=== PATIENT | female | born 1955 | race Caucasian/White ===

== ENCOUNTER 2022-04-02 12:51 | Inpatient (IN) ==
[2022-04-02] MEDS ORDERED: SODIUM CHLORIDE 0.9% 1000ML 1,000 ML IV ONE (12:57)
[2022-04-02] MEDS ORDERED: LORazepam 1 MG/1 ML SYR IV STA (12:57)
[2022-04-02] MEDS ORDERED: LORazepam 1 MG/1 ML SYR ONE (12:59)
--- NOTE | 2022-04-02 13:00 | Emergency Department Note ---
Impression & Plan Severe sepsis with septic shock, Encephalopathy acute, Lactic acidosis, Pneumonia, Elevated troponin, MICHA (acute kidney injury) ED Provider Note Name: JASPREET SANTIZO Age: 66 Sex: F Arrives Via: Ambulance Informant: EMS ED Provider: Vik Daly MD Chief Complaint: Altered mental status Impression: As per impressions above Medical Decision Makin-year-old female without any known past medical history though by examination appears cirrhotic. Patient arrives after having not been seen for 3 days. EMS had to break down her door with police due to patient screaming loudly and neighbors calling 911. Patient arrives hypotensive, confused but severely combative. Temperature is somewhat on the low side. Given the combative behavior with encephalopathy she was given a small dose of Ativan. This resulted in patient actually significantly calm and continues to maintain her own airway with good oxygenation. Septic work-up initiated and she was given 1 L fluid for her initial hypotension. Rectal exam reveals heme positive black stool. She was started on Protonix and hemoglobin returned at 3.5. She was given 2 units of blood emergently. Further IV fluids were held given the severe anemia. Due to worsening hypotension Levophed was ordered as well. She was given empiric IV antibiotics. Initial lactic acid is elevated. This is all consistent with septic shock. Initial chest x-ray is concerning for bilateral pneumonia. A CT of the head, neck, chest, abdomen pelvis without contrast due to renal failure was obtained which reveals bilateral pneumonia no evidence of intracranial hemorrhage. Initial ammonia was hemolyzed thus did not report during my evaluation. She was not given 30 mL/kg IV fluids given the setting of severe anemia and not wishing to dilute and the acute renal failure. She did receive 1 L of normal saline. She had multiple repeat evaluations by both me and the hospitalist and critical care team. Her blood pressure did remain a bit on the low side though maps were sticking right around 65. Patient continued to maintain her airway with good oxygenation. UA is dirty but may be consistent with UTI as well. Critical care was at bedside and placed central line my read revealed no pneumothorax and right IJ could be used for pressors. Patient was transferred to the ICU for further management. Prior Medical Record and Triage/Nursing Notes reviewed by Me Additional history obtained from ems Differentials:Infection, hypoglycemia, electrolyte abnormalities, overdose, toxicologic, cardiac sources, intracerebral event, neurologic, trauma, as well as other pathologies. Vital Signs: reviewed and remarkable for hypotension hypothermia Interventions: Normal saline bolus 1 L IV, 2 units PRBCs IV, Levophed IV, Zosyn IV, Protonix IV Labs:Reviewed and remarkable for significant laboratory abnormalities including hemoglobin of 3.5, elevated white blood cell count, elevated troponin, elevated lactic acid Imaging:As per radiologist reports. Chest x-ray with bilateral pneumonia. CT of the head, neck, chest, abdomen pelvis with bilateral pneumonia EKG:Per My Interpretation: Indication weakness: NSR 91 bpm, qtc 440. No Ectopy. No Ischemia. No previous for comparison Cardiac/Tele Monitoring: Cardiac Monitoring: An Order was placed for continuous cardiac monitoring. The monitor shows a rate of 91 with a normal sinus rhythm. Consults:Dr. Sylvester of critical care service and Dr. Simons of the [facility] service Plan: Disposition:Hospitalization. Condition: Critical History of Present Illness:66-year-old female arrives for evaluation of altered mental status. Patient reportedly had not been seen in several days by her neighbors when they started hearing yelling this morning. Door was broken down by police. Patient was found laying on the ground screaming loudly. She was confused and altered. They were unable to get any history from her EMS brought her in for further evaluation. Apparently blood sugar was normal prior to arrival. Reportedly she was hypotensive, hypoxic on arrival as well for EMS. She was placed on nonrebreather prior to arrival with improvement in her oxygen. No medications prior to arrival. No significant history is known about the patient. ROS: unable to obtain due to patient's altered mental status Past Medical History:Unable to obtain Past Surgical History:Unable to obtain Family History:Unable to obtain Social History:Unable to obtain Home Medications:Unknown Allergies:Unknown Vitals:Blood Pressure: 76/40, Pulse 80, RR 20, T 35.3C, O2 98% on NRB Physical Exam: GENERAL: Patient is unwell/pale appearing and in moderate distress. Periodically yelling unintelligibly, not following commands EYES: No scleral icterus, unremarkable pupils. ENT: Mucous membranes moist, no nasal congestion. NECK: No masses appreciated, nomeningismus, trachea is midline. RESPIRATORY: No dyspnea. Clear to auscultation and equal bilaterally. No wheeze, no rhonchi. CARDIOVASCULAR: Regular rate and rhythm.No murmurs, rubs, gallops appreciated. GASTROINTESTINAL: Abdomen soft, non-tender, no peritonitis.Bowel sounds positive.No masses appreciated. BACK: No midline tenderness, no CVA tenderness EXTREMITIES: Normal motion all extremities, no cyanosis, pitting edema bilateral lower legs NEUROLOGIC: Confused altered, moving all extremities, periodically yelling unintelligibly,, no acute motor or sensory deficits, no focal weakness, cranial nerves grossly intact. SKIN: Age indeterminant bruising left lower chest, right upper lateral back, No rash, no jaundice, no diaphoresis GCS 12 ED Course: Times/Reassessments: Many repeat evaluations and bedside management of patient throughout her stay. Critical Care: I have personally spent 90 minutes of critical care time in the direct management of this patient. Acute encephalopathy with severe anemia, septic shock and GI bleed. Patient requiring resuscitation, blood products, pressors and extensive management. This was a life/limb threatening event. This 90 minutes is in excess of all separately billable procedures. Vik Daly MD Past Med/Surg History Medical History (Updated 04/02/22 @ 20:54 by Vik Daly MD) Medical history unknown Unknown family medical history Surgical History (Updated 04/02/22 @ 19:04 by Celine Simons DO) Surgical history unknown Family History (Updated 04/02/22 @ 19:05 by Celine Simons DO) Other No known problems Social History Smoking Status: Unknown if ever smoked Preferred Language: American Communication Ability: Unable Kosher Inspector Required: No Beliefs That Will Affect Care: None Current Living Situation: Alone Current Living Situation Comment: apartment Feels Safe at Home: Declines to Answer Assistive Devices: None Allergies Allergies Allergy/AdvReac Type Severity Reaction Status Date / Time Sulfa (Sulfonamide Allergy Severe EYES AND Unverified 04/02/22 17:06 Antibiotics) THROAT SWELLING Home Meds Home Medications Medication Instructions Recorded Confirmed fluticasone propionate 50 1 spray intranasal UD 04/02/22 04/02/22 mcg/actuation nasal spray,suspension hydrochlorothiazide 12.5 mg tablet 12.5 mg PO DAILY 04/02/22 04/02/22 loratadine 10 mg tablet 10 mg PO DAILY 04/02/22 04/02/22 Results & Data (ED) Vital Signs Vital Signs - 24 hr 04/02/22 13:11 04/02/22 13:50 04/02/22 14:20 Temperature 35.5 C L 35.5 C L Temperature Source Rectal Rectal Pulse Rate 86 82 Pulse Rate [Apical] 86 Pulse Rate from SpO2 Sensor Respiratory Rate 16 14 12 Blood Pressure 78/56 L 78/57 L Blood Pressure [Left Arm] 86/55 L Blood Pressure Mean 63 64 Blood Pressure Mean [Left Arm] 65 Pulse Oximetry 99 99 98 Oxygen Delivery Method Room Air Room Air Oxygen Flow Rate 0 Sepsis Recent Fever Within 48 Hours No Sepsis New/Unexplained Change in Mental Status Yes Sepsis Action Taken by Nursing Physician Notified 04/02/22 14:26 04/02/22 14:40 04/02/22 13:01 Temperature 35.5 C L 35.5 C L Temperature Source Rectal Rectal Pulse Rate 87 87 Pulse Rate [Apical] Pulse Rate from SpO2 Sensor Respiratory Rate 14 14 Blood Pressure 78/56 L 87/56 L 94/62 L Blood Pressure [Left Arm] Blood Pressure Mean 63 66 72 Blood Pressure Mean [Left Arm] Pulse Oximetry 98 98 Oxygen Delivery Method Oxygen Flow Rate 0 0 Sepsis Recent Fever Within 48 Hours Sepsis New/Unexplained Change in Mental Status Sepsis Action Taken by Nursing 04/02/22 13:01 04/02/22 13:15 04/02/22 13:17 Temperature Temperature Source Pulse Rate 90 85 86 Pulse Rate [Apical] Pulse Rate from SpO2 Sensor 91 H 84 86 Respiratory Rate 20 16 20 Blood Pressure Blood Pressure [Left Arm] Blood Pressure Mean Blood Pressure Mean [Left Arm] Pulse Oximetry 100 100 100 Oxygen Delivery Method Oxygen Flow Rate Sepsis Recent Fever Within 48 Hours Sepsis New/Unexplained Change in Mental Status Sepsis Action Taken by Nursing 04/02/22 13:17 04/02/22 13:41 04/02/22 13:45 Temperature Temperature Source Pulse Rate 88 Pulse Rate [Apical] Pulse Rate from SpO2 Sensor Respiratory Rate 7 L Blood Pressure 81/51 L 86/55 L Blood Pressure [Left Arm] Blood Pressure Mean 61 65 Blood Pressure Mean [Left Arm] Pulse Oximetry Oxygen Delivery Method Oxygen Flow Rate Sepsis Recent Fever Within 48 Hours Sepsis New/Unexplained Change in Mental Status Sepsis Action Taken by Nursing 04/02/22 13:45 04/02/22 14:00 04/02/22 14:00 Temperature Temperature Source Pulse Rate 88 86 Pulse Rate [Apical] Pulse Rate from SpO2 Sensor 88 86 Respiratory Rate 18 16 Blood Pressure 75/55 L Blood Pressure [Left Arm] Blood Pressure Mean 61 Blood Pressure Mean [Left Arm] Pulse Oximetry 98 99 Oxygen Delivery Method Oxygen Flow Rate Sepsis Recent Fever Within 48 Hours Sepsis New/Unexplained Change in Mental Status Sepsis Action Taken by Nursing 04/02/22 14:15 04/02/22 14:15 04/02/22 14:30 Temperature Temperature Source Pulse Rate 82 Pulse Rate [Apical] Pulse Rate from SpO2 Sensor 82 Respiratory Rate 16 Blood Pressure 78/57 L 87/56 L Blood Pressure [Left Arm] Blood Pressure Mean 64 66 Blood Pressure Mean [Left Arm] Pulse Oximetry 98 Oxygen Delivery Method Oxygen Flow Rate Sepsis Recent Fever Within 48 Hours Sepsis New/Unexplained Change in Mental Status Sepsis Action Taken by Nursing 04/02/22 14:30 04/02/22 14:45 04/02/22 14:45 Temperature Temperature Source Pulse Rate 86 88 Pulse Rate [Apical] Pulse Rate from SpO2 Sensor 87 89 Respiratory Rate 15 16 Blood Pressure 74/57 L Blood Pressure [Left Arm] Blood Pressure Mean 62 Blood Pressure Mean [Left Arm] Pulse Oximetry 99 98 Oxygen Delivery Method Oxygen Flow Rate Sepsis Recent Fever Within 48 Hours Sepsis New/Unexplained Change in Mental Status Sepsis Action Taken by Nursing Laboratory Data Result diagrams: 04/02/22 13:02 04/02/22 17:22 Lab Results 04/02/22 04/02/22 04/02/22 Range/Units 13:02 13:02 13:02 WBC (4.8-10.8) K/ul RBC (3.93-5.22) M/uL Hgb (12.0-16.0) g/dl POC Hgb Hct (34.1-44.9) % POC Hct (37-47) % MCV (80.0-100.0) fL MCH (25.0-34.0) pg MCHC (32.0-36.0) g/dL RDW Std Deviation (36.4-46.3) fL RDW Coeff of Jaylin (11.5-14.5) % Plt Count (130-400) K/uL MPV (9.4-12.3) fL Immature Gran % (Auto) % Neut % (Auto) % Lymph % (Auto) % Sierra % (Auto) % Eos % (Auto) % Baso % (Auto) % Neut # (Auto) (1.4-6.5) K/uL Lymph # (Auto) (1.2-3.4) K/uL Sierra # (Auto) (0.24-0.82) K/uL Eos # (Auto) (0-0.50) K/uL Baso # (Auto) (0-0.2) K/uL Immature Gran # (Auto) (0.00-0.02) K/uL Absolute Nucleated RBC (0-0) K/uL Nucleated RBC % (auto) % Macrocytosis PT 19.9 H (9.0-12.0) Seconds INR 1.9 H (0.9-1.1) APTT 27.0 (21.0-31.0) Seconds PTT Ratio 1.0 POC Sodium (135-144) mmol/L Sodium (136-145) mmol/L POC Potassium (3.3-5.0) mmol/L Potassium (3.5-5.1) mmol/L POC Chloride (101-112) mmol/L Chloride (98-107) mmol/L Carbon Dioxide (21-32) mmol/L POC Total CO2 (24-31) mmol/L Anion Gap (3-11) POC Anion Gap (16-25) mmol/L POC BUN (7-18) mg/dl BUN (6-23) mg/dl Creatinine (0.6-1.2) mg/dl POC Creatinine (0.6-1.3) mg/dl Est Cr Clr Drug Dosing Est GFR ( Amer) ml/min Est GFR (Non-Af Amer) ml/min BUN/Creatinine Ratio (10-20) Glucose (70-99(Fasting)) mg/dl POC Glucose (other) (70-99) mg/dl Lactate (0.4-2.0) mmol/L Calcium (8.5-10.1) mg/dl POC Ioniz Calcium Paty (1.12-1.32) mmol/l Magnesium (1.7-2.4) mg/dl Total Bilirubin (0.2-1.0) mg/dl Direct Bilirubin AST (13-39) U/L ALT (7-52) U/L Alkaline Phosphatase (34-104) U/L Ammonia TNP Total Creatine Kinase (26-192) U/L Troponin I High Sens (0-14) pg/ml Total Protein (6.0-8.3) gm/dl Albumin (3.4-5.0) gm/dl Lipase (11-82) U/L Urine Color Urine Appearance (Clear) Urine pH (4.5-7.5) Ur Specific Exeter (1.000-1.030) Urine Protein (Negative) Urine Glucose (UA) (Negative) Urine Ketones (Negative) Urine Blood (Negative) Urine Nitrite (Negative) Urine Bilirubin (Negative) Urine Urobilinogen (Negative) Ur Leukocyte Esterase (Negative) Urine WBC (Auto) (0-5) /hpf Urine RBC (Auto) (0-4) /hpf U Hyaline Cast (Auto) (0-5) /lpf U Epithel Cells (Auto) (0-5) /lpf Urine Bacteria (Auto) (Negative) Urine Yeast Urine Opiates Screen (Neg) Ur Methadone, Qual (Neg) Urine Barbiturates (Neg) Ur Phencyclidine (PCP) (Neg) U Amphetamin/Meth Scrn (Neg) MDMA (Ecstasy) Screen (Neg) U Benzodiazepines Scrn (Neg) Ur Cocaine Metabolite (Neg) U Marijuana (THC) Screen (Neg) Ethyl Alcohol mg/dL (<10.0) mg/dl SARS-CoV-2, RNA, NAAT (NEGATIVE) Blood Type AB Negative Antibody Screen NEGATIVE Crossmatch See Detail 04/02/22 04/02/22 04/02/22 Range/Units 13:02 13:02 13:02 WBC 20.94 H (4.8-10.8) K/ul RBC 0.96 L (3.93-5.22) M/uL Hgb 3.5 L* (12.0-16.0) g/dl POC Hgb Hct 11.3 L* (34.1-44.9) % POC Hct (37-47) % MCV 117.7 H (80.0-100.0) fL MCH 36.5 H (25.0-34.0) pg MCHC 31.0 L (32.0-36.0) g/dL RDW Std Deviation 62.7 H (36.4-46.3) fL RDW Coeff of Jaylin 15.1 H (11.5-14.5) % Plt Count 228 (130-400) K/uL MPV 11.9 (9.4-12.3) fL Immature Gran % (Auto) 0.8 % Neut % (Auto) 73.5 % Lymph % (Auto) 19.4 % Sierra % (Auto) 6.0 % Eos % (Auto) 0.2 % Baso % (Auto) 0.1 % Neut # (Auto) 15.38 H (1.4-6.5) K/uL Lymph # (Auto) 4.06 H (1.2-3.4) K/uL Sierra # (Auto) 1.26 H (0.24-0.82) K/uL Eos # (Auto) 0.05 (0-0.50) K/uL Baso # (Auto) 0.02 (0-0.2) K/uL Immature Gran # (Auto) 0.17 H (0.00-0.02) K/uL Absolute Nucleated RBC 0.03 H (0-0) K/uL Nucleated RBC % (auto) 0.1 % Macrocytosis Present PT (9.0-12.0) Seconds INR (0.9-1.1) APTT (21.0-31.0) Seconds PTT Ratio POC Sodium (135-144) mmol/L Sodium 141 (136-145) mmol/L POC Potassium (3.3-5.0) mmol/L Potassium 4.0 (3.5-5.1) mmol/L POC Chloride (101-112) mmol/L Chloride 102 (98-107) mmol/L Carbon Dioxide 19 L (21-32) mmol/L POC Total CO2 (24-31) mmol/L Anion Gap 20 H (3-11) POC Anion Gap (16-25) mmol/L POC BUN (7-18) mg/dl BUN 127 H (6-23) mg/dl Creatinine 3.70 H (0.6-1.2) mg/dl POC Creatinine (0.6-1.3) mg/dl Est Cr Clr Drug Dosing Not Reportable Est GFR ( Amer) 14.1 ml/min Est GFR (Non-Af Amer) 12.1 ml/min BUN/Creatinine Ratio 34.3 H (10-20) Glucose 91 (70-99(Fasting)) mg/dl POC Glucose (other) (70-99) mg/dl Lactate (0.4-2.0) mmol/L Calcium 8.2 L (8.5-10.1) mg/dl POC Ioniz Calcium Paty (1.12-1.32) mmol/l Magnesium 3.1 H (1.7-2.4) mg/dl Total Bilirubin 3.0 H (0.2-1.0) mg/dl Direct Bilirubin TNP AST 104 H (13-39) U/L ALT 31 (7-52) U/L Alkaline Phosphatase 111 H (34-104) U/L Ammonia Total Creatine Kinase 205 H (26-192) U/L Troponin I High Sens 74.0 H* (0-14) pg/ml Total Protein 5.1 L (6.0-8.3) gm/dl Albumin 2.2 L (3.4-5.0) gm/dl Lipase 115 H (11-82) U/L Urine Color Urine Appearance (Clear) Urine pH (4.5-7.5) Ur Specific Exeter (1.000-1.030) Urine Protein (Negative) Urine Glucose (UA) (Negative) Urine Ketones (Negative) Urine Blood (Negative) Urine Nitrite (Negative) Urine Bilirubin (Negative) Urine Urobilinogen (Negative) Ur Leukocyte Esterase (Negative) Urine WBC (Auto) (0-5) /hpf Urine RBC (Auto) (0-4) /hpf U Hyaline Cast (Auto) (0-5) /lpf U Epithel Cells (Auto) (0-5) /lpf Urine Bacteria (Auto) (Negative) Urine Yeast Urine Opiates Screen (Neg) Ur Methadone, Qual (Neg) Urine Barbiturates (Neg) Ur Phencyclidine (PCP) (Neg) U Amphetamin/Meth Scrn (Neg) MDMA (Ecstasy) Screen (Neg) U Benzodiazepines Scrn (Neg) Ur Cocaine Metabolite (Neg) U Marijuana (THC) Screen (Neg) Ethyl Alcohol mg/dL < 10.0 (<10.0) mg/dl SARS-CoV-2, RNA, NAAT (NEGATIVE) Blood Type Antibody Screen Crossmatch 04/02/22 04/02/22 04/02/22 Range/Units 13:07 13:10 13:15 WBC (4.8-10.8) K/ul RBC (3.93-5.22) M/uL Hgb (12.0-16.0) g/dl POC Hgb TNP Hct (34.1-44.9) % POC Hct < 15 L* (37-47) % MCV (80.0-100.0) fL MCH (25.0-34.0) pg MCHC (32.0-36.0) g/dL RDW Std Deviation (36.4-46.3) fL RDW Coeff of Jaylin (11.5-14.5) % Plt Count (130-400) K/uL MPV (9.4-12.3) fL Immature Gran % (Auto) % Neut % (Auto) % Lymph % (Auto) % Sierra % (Auto) % Eos % (Auto) % Baso % (Auto) % Neut # (Auto) (1.4-6.5) K/uL Lymph # (Auto) (1.2-3.4) K/uL Sierra # (Auto) (0.24-0.82) K/uL Eos # (Auto) (0-0.50) K/uL Baso # (Auto) (0-0.2) K/uL Immature Gran # (Auto) (0.00-0.02) K/uL Absolute Nucleated RBC (0-0) K/uL Nucleated RBC % (auto) % Macrocytosis PT (9.0-12.0) Seconds INR (0.9-1.1) APTT (21.0-31.0) Seconds PTT Ratio POC Sodium 139 (135-144) mmol/L Sodium (136-145) mmol/L POC Potassium 3.7 (3.3-5.0) mmol/L Potassium (3.5-5.1) mmol/L POC Chloride 102 (101-112) mmol/L Chloride (98-107) mmol/L Carbon Dioxide (21-32) mmol/L POC Total CO2 18 L (24-31) mmol/L Anion Gap (3-11) POC Anion Gap 24.0 (16-25) mmol/L POC BUN 126 H* (7-18) mg/dl BUN (6-23) mg/dl Creatinine (0.6-1.2) mg/dl POC Creatinine 4.1 H (0.6-1.3) mg/dl Est Cr Clr Drug Dosing Est GFR ( Amer) ml/min Est GFR (Non-Af Amer) ml/min BUN/Creatinine Ratio (10-20) Glucose (70-99(Fasting)) mg/dl POC Glucose (other) 92 (70-99) mg/dl Lactate 6.1 H* (0.4-2.0) mmol/L Calcium (8.5-10.1) mg/dl POC Ioniz Calcium Paty 1.02 L (1.12-1.32) mmol/l Magnesium (1.7-2.4) mg/dl Total Bilirubin (0.2-1.0) mg/dl Direct Bilirubin AST (13-39) U/L ALT (7-52) U/L Alkaline Phosphatase (34-104) U/L Ammonia Total Creatine Kinase (26-192) U/L Troponin I High Sens (0-14) pg/ml Total Protein (6.0-8.3) gm/dl Albumin (3.4-5.0) gm/dl Lipase (11-82) U/L Urine Color Dark Yellow Urine Appearance Turbid A (Clear) Urine pH 5.0 (4.5-7.5) Ur Specific [place]eter 1.018 (1.000-1.030) Urine Protein 1+ H (Negative) Urine Glucose (UA) Negative (Negative) Urine Ketones Trace H (Negative) Urine Blood Trace H (Negative) Urine Nitrite Positive A (Negative) Urine Bilirubin 1+ H (Negative) Urine Urobilinogen Negative (Negative) Ur Leukocyte Esterase 3+ H (Negative) Urine WBC (Auto) >30 H (0-5) /hpf Urine RBC (Auto) 0-4 (0-4) /hpf U Hyaline Cast (Auto) 5-10 H (0-5) /lpf U Epithel Cells (Auto) >30 H (0-5) /lpf Urine Bacteria (Auto) 4+ H (Negative) Urine Yeast Not Reportable Urine Opiates Screen (Neg) Ur Methadone, Qual (Neg) Urine Barbiturates (Neg) Ur Phencyclidine (PCP) (Neg) U Amphetamin/Meth Scrn (Neg) MDMA (Ecstasy) Screen (Neg) U Benzodiazepines Scrn (Neg) Ur Cocaine Metabolite (Neg) U Marijuana (THC) Screen (Neg) Ethyl Alcohol mg/dL (<10.0) mg/dl SARS-CoV-2, RNA, NAAT (NEGATIVE) Blood Type Antibody Screen Crossmatch 04/02/22 04/02/22 Range/Units 13:15 13:55 WBC (4.8-10.8) K/ul RBC (3.93-5.22) M/uL Hgb (12.0-16.0) g/dl POC Hgb Hct (34.1-44.9) % POC Hct (37-47) % MCV (80.0-100.0) fL MCH (25.0-34.0) pg MCHC (32.0-36.0) g/dL RDW Std Deviation (36.4-46.3) fL RDW Coeff of Jaylin (11.5-14.5) % Plt Count (130-400) K/uL MPV (9.4-12.3) fL Immature Gran % (Auto) % Neut % (Auto) % Lymph % (Auto) % Sierra % (Auto) % Eos % (Auto) % Baso % (Auto) % Neut # (Auto) (1.4-6.5) K/uL Lymph # (Auto) (1.2-3.4) K/uL Sierra # (Auto) (0.24-0.82) K/uL Eos # (Auto) (0-0.50) K/uL Baso # (Auto) (0-0.2) K/uL Immature Gran # (Auto) (0.00-0.02) K/uL Absolute Nucleated RBC (0-0) K/uL Nucleated RBC % (auto) % Macrocytosis PT (9.0-12.0) Seconds INR (0.9-1.1) APTT (21.0-31.0) Seconds PTT Ratio POC Sodium (135-144) mmol/L Sodium (136-145) mmol/L POC Potassium (3.3-5.0) mmol/L Potassium (3.5-5.1) mmol/L POC Chloride (101-112) mmol/L Chloride (98-107) mmol/L Carbon Dioxide (21-32) mmol/L POC Total CO2 (24-31) mmol/L Anion Gap (3-11) POC Anion Gap (16-25) mmol/L POC BUN (7-18) mg/dl BUN (6-23) mg/dl Creatinine (0.6-1.2) mg/dl POC Creatinine (0.6-1.3) mg/dl Est Cr Clr Drug Dosing Est GFR ( Amer) ml/min Est GFR (Non-Af Amer) ml/min BUN/Creatinine Ratio (10-20) Glucose (70-99(Fasting)) mg/dl POC Glucose (other) (70-99) mg/dl Lactate (0.4-2.0) mmol/L Calcium (8.5-10.1) mg/dl POC Ioniz Calcium Paty (1.12-1.32) mmol/l Magnesium (1.7-2.4) mg/dl Total Bilirubin (0.2-1.0) mg/dl Direct Bilirubin AST (13-39) U/L ALT (7-52) U/L Alkaline Phosphatase (34-104) U/L Ammonia Total Creatine Kinase (26-192) U/L Troponin I High Sens (0-14) pg/ml Total Protein (6.0-8.3) gm/dl Albumin (3.4-5.0) gm/dl Lipase (11-82) U/L Urine Color Urine Appearance (Clear) Urine pH (4.5-7.5) Ur Specific [place]eter (1.000-1.030) Urine Protein (Negative) Urine Glucose (UA) (Negative) Urine Ketones (Negative) Urine Blood (Negative) Urine Nitrite (Negative) Urine Bilirubin (Negative) Urine Urobilinogen (Negative) Ur Leukocyte Esterase (Negative) Urine WBC (Auto) (0-5) /hpf Urine RBC (Auto) (0-4) /hpf U Hyaline Cast (Auto) (0-5) /lpf U Epithel Cells (Auto) (0-5) /lpf Urine Bacteria (Auto) (Negative) Urine Yeast Urine Opiates Screen Neg (Neg) Ur Methadone, Qual Neg (Neg) Urine Barbiturates Neg (Neg) Ur Phencyclidine (PCP) Neg (Neg) U Amphetamin/Meth Scrn Neg (Neg) MDMA (Ecstasy) Screen Neg (Neg) U Benzodiazepines Scrn Neg (Neg) Ur Cocaine Metabolite Neg (Neg) U Marijuana (THC) Screen Neg (Neg) Ethyl Alcohol mg/dL (<10.0) mg/dl SARS-CoV-2, RNA, NAAT NEGATIVE (NEGATIVE) Blood Type Antibody Screen Crossmatch Administered Medications Norepinephrine Bitartrate (Levophed/D5w) 4 mg in 250 mls @ 12.056 mls/hr IV .[id number] JAYLEN; Protocol Stop: 05/02/22 14:14 Last Titration: 04/02/22 17:56 Dose: 0 mcg/kg/min, 0 mls/hr Documented By: Titration: 04/02/22 16:48 Dose: 0.09 mcg/kg/min, 21.7 mls/hr Documented By: Titration: 04/02/22 16:34 Dose: 0.07 mcg/kg/min, 16.9 mls/hr Documented By: Admin: 04/02/22 16:13 Dose: 0.05 mcg/kg/min, 12.1 mls/hr Documented By: ES Co-signed By: ANABELA Phenylephrine HCl 20 mg/ (Dextrose) 502 mls @ 87.152 mls/hr IV .[id number] JAYLEN; Protocol Stop: 05/02/22 17:14 Last Titration: 04/02/22 19:15 Dose: 0.9 mcg/kg/min, 87.2 mls/hr Documented By: CAM Co-signed By: CF Titration: 04/02/22 18:59 Dose: 0.9 mcg/kg/min, 87.2 mls/hr Documented By: Titration: 04/02/22 18:27 Dose: 0.7 mcg/kg/min, 67.8 mls/hr Documented By: Admin: 04/02/22 17:44 Dose: 0.5 mcg/kg/min, 48.4 mls/hr Documented By: CAM Co-signed By: JOSH Thiamine HCl 500 mg/ Sodium (Chloride) 55 mls @ 220 mls/hr IV Q8H JAYLEN Stop: 05/02/22 17:29 Last Infusion: 04/02/22 19:16 Dose: 0 mls/hr Documented By: Admin: 04/02/22 18:41 Dose: 220 mls/hr Documented By: CAM Vasopressin 20 units/ Sodium (Chloride) 101 mls @ 12.12 mls/hr IV .[id number] JAYLEN Stop: 05/02/22 19:14 Last Admin: 04/02/22 19:21 Dose: 0.04 unit/min, 12.1 mls/hr Documented By: MILLER Co-signed By: QUIN Octreotide Acetate 500 mcg/ (Dextrose) 100.5 mls @ 10.05 mls/hr IV .Q10H JAYLEN Stop: 05/02/22 20:29 Last Admin: 04/02/22 20:42 Dose: 50 mcg/hr, 10.1 mls/hr Documented By: CF Lactulose (Lactulose Syrup 30 Gm/45 Ml Udp) 30 gm PO TID JAYLEN Stop: 05/02/22 20:59 Last Admin: 04/02/22 20:42 Dose: 30 gm Documented By: CF Discontinued Medications Sodium Chloride (Nss 1000ml) 1,000 mls @ 999 mls/hr IV .Q1H1M ONE Stop: 04/02/22 13:57 Last Infusion: 04/02/22 14:13 Dose: 0 mls/hr Documented By: Admin: 04/02/22 13:10 Dose: 999 mls/hr Documented By: ELY Pantoprazole Sodium 80 mg/ (Dextrose) 100 mls @ 400 mls/hr IV ONE STA Stop: 04/02/22 13:43 Last Infusion: 04/02/22 14:29 Dose: 0 mls/hr Documented By: Admin: 04/02/22 14:09 Dose: 400 mls/hr Documented By: ELY Piperacillin Sod/Tazobactam Sod (Zosyn) 4.5 gm in 120 mls @ 240 mls/hr IV NOW ONE Stop: 04/02/22 14:19 Last Infusion: 04/02/22 14:29 Dose: 0 mls/hr Documented By: Admin: 04/02/22 13:59 Dose: 240 mls/hr Documented By: OL Vancomycin HCl 1,250 mg/ (Sodium Chloride) 275 mls @ 200 mls/hr IV NOW ONE Stop: 04/02/22 18:22 Last Infusion: 04/02/22 19:21 Dose: 0 mls/hr Documented By: Admin: 04/02/22 17:15 Dose: 200 mls/hr Documented By: QUIN Lorazepam 1 mg/ Syringe 1 mls @ 2 mls/min IV NOW STA Stop: 04/02/22 17:10 Last Admin: 04/02/22 19:21 Dose: Not Given Documented By: QUIN Phytonadione 2.5 mg/ Dextrose 50.25 mls @ 100.5 mls/hr IV ONE ONE Stop: 04/02/22 17:59 Last Infusion: 04/02/22 19:21 Dose: 0 mls/hr Documented By: Admin: 04/02/22 17:31 Dose: 100.5 mls/hr Documented By: QUIN Influenza Virus Vaccine (Influenza Vaccine High Dose Pf 65+ 0.7 Ml Syr) 0.7 ml IM .ONCE ONE Stop: 04/02/22 17:29 Last Admin: 04/02/22 17:50 Dose: Not Given Documented By: CAM Lorazepam (Lorazepam 2 Mg/2 Ml Syr) 1 mg IV NOW STA; Protocol Stop: 04/02/22 12:58 Last Admin: 04/02/22 13:10 Dose: 1 mg Documented By: OL Lorazepam (Lorazepam 2 Mg/2 Ml Syr) Confirm Administered Dose 2 mg .ROUTE .STK- MED ONE Stop: 04/02/22 13:00 Last Admin: 04/02/22 13:10 Dose: Not Given Documented By: OL Miscellaneous (Stat Iv Infusion Titration Per Protocol) 1 each N/A NOW STA Stop: 04/02/22 14:06 Last Admin: 04/02/22 15:12 Dose: Not Given Documented By: ES Miscellaneous (Patient's Height &/Or Weight Needed) 1 each N/A Q20M JAYLEN Stop: 05/02/22 16:44 Last Admin: 04/02/22 16:33 Dose: Not Given Documented By: Admin: 04/02/22 16:33 Dose: Not Given Documented By: Admin: 04/02/22 16:33 Dose: Not Given Documented By: Admin: 04/02/22 16:33 Dose: Not Given Documented By: Admin: 04/02/22 16:33 Dose: Not Given Documented By: Admin: 04/02/22 16:33 Dose: Not Given Documented By: Admin: 04/02/22 16:32 Dose: 1 each Documented By: ES Pneumococcal Polyvalent Vaccine (Pneumococcal Polysaccharides 25 Mcg/0.5 Ml Vial/Syr) 25 mcg IM .ONCE ONE Stop: 04/02/22 17:29 Last Admin: 04/02/22 17:51 Dose: Not Given Documented By: CAM Imaging Data Radiologist's Impression: Head CT 04/02/22 12:57 CT head/brain wo con CLINICAL HISTORY: 66 years-old Female with altered mental status. Acutely a ltered mental status TECHNIQUE: Multiple axial CT images of the head were obtained without contrast. A dose lowering technique was utilized adhering to the principles of ALARA. CT DOSE: 1782.68 mGy.cm COMPARISON: CT cervical spine of same day FINDINGS: No acute intracranial hemorrhage, midline shift, intracranial mass, hydrocephalus, territorial ischemia or abnormal extra-axial collection.. Mild involutional changes. White matter hypodensities suggestive of chronic microvascular ischemic disease. Study is mildly motion degraded. The calvarium is intact. Trace mastoid effusions. Paranasal sinuses are clear. Prior bilateral lens repair. Unremarkable soft tissues. IMPRESSION: No acute intracranial abnormality. ACT 112: Negative or not required by law. The above report was generated using voice recognition software. It may contain grammatical, syntax or spelling errors. Electronically signed by: Olayinka Ramos M.D. 04/02/2022 2:00 PM Chest X-Ray 04/02/22 12:58 SUPINE PORTABLE AP CHEST RADIOGRAPH CLINICAL HISTORY: Altered mental status. COMPARISON STUDY: No previous studies for comparison. FINDINGS: Lung volumes are mildly diminished. No pneumothorax is identified on supine exam. No pleural effusion is identified. Cardiomediastinal silhouette is within normal limits given supine projection. Left basilar airspace opacity is present. There may be mild right apical opacity. Interstitial prominence is probably technical. IMPRESSION: Left basilar opacity which could reflect pneumonia or atelectasis. Possible right apical opacity. Findings can be assessed on chest CT which has been ordered. ACT 112: Negative or not required by law. Electronically signed by: Franklyn Finney M.D. 04/02/2022 1:34 PM Abdomen/Pelvis CT 04/02/22 13:17 CT OF THE ABDOMEN AND PELVIS WITHOUT CONTRAST CLINICAL HISTORY: Trauma. Altered mental status. COMPARISON STUDY: No previous studies for comparison. TECHNIQUE: Axial images of the abdomen and pelvis were obtained without IV contrast. Images were reviewed in the axial, sagittal, and coronal planes. Automated exposure control was utilized for the study. A dose lowering technique was utilized adhering to the principles of ALARA. FINDINGS: Please note that the chest CT will be reported separately. Airspace opacities within the lingula and left lower lobe are noted. No pneumatosis, free air or portal venous gas is present. The liver is heterogeneous with multiple hypodense foci, including a 2.9 cm exophytic focus arising from the lateral segment on axial image 134 of 491. Liver is suboptimally assessed on this unenhanced exam. Capsular retraction of the right hepatic lobe is noted. The liver is cirrhotic. Varices are noted. Size of the spleen is within normal l imits. Moderate abdominal and pelvic ascites is present. There is anasarca. Gallstones within the gallbladder are noted. Unenhanced images of the adrenal glands, kidneys and pancreas are unremarkable. There is no hydronephrosis. There are no urinary calculi. No enlarged abdominal or pelvic lymph nodes are noted. There is no evidence for a bowel obstruction. Sigmoid diverticula cysts present without evidence for acute diverticulitis. Right colon wall thickening is present. Small fluid containing right inguinal hernia is present. Baum is coiled within the bladder. No acute traumatic findings are identified within the abdomen or pelvis on unenhanced exam. No acute fracture within the lumbar spine, pelvis or hips is identified. IMPRESSION: 1. No acute traumatic findings within the abdomen or pelvis on unenhanced exam. 2. Cirrhotic liver. Extensive hypodense foci throughout the liver with capsular retraction. Although the findings could represent hepatic steatosis, a neoplastic etiology such as metastatic disease or multifocal hepatocellular carcinoma/cholangiocarcinoma cannot be excluded. A liver protocol CT is recommended on nonemergent basis. 3. Sequela of portal hypertension including varices formation and moderate ascites. Anasarca. 4. Right colon wall thickening. This may be related to portal hypertension however a nonspecific colitis could appear similar. No bowel obstruction. 5. Cholelithiasis. 6. Lingular and left lower lobe airspace opacity which could reflect pneumonia or alveolar pulmonary edema. ACT 112: Positive. There are findings on this exam that require communication between the performing entity and the patient following Patient Test Result Information Act ([place] Act 112) guidelines. Electronically signed by: Franklyn Finney M.D. 04/02/2022 2:[address] 04/02/22 13:17 CT SCAN OF THE CERVICAL SPINE CLINICAL HISTORY: Trauma. COMPARISON STUDY: MRI of the cervical spine dated 10/03/2006. TECHNIQUE: CT scan of the cervical spine is performed from the skull base to the upper thoracic spine. Images are reviewed in the axial, sagittal, and coronal planes. IV contrast was not administered for this examination. A dose lowering technique was utilized adhering to the principles of ALARA. FINDINGS: Skeletal structures: The skeletal structures are well mineralized. There is no evidence of fracture or subluxation involving the cervical spine. Vertebral body height and alignment are maintained. There is straightening of the cervical lordosis with reversal centered at C5. Anterior osteophytes are noted in the lower cervical region. The odontoid process and lateral masses are intact. The atlantoaxial articulation is preserved noting mild productive degenerative change. The spinous processes appear intact. There is multilevel facet arthropathy. Intervertebral discs: There is moderate disc space narrowing at C6-C7. Only mild disc space narrowing is seen at the remaining cervical levels. Central canal: Grossly patent. Soft tissues: The prevertebral and paraspinous soft tissues are within normal limits. Mild soft tissue edema is seen in the upper chest wall. Calvarium: The visualized calvarium at the skull base appears intact. Brain parenchyma: Partially visualized brain parenchyma at the skull base is within normal limits. Sinuses and mastoids: The visualized paranasal sinuses are clear. There is a moderate left mastoid effusion. Only trace mastoid effusion is seen on the left. Lung apices: Airspace consolidation is seen at the right apex. IMPRESSION: 1. There is no evidence of fracture or subluxation involving the cervical spine. 2. Osteopenia and mild spondylotic changes above. 3. Airspace consolidation is seen at the right apex. 4. Nonspecific soft tissue edema is noted in the upper chest wall. ACT 112: Negative or not required by law. Electronically signed by: Omero Stanley M.D. 04/02/2022 1:[address] 04/02/22 13:17 CT chest diagnostic wo con CLINICAL HISTORY: trauma, ams TECHNIQUE: Multidetector row helical CT of the chest was performed. Coronal and sagittal reformations were obtained. Automated dose lowering techniques and/or adjustment according to patient size were utilized for this exam. Comparison: Comparison is made to chest radiograph 04/02/2022 FINDINGS: Exam is limited by patient motion. Lungs and pleura: Consolidative opacity with cysts noted most prominently in the right upper lobe. Groundglass and consolidation is also noted throughout, most prominently in the lingula and left lower lobe. Heart and pericardium: Cardiomegaly is seen with biatrial enlargement. Vessels: Mild atherosclerotic changes in the aorta and coronary arteries. The pulmonary trunk measures 32 mm in diameter. Mediastinum and lopez: Subcentimeter lymph nodes are seen. Chest wall and lower neck: Subcentimeter axillary lymph nodes noted. Abdomen: For findings below the diaphragm, please refer to CT of the abdomen dated the same. Bones: Degenerative changes of the thoracic spine. Old healed rib fractures are seen. IMPRESSION: Multifocal airspace opacities are seen which may represent pneumonia and/or aspiration. Follow-up to resolution is recommended. ACT 112: Negative or not required by law. Electronically signed by: Johnathon Humphrey M.D. 04/02/2022 2:20 PM Discharge Plan Visit Data Chief Complaint: Weakness ED Provider: Vik Daly Discharge Problem: Severe sepsis with septic shock, Encephalopathy acute, Lactic acidosis, P neumonia, Elevated troponin, MICHA (acute kidney injury) Patient Disposition: Admitted As Inpatient Discharge Instructions Interventions: ED Discharge Assessment Last Done: 04/02/22 16:36
[2022-04-02] MEDS ORDERED: SODIUM CHLORIDE 0.9% 250 ML IV PRN ×3 (13:20→16:38)
[2022-04-02] MEDS ORDERED: PANTOprazole 80 MG in DEXTROSE 5% 100 ML IV STA (13:29)
--- NOTE | 2022-04-02 13:35 | XRay Report ---
SUPINE PORTABLE AP CHEST RADIOGRAPH CLINICAL HISTORY: Altered mental status. COMPARISON STUDY: No previous studies for comparison. FINDINGS: Lung volumes are mildly diminished. No pneumothorax is identified on supine exam. No pleura l effusion is identified. Cardiomediastinal silhouette is within normal limits given supine projectio n. Left basilar airspace opacity is present. There may be mild right apical opacity. Interstitial pro minence is probably technical. IMPRESSION: Left basilar opacity which could reflect pneumonia or atelectasis. Possible right apical opacity. Findings can be assessed on chest CT which has been ordered. ACT 112: Negative or not required by law. Electronically signed by: Franklyn Finney M.D. 04/02/2022 1:34 PM
[2022-04-02 13:40] LABS: INR 1.9 (0.9-1.1); Prothrombin Time 19.9 Seconds (9.0-12.0)
[2022-04-02 13:43] LABS: Appearance Urine Turbid (Clear); Bacteria Urine Automated 4+ (Negative); Blood Urine Trace (Negative); Color Urine Dark Yellow; Epithelial Cell Urine Auto >30 /lpf (0-5); Glucose Urine UA Negative (Negative); Ketones Urine Trace (Negative); Leukocyte Esterase Urine 3+ (Negative); Nitrite Urine Positive (Negative); Protein Urine 1+ (Negative); Specific Gravity Urine 1.018 (1.000-1.030); Urobilinogen Urine Negative (Negative); WBC Urine Automated >30 /hpf (0-5)
[2022-04-02 13:43] LABS: Hematocrit (blood only) 11.3 % (34.1-44.9); Hemoglobin 3.5 g/dl (12.0-16.0); Mean Corpuscular Hemoglobin 36.5 pg (25.0-34.0); Mean Corpuscular Volume 117.7 fL (80.0-100.0); Mean Platelet Volume 11.9 fL (9.4-12.3); Nucleated RBC # (auto) 0.03 K/uL (0-0); Nucleated RBC % (auto) 0.1 %; Platelet Count 228 K/uL (130-400); RDW Coefficient of Variation 15.1 % (11.5-14.5); RDW Standard Deviation 62.7 fL (36.4-46.3); Red Blood Count 0.96 M/uL (3.93-5.22); White Blood Count 20.94 K/ul (4.8-10.8)
[2022-04-02 13:45] LABS: Bilirubin Urine 1+ (Negative)
[2022-04-02] MEDS ORDERED: PIPERACILLIN/TAZOBACTAM 4.5 GM/120 ML BAG IV ONE (13:50)
--- NOTE | 2022-04-02 13:52 | CT Scan Report ---
CT SCAN OF THE CERVICAL SPINE CLINICAL HISTORY: Trauma. COMPARISON STUDY: MRI of the cervical spine dated 10/03/2006. TECHNIQUE: CT scan of the cervical spine is performed from the skull base to the upper thoracic spine . Images are reviewed in the axial, sagittal, and coronal planes. IV contrast was not administered fo r this examination. A dose lowering technique was utilized adhering to the principles of ALARA. FINDINGS: Skeletal structures: The skeletal structures are well mineralized. There is no evidence of fracture o r subluxation involving the cervical spine. Vertebral body height and alignment are maintained. There is straightening of the cervical lordosis with reversal centered at C5. Anterior osteophytes are not ed in the lower cervical region. The odontoid process and lateral masses are intact. The atlantoaxia l articulation is preserved noting mild productive degenerative change. The spinous processes appear intact. There is multilevel facet arthropathy. Intervertebral discs: There is moderate disc space narrowing at C6-C7. Only mild disc space narrowing is seen at the remaining cervical levels. Central canal: Grossly patent. Soft tissues: The prevertebral and paraspinous soft tissues are within normal limits. Mild soft tissu e edema is seen in the upper chest wall. Calvarium: The visualized calvarium at the skull base appears intact. Brain parenchyma: Partially visualized brain parenchyma at the skull base is within normal limits. Sinuses and mastoids: The visualized paranasal sinuses are clear. There is a moderate left mastoid ef fusion. Only trace mastoid effusion is seen on the left. Lung apices: Airspace consolidation is seen at the right apex. IMPRESSION: 1. There is no evidence of fracture or subluxation involving the cervical spine. 2. Osteopenia and mild spondylotic changes above. 3. Airspace consolidation is seen at the right apex. 4. Nonspecific soft tissue edema is noted in the upper chest wall. ACT 112: Negative or not required by law. Electronically signed by: Omero Stanley M.D. 04/02/2022 1:49 PM
[2022-04-02 14:01] LABS: RBC Urine Automated 0-4 /hpf (0-4)
--- NOTE | 2022-04-02 14:01 | CT Scan Report ---
CT head/brain wo con CLINICAL HISTORY: 66 years-old Female with altered mental status. Acutely altered mental status TECHNIQUE: Multiple axial CT images of the head were obtained without contrast. A dose lowering tech nique was utilized adhering to the principles of ALARA. CT DOSE: 1782.68 mGy.cm COMPARISON: CT cervical spine of same day FINDINGS: No acute intracranial hemorrhage, midline shift, intracranial mass, hydrocephalus, territorial ischem ia or abnormal extra-axial collection.. Mild involutional changes. White matter hypodensities suggest yunior of chronic microvascular ischemic disease. Study is mildly motion degraded. The calvarium is intact. Trace mastoid effusions. Paranasal sinuses are clear. Prior bilateral lens repair. Unremarkable soft tissues. IMPRESSION: No acute intracranial abnormality. ACT 112: Negative or not required by law. The above report was generated using voice recognition software. It may contain grammatical, syntax o r spelling errors. Electronically signed by: Olayinka Ramos M.D. 04/02/2022 2:00 PM
[2022-04-02 14:04] LABS: iSTAT Blood Urea Nitrogen 126 mg/dl (7-18); iSTAT Carbon Dioxide 18 mmol/L (24-31); iSTAT Chloride 102 mmol/L (101-112); iSTAT Creatinine 4.1 mg/dl (0.6-1.3); iSTAT Glucose 92 mg/dl (70-99); iSTAT Hematocrit < 15 % (37-47); iSTAT Ionized Calcium 1.02 mmol/l (1.12-1.32); iSTAT Potassium 3.7 mmol/L (3.3-5.0); iSTAT Sodium 139 mmol/L (135-144)
[2022-04-02] MEDS ORDERED: STAT IV Infusion **Titration per Protocol STA ×4 (14:05→19:06)
[2022-04-02 14:12] LABS: Basophils # (auto) 0.02 K/uL (0-0.2); Basophils % (auto) 0.1 %; Eosinophils # (auto) 0.05 K/uL (0-0.50); Eosinophils % (auto) 0.2 %; Immature Granulocytes # (auto) 0.17 K/uL (0.00-0.02); Immature Granulocytes % (auto) 0.8 %; Lymphocytes # (auto) 4.06 K/uL (1.2-3.4); Lymphocytes % (auto) 19.4 %; Macrocytosis Present; Monocytes # (auto) 1.26 K/uL (0.24-0.82); Neutrophils # (auto) 15.38 K/uL (1.4-6.5); Neutrophils % (auto) 73.5 %
[2022-04-02] MEDS ORDERED: NOREPINEPHRINE/D5W 4 MG/250 ML PLCT IV SCH (14:15)
--- NOTE | 2022-04-02 14:22 | CT Scan Report ---
CT chest diagnostic wo con CLINICAL HISTORY: trauma, ams TECHNIQUE: Multidetector row helical CT of the chest was performed. Coronal and sagittal reformations were obtained. Automated dose lowering techniques and/or adjustment according to patient size were u tilized for this exam. Comparison: Comparison is made to chest radiograph 04/02/2022 FINDINGS: Exam is limited by patient motion. Lungs and pleura: Consolidative opacity with cysts noted most prominently in the right upper lobe. Gr oundglass and consolidation is also noted throughout, most prominently in the lingula and left lower lobe. Heart and pericardium: Cardiomegaly is seen with biatrial enlargement. Vessels: Mild atherosclerotic changes in the aorta and coronary arteries. The pulmonary trunk measure s 32 mm in diameter. Mediastinum and lopez: Subcentimeter lymph nodes are seen. Chest wall and lower neck: Subcentimeter axillary lymph nodes noted. Abdomen: For findings below the diaphragm, please refer to CT of the abdomen dated the same. Bones: Degenerative changes of the thoracic spine. Old healed rib fractures are seen. IMPRESSION: Multifocal airspace opacities are seen which may represent pneumonia and/or aspiration. Follow-up to resolution is recommended. ACT 112: Negative or not required by law. Electronically signed by: Johnathon Humphrey M.D. 04/02/2022 2:20 PM
[2022-04-02 14:32] LABS: Alanine Aminotransferase 31 U/L (7-52); Albumin Level 2.2 gm/dl (3.4-5.0); Alkaline Phosphatase 111 U/L (34-104); Anion Gap 20 (3-11); Aspartate Aminotransferase 104 U/L (13-39); BUN Creatinine Ratio 34.3 (10-20); Blood Urea Nitrogen 127 mg/dl (6-23); Calcium 8.2 mg/dl (8.5-10.1); Carbon Dioxide 19 mmol/L (21-32); Chloride 102 mmol/L (98-107); Creatine Kinase 205 U/L (26-192); Est GFR (African American) 14.1 ml/min; Est GFR (Non-African American) 12.1 ml/min; Glucose 91 mg/dl (70-99(Fasting)); Lipase 115 U/L (11-82); Magnesium 3.1 mg/dl (1.7-2.4); Sodium 141 mmol/L (136-145); Total Protein 5.1 gm/dl (6.0-8.3)
--- NOTE | 2022-04-02 14:38 | CT Scan Report ---
CT OF THE ABDOMEN AND PELVIS WITHOUT CONTRAST CLINICAL HISTORY: Trauma. Altered mental status. COMPARISON STUDY: No previous studies for comparison. TECHNIQUE: Axial images of the abdomen and pelvis were obtained without IV contrast. Images were revi ewed in the axial, sagittal, and coronal planes. Automated exposure control was utilized for the elinor dy. A dose lowering technique was utilized adhering to the principles of ALARA. FINDINGS: Please note that the chest CT will be reported separately. Airspace opacities within the li ngula and left lower lobe are noted. No pneumatosis, free air or portal venous gas is present. The li derik is heterogeneous with multiple hypodense foci, including a 2.9 cm exophytic focus arising from th e lateral segment on axial image 134 of 491. Liver is suboptimally assessed on this unenhanced exam. Capsular retraction of the right hepatic lobe is noted. The liver is cirrhotic. Varices are noted. Si ze of the spleen is within normal limits. Moderate abdominal and pelvic ascites is present. There is anasarca. Gallstones within the gallbladder are noted. Unenhanced images of the adrenal glands, kidne ys and pancreas are unremarkable. There is no hydronephrosis. There are no urinary calculi. No enlarg ed abdominal or pelvic lymph nodes are noted. There is no evidence for a bowel obstruction. Sigmoid d iverticula cysts present without evidence for acute diverticulitis. Right colon wall thickening is pr esent. Small fluid containing right inguinal hernia is present. Baum is coiled within the bladder. N o acute traumatic findings are identified within the abdomen or pelvis on unenhanced exam. No acute f racture within the lumbar spine, pelvis or hips is identified. IMPRESSION: 1. No acute traumatic findings within the abdomen or pelvis on unenhanced exam. 2. Cirrhotic liver. Extensive hypodense foci throughout the liver with capsular retraction. Although the findings could represent hepatic steatosis, a neoplastic etiology such as metastatic disease or m ultifocal hepatocellular carcinoma/cholangiocarcinoma cannot be excluded. A liver protocol CT is estee mmended on nonemergent basis. 3. Sequela of portal hypertension including varices formation and moderate ascites. Anasarca. 4. Right colon wall thickening. This may be related to portal hypertension however a nonspecific coli tis could appear similar. No bowel obstruction. 5. Cholelithiasis. 6. Lingular and left lower lobe airspace opacity which could reflect pneumonia or alveolar pulmonary edema. ACT 112: Positive. There are findings on this exam that require communication between the performing entity and the patient following Patient Test Result Information Act ([place] Act 112) guidelines. Electronically signed by: Franklyn Finney M.D. 04/02/2022 2:36 PM
--- NOTE | 2022-04-02 14:47 | History & Physical Report ---
Date of Service April 02, 2022 Assessment & Plan (1) Severe sepsis with septic shock: (2) Leukocytosis: (3) Lactic acidosis: (4) UTI (urinary tract infection): (5) Encephalopathy acute: (6) Pneumonia: Plan: - Admit to ICU - Follow blood cultures, urine cultures - IV zosyn started, continue, check MRSA swab and consider starting vancomycin IV - WBC of 21K with left shift - CT chest concerning for a LLL pneumonia, monitor respiratory status closely, pt is not intubated on my exam and on RA with sats at 95-97% - may require intubation pending sedation if she is combative with waking - Urinary source appears infected, turbid, low urine output, maintain wang - Concern for liver involvement with INR of 1.9, slightly jaundiced skin, abdominal distension - Lactate 6.1 on admission, repeat pending - If awake, consider sputum culture - Urine drug tox is negative - Covid neative (7) Cirrhosis: Plan: - Noted on CT abdomen imaging studies, INR elevation, trend with am labs - Concern with GI bleed currently - total Bilirubin 3.0, direct pending - Likely will need GI consultation but at this time need to stabilize the patient secondary to above (8) GI bleed: Plan: - Hgb of 3.5 upon admission, currently getting total of 2 U PRBCs stat, trend H&H per ICU (9) Elevated troponin: Plan: - Trop 74 on admission -EKG reviewed, no previous to compare with : ST wave changed in inferior and anterolateral leads, concern for ischemia - likely that this is related to demand ischemia with severe hypovolemia with hgb of 3, gi bleed, and fluid shifting with pitting edema. - CK is 205, monitor for rhabdomyolysis with being found on the ground screaming per HPI (10) MICHA (acute kidney injury): Plan: - BUN of 127/ Cr. 3.7, unknown baseline, transfusion as above, recieved 1L NSS in the ER however hold further fluids. Trend labs. DVT ppx: teds, scds, no chemical anticoagulation in the setting of acute GI bleed Dispo: Prognosis is very poor, pt is from home, unable to reach next of kin as no known or available information of such. Remain in the ICU. (11) Acute blood loss anemia: History of Present Illness Chief Complaint: Unresponsive Primary Care Provider: NO PCP This is a 66 yo F without known past medical history, family history or surgical history who presents to the ER today due to severe septic shock and multi organ system involvement. Pt was brought to the hospital by EMS after landlord called them due to not seeing the patient for about 3 days and hearing her scream from within the apartment complex. When EMS arrived on the scene, she was found down on the floor, screaming, agitated and was combative. She was found to have fecal and urinary incontinence. Unknown how long the patient had been like this. Due to her combativeness state, she was administered Ativan 1 mg IV and has become calm and is sleeping now. Pt was not able to provider any history, ROS or had any complaints. History is obtained by nursing and ER personelle. Significant lab abnormalities are noted on initial blood work which includes: Hemoglobin of 3.5, hematocrit of 11.3, WBC 20.94 with a left shift of 15.38 , plt 228, sodium 141 and potassium 4.0 are within normal ranges. She has MICHA with BUN 127 and creatinine 3.7, lactic acid is 6.1, INR is 1.9, TBili 3.0, AST 104, ALT 31, alk phos 111, CK 205, troponin 74. BP is hypotensive at 90/60, MAP is 67 at bedside, and levophed IV has not yet been started. Tachycardia with HR in mid 90s. She is currently being transfused the first unit of PRBCs, with a second one ordered due to suspected GI bleed with obvious bloody stools and hgb 3.5. Liver cirrhosis seen on imaging could adds bleeding esophageal varicies to the differential diagnosis. Pt is not intubated, currently on RA with O2 sats at 95-97%. She has coarse breath sounds and imaging studies show LLL pneumonia. Urine is turbid, + nitrite, >30 WBC, 4+ bacteria and appears to be obviously infected, wang catheter in place with low urine outs since being in the ER. Allergies Allergy/AdvReac Type Severity Reaction Status Date / Time Sulfa (Sulfonamide Allergy Severe EYES AND Unverified 04/02/22 17:06 Antibiotics) THROAT SWELLING Home Medications Medication Instructions Recorded Confirmed Type fluticasone propionate 50 1 spray intranasal UD 04/02/22 04/02/22 History mcg/actuation nasal spray,suspension hydrochlorothiazide 12.5 mg tablet 12.5 mg PO DAILY 04/02/22 04/02/22 History loratadine 10 mg tablet 10 mg PO DAILY 04/02/22 04/02/22 History Past Med/Surg History Medical History Medical history unknown Unknown family medical history Surgical History (Updated 04/02/22 @ 19:04 by Celine Simons DO) Surgical history unknown Family History (Updated 04/02/22 @ 19:05 by Celine Simons DO) Other No known problems Social History Smoking Status: Unknown if ever smoked Preferred Language: Greenlandic Communication Ability: Unable Traffic Monitor Specialist Required: No Beliefs That Will Affect Care: None Current Living Situation: Alone Current Living Situation Comment: apartment Feels Safe at Home: Declines to Answer Assistive Devices: None Review of Systems Review of Systems: Unobtainable due to cognitive status Physical Exam Physical Exam: General: asleep, unawakeable, no apparent distress Head: Normocephalic, atraumatic ENT:+ exophthalmus with bulging eyes, PERRL, no pharyngeal exudate, mucous membranes dry Chest: Coarse breath sounds bilaterally with rales, on room air, o2 sats 95-97% Cardiac: Tachycardic, no murmur, no JVD, normal peripheral pulses, good capillary refill Abdominal: NABS x 4 quadrants, soft, +distended but soft, no fluid wave, nontender to palpation, no rebound or guarding Extremities: Normal inspection, 2+ peripheral pitting edema up to thighs bilaterally, calfs nontender to palpation Skin: slightly jaundiced, liver spots on chest wall Psych: unable to be assessed due to cognitive status Neuro: asleep, orientation not able to be assessed, strength nor sensory able to be assessed. Results & Data Results & Data ([facility]) Vital Signs (Past 12 Hours) Vital Signs Temp Pulse Pulse Resp BP BP Pulse Ox 04/02/22 14:40 35.5 C L 87 14 87/56 L 98 04/02/22 14:26 35.5 C L 87 14 78/56 L 98 04/02/22 14:20 35.5 C L 82 12 78/57 L 98 04/02/22 13:50 86 14 86/55 L 99 04/02/22 13:11 35.5 C L 86 16 78/56 L 99 O2 Del Method O2 Flow Rate 04/02/22 14:40 0 04/02/22 14:26 0 04/02/22 14:20 0 04/02/22 13:50 Room Air 04/02/22 13:11 Room Air Laboratory Results 04/02/22 13:15 Urine Culture - Pending Urine,Straight Cath 04/02/22 Unknown Aerobic Blood Culture - Pending Blood Anaerobic Blood Culture - Pending 04/02/22 Unknown Aerobic Blood Culture - Pending Blood Anaerobic Blood Culture - Pending 04/02/22 04/02/22 04/02/22 13:55 13:15 13:15 WBC RBC Hgb POC Hgb Hct POC Hct MCV MCH MCHC RDW Std Deviation RDW Coeff of Jaylin Plt Count MPV Immature Gran % (Auto) Neut % (Auto) Lymph % (Auto) [place] % (Auto) Eos % (Auto) Baso % (Auto) Neut # (Auto) Lymph # (Auto) [place] # (Auto) Eos # (Auto) Baso # (Auto) Immature Gran # (Auto) Absolute Nucleated RBC Nucleated RBC % (auto) Macrocytosis PT INR APTT PTT Ratio POC Sodium Sodium POC Potassium Potassium POC Chloride Chloride Carbon Dioxide POC Total CO2 Anion Gap POC Anion Gap POC BUN BUN Creatinine POC Creatinine Est Cr Clr Drug Dosing Est GFR ( Amer) Est GFR (Non-Af Amer) BUN/Creatinine Ratio Glucose POC Glucose (other) Lactate Calcium POC Ioniz Calcium Paty Magnesium Total Bilirubin Direct Bilirubin AST ALT Alkaline Phosphatase Ammonia Total Creatine Kinase Troponin I High Sens Total Protein Albumin Lipase Urine Color Dark Yellow Urine Appearance Turbid A Urine pH 5.0 Ur Specific [place] 1.018 Urine Protein 1+ H Urine Glucose (UA) Negative Urine Ketones Trace H Urine Blood Trace H Urine Nitrite Positive A Urine Bilirubin 1+ H Urine Urobilinogen Negative Ur Leukocyte Esterase 3+ H Urine WBC (Auto) >30 H Urine RBC (Auto) 0-4 U Hyaline Cast (Auto) 5-10 H U Epithel Cells (Auto) >30 H Urine Bacteria (Auto) 4+ H Urine Yeast Not Reportable Urine Opiates Screen Neg Ur Methadone, Qual Neg Urine Barbiturates Neg Ur Phencyclidine (PCP) Neg U Amphetamin/Meth Scrn Neg MDMA (Ecstasy) Screen Neg U Benzodiazepines Scrn Neg Ur Cocaine Metabolite Neg U Marijuana (THC) Screen Neg Ethyl Alcohol mg/dL SARS-CoV-2, RNA, NAAT NEGATIVE Blood Type Antibody Screen Crossmatch 04/02/22 04/02/22 04/02/22 13:10 13:07 13:02 WBC RBC Hgb POC Hgb TNP Hct POC Hct < 15 L* MCV MCH MCHC RDW Std Deviation RDW Coeff of Jaylin Plt Count MPV Immature Gran % (Auto) Neut % (Auto) Lymph % (Auto) [place] % (Auto) Eos % (Auto) Baso % (Auto) Neut # (Auto) Lymph # (Auto) [place] # (Auto) Eos # (Auto) Baso # (Auto) Immature Gran # (Auto) Absolute Nucleated RBC Nucleated RBC % (auto) Macrocytosis PT INR APTT PTT Ratio POC Sodium 139 Sodium POC Potassium 3.7 Potassium POC Chloride 102 Chloride Carbon Dioxide POC Total CO2 18 L Anion Gap POC Anion Gap 24.0 POC BUN 126 H* BUN Creatinine POC Creatinine 4.1 H Est Cr Clr Drug Dosing Est GFR ( Amer) Est GFR (Non-Af Amer) BUN/Creatinine Ratio Glucose POC Glucose (other) 92 Lactate 6.1 H* Calcium POC Ioniz Calcium Paty 1.02 L Magnesium Total Bilirubin Direct Bilirubin AST ALT Alkaline Phosphatase Ammonia Total Creatine Kinase Troponin I High Sens Total Protein Albumin Lipase Urine Color Urine Appearance Urine pH Ur Specific [place] Urine Protein Urine Glucose (UA) Urine Ketones Urine Blood Urine Nitrite Urine Bilirubin Urine Urobilinogen Ur Leukocyte Esterase Urine WBC (Auto) Urine RBC (Auto) U Hyaline Cast (Auto) U Epithel Cells (Auto) Urine Bacteria (Auto) Urine Yeast Urine Opiates Screen Ur Methadone, Qual Urine Barbiturates Ur Phencyclidine (PCP) U Amphetamin/Meth Scrn MDMA (Ecstasy) Screen U Benzodiazepines Scrn Ur Cocaine Metabolite U Marijuana (THC) Screen Ethyl Alcohol mg/dL < 10.0 SARS-CoV-2, RNA, NAAT Blood Type Antibody Screen Crossmatch 04/02/22 04/02/22 04/02/22 13:02 13:02 13:02 WBC 20.94 H RBC 0.96 L Hgb 3.5 L* POC Hgb Hct 11.3 L* POC Hct MCV 117.7 H MCH 36.5 H MCHC 31.0 L RDW Std Deviation 62.7 H RDW Coeff of Jaylin 15.1 H Plt Count 228 MPV 11.9 Immature Gran % (Auto) 0.8 Neut % (Auto) 73.5 Lymph % (Auto) 19.4 [place] % (Auto) 6.0 Eos % (Auto) 0.2 Baso % (Auto) 0.1 Neut # (Auto) 15.38 H Lymph # (Auto) 4.06 H [place] # (Auto) 1.26 H Eos # (Auto) 0.05 Baso # (Auto) 0.02 Immature Gran # (Auto) 0.17 H Absolute Nucleated RBC 0.03 H Nucleated RBC % (auto) 0.1 Macrocytosis Present PT INR APTT PTT Ratio POC Sodium Sodium 141 POC Potassium Potassium 4.0 POC Chloride Chloride 102 Carbon Dioxide 19 L POC Total CO2 Anion Gap 20 H POC Anion Gap POC BUN BUN 127 H Creatinine 3.70 H POC Creatinine Est Cr Clr Drug Dosing Not Reportable Est GFR ( Amer) 14.1 Est GFR (Non-Af Amer) 12.1 BUN/Creatinine Ratio 34.3 H Glucose 91 POC Glucose (other) Lactate Calcium 8.2 L POC Ioniz Calcium Paty Magnesium 3.1 H Total Bilirubin 3.0 H Direct Bilirubin TNP AST 104 H ALT 31 Alkaline Phosphatase 111 H Ammonia TNP Total Creatine Kinase 205 H Troponin I High Sens 74.0 H* Total Protein 5.1 L Albumin 2.2 L Lipase 115 H Urine Color Urine Appearance Urine pH Ur Specific [place] Urine Protein Urine Glucose (UA) Urine Ketones Urine Blood Urine Nitrite Urine Bilirubin Urine Urobilinogen Ur Leukocyte Esterase Urine WBC (Auto) Urine RBC (Auto) U Hyaline Cast (Auto) U Epithel Cells (Auto) Urine Bacteria (Auto) Urine Yeast Urine Opiates Screen Ur Methadone, Qual Urine Barbiturates Ur Phencyclidine (PCP) U Amphetamin/Meth Scrn MDMA (Ecstasy) Screen U Benzodiazepines Scrn Ur Cocaine Metabolite U Marijuana (THC) Screen Ethyl Alcohol mg/dL SARS-CoV-2, RNA, NAAT Blood Type Antibody Screen Crossmatch 04/02/22 04/02/22 13:02 13:02 WBC RBC Hgb POC Hgb Hct POC Hct MCV MCH MCHC RDW Std Deviation RDW Coeff of Jaylin Plt Count MPV Immature Gran % (Auto) Neut % (Auto) Lymph % (Auto) [place] % (Auto) Eos % (Auto) Baso % (Auto) Neut # (Auto) Lymph # (Auto) [place] # (Auto) Eos # (Auto) Baso # (Auto) Immature Gran # (Auto) Absolute Nucleated RBC Nucleated RBC % (auto) Macrocytosis PT 19.9 H INR 1.9 H APTT 27.0 PTT Ratio 1.0 POC Sodium Sodium POC Potassium Potassium POC Chloride Chloride Carbon Dioxide POC Total CO2 Anion Gap POC Anion Gap POC BUN BUN Creatinine POC Creatinine Est Cr Clr Drug Dosing Est GFR ( Amer) Est GFR (Non-Af Amer) BUN/Creatinine Ratio Glucose POC Glucose (other) Lactate Calcium POC Ioniz Calcium Paty Magnesium Total Bilirubin Direct Bilirubin AST ALT Alkaline Phosphatase Ammonia Total Creatine Kinase Troponin I High Sens Total Protein Albumin Lipase Urine Color Urine Appearance Urine pH Ur Specific [place] Urine Protein Urine Glucose (UA) Urine Ketones Urine Blood Urine Nitrite Urine Bilirubin Urine Urobilinogen Ur Leukocyte Esterase Urine WBC (Auto) Urine RBC (Auto) U Hyaline Cast (Auto) U Epithel Cells (Auto) Urine Bacteria (Auto) Urine Yeast Urine Opiates Screen Ur Methadone, Qual Urine Barbiturates Ur Phencyclidine (PCP) U Amphetamin/Meth Scrn MDMA (Ecstasy) Screen U Benzodiazepines Scrn Ur Cocaine Metabolite U Marijuana (THC) Screen Ethyl Alcohol mg/dL SARS-CoV-2, RNA, NAAT Blood Type AB Negative Antibody Screen NEGATIVE Crossmatch See Detail Diagnostic Findings Head CT 04/02/22 12:57 CT head/brain wo con CLINICAL HISTORY: 66 years-old Female with altered mental status. Acutely altered mental status TECHNIQUE: Multiple axial CT images of the head were obtained without contrast. A dose lowering technique was utilized adhering to the principles of ALARA. CT DOSE: 1782.68 mGy.cm COMPARISON: CT cervical spine of same day FINDINGS: No acute intracranial hemorrhage, midline shift, intracranial mass, hydrocephalus, territorial ischemia or abnormal extra-axial collection.. Mild involutional changes. White matter hypodensities suggestive of chronic microvascular ischemic disease. Study is mildly motion degraded. The calvarium is intact. Trace mastoid effusions. Paranasal sinuses are clear. Prior bilateral lens repair. Unremarkable soft tissues. IMPRESSION: No acute intracranial abnormality. ACT 112: Negative or not required by law. The above report was generated using voice recognition software. It may contain grammatical, syntax or spelling errors. Electronically signed by: Olayinka Ramos M.D. 04/02/2022 2:00 PM Chest X-Ray 04/02/22 12:58 SUPINE PORTABLE AP CHEST RADIOGRAPH CLINICAL HISTORY: Altered mental status. COMPARISON STUDY: No previous studies for comparison. FINDINGS: Lung volumes are mildly diminished. No pneumothorax is identified on supine exam. No pleural effusion is identified. Cardiomediastinal silhouette is within normal limits given supine projection. Left basilar airspace opacity is present. There may be mild right apical opacity. Interstitial prominence is probably technical. IMPRESSION: Left basilar opacity which could reflect pneumonia or atelectasis. Possible right apical opacity. Findings can be assessed on chest CT which has been ordered. ACT 112: Negative or not required by law. Electronically signed by: Franklyn Finney M.D. 04/02/2022 1:34 PM Abdomen/Pelvis CT 04/02/22 13:17 CT OF THE ABDOMEN AND PELVIS WITHOUT CONTRAST CLINICAL HISTORY: Trauma. Altered mental status. COMPARISON STUDY: No previous studies for comparison. TECHNIQUE: Axial images of the abdomen and pelvis were obtained without IV contrast. Images were reviewed in the axial, sagittal, and coronal planes. Automated exposure control was utilized for the study. A dose lowering technique was utilized adhering to the principles of ALARA. FINDINGS: Please note that the chest CT will be reported separately. Airspace opacities within the lingula and left lower lobe are noted. No pneumatosis, free air or portal venous gas is present. The liver is heterogeneous with multiple hypodense foci, including a 2.9 cm exophytic focus arising from the lateral segment on axial image 134 of 491. Liver is suboptimally assessed on this unenhanced exam. Capsular retraction of the right hepatic lobe is noted. The liver is cirrhotic. Varices are noted. Size of the spleen is within normal limits. Moderate abdominal and pelvic ascites is present. There is anasarca. Gallstones within the gallbladder are noted. Unenhanced images of the adrenal glands, kidneys and pancreas are unremarkable. There is no hydronephrosis. There are no urinary calculi. No enlarged abdominal or pelvic lymph nodes are noted. There is no evidence for a bowel obstruction. Sigmoid diverticula cysts present without evidence for acute diverticulitis. Right colon wall thickening is present. Small fluid containing right inguinal hernia is present. Wang is coiled within the bladder. No acute traumatic findings are identified within the abdomen or pelvis on unenhanced exam. No acute fracture within the lumbar spine, pelvis or hips is identified. IMPRESSION: 1. No acute traumatic findings within the abdomen or pelvis on unenhanced exam. 2. Cirrhotic liver. Extensive hypodense foci throughout the liver with capsular retraction. Although the findings could represent hepatic steatosis, a neoplastic etiology such as metastatic disease or multifocal hepatocellular carcinoma/cholangiocarcinoma cannot be excluded. A liver protocol CT is recommended on nonemergent basis. 3. Sequela of portal hypertension including varices formation and moderate ascites. Anasarca. 4. Right colon wall thickening. This may be related to portal hypertension however a nonspecific colitis could appear similar. No bowel obstruction. 5. Cholelithiasis. 6. Lingular and left lower lobe airspace opacity which could reflect pneumonia or alveolar pulmonary edema. ACT 112: Positive. There are findings on this exam that require communication between the performing entity and the patient following Patient Test Result Information Act ([place] Act 112) guidelines. Electronically signed by: Franklyn Finney M.D. 04/02/2022 2:[address] 04/02/22 13:17 CT SCAN OF THE CERVICAL SPINE CLINICAL HISTORY: Trauma. COMPARISON STUDY: MRI of the cervical spine dated 10/03/2006. TECHNIQUE: CT scan of the cervical spine is performed from the skull base to the upper thoracic spine. Images are reviewed in the axial, sagittal, and coronal planes. IV contrast was not administered for this examination. A dose lowering technique was utilized adhering to the principles of ALARA. FINDINGS: Skeletal structures: The skeletal structures are well mineralized. There is no evidence of fracture or subluxation involving the cervical spine. Vertebral body height and alignment are maintained. There is straightening of the cervical lordosis with reversal centered at C5. Anterior osteophytes are noted in the lower cervical region. The odontoid process and lateral masses are intact. The atlantoaxial articulation is preserved noting mild productive degenerative change. The spinous processes appear intact. There is multilevel facet arthropathy. Intervertebral discs: There is moderate disc space narrowing at C6-C7. Only mild disc space narrowing is seen at the remaining cervical levels. Central canal: Grossly patent. Soft tissues: The prevertebral and paraspinous soft tissues are within normal limits. Mild soft tissue edema is seen in the upper chest wall. Calvarium: The visualized calvarium at the skull base appears intact. Brain parenchyma: Partially visualized brain parenchyma at the skull base is within normal limits. Sinuses and mastoids: The visualized paranasal sinuses are clear. There is a moderate left mastoid effusion. Only trace mastoid effusion is seen on the left. Lung apices: Airspace consolidation is seen at the right apex. IMPRESSION: 1. There is no evidence of fracture or subluxation involving the cervical spine. 2. Osteopenia and mild spondylotic changes above. 3. Airspace consolidation is seen at the right apex. 4. Nonspecific soft tissue edema is noted in the upper chest wall. ACT 112: Negative or not required by law. Electronically signed by: Omero Stanley M.D. 04/02/2022 1:[address] 04/02/22 13:17 CT chest diagnostic wo con CLINICAL HISTORY: trauma, ams TECHNIQUE: Multidetector row helical CT of the chest was performed. Coronal and sagittal reformations were obtained. Automated dose lowering techniques and/or adjustment according to patient size were utilized for this exam. Comparison: Comparison is made to chest radiograph 04/02/2022 FINDINGS: Exam is limited by patient motion. Lungs and pleura: Consolidative opacity with cysts noted most prominently in the right upper lobe. Groundglass and consolidation is also noted throughout, most prominently in the lingula and left lower lobe. Heart and pericardium: Cardiomegaly is seen with biatrial enlargement. Vessels: Mild atherosclerotic changes in the aorta and coronary arteries. The pulmonary trunk measures 32 mm in diameter. Mediastinum and lopez: Subcentimeter lymph nodes are seen. Chest wall and lower neck: Subcentimeter axillary lymph nodes noted. Abdomen: For findings below the diaphragm, please refer to CT of the abdomen dated the same. Bones: Degenerative changes of the thoracic spine. Old healed rib fractures are seen. IMPRESSION: Multifocal airspace opacities are seen which may represent pneumonia and/or aspiration. Follow-up to resolution is recommended. ACT 112: Negative or not required by law. Electronically signed by: Johnathon Humphrey M.D. 04/02/2022 2:20 PM ECG Additional Comments: 02-APR-2022 13:05:04 [facility]-EDSTAT ROUTINE RETRIEVAL Sinus rhythm with Premature ventricular complexes or Fusion complexes Low voltage QRS ST & T wave abnormality, consider inferior ischemia ST & T wave abnormality, consider anterolateral ischemia Abnormal ECG No previous ECGs available 25mm/[id number] HDCID: 12Unconfirmed Vent. rate 91 BPM WA interval 126 ms QRS duration 70 ms QT/QTc 358/440 ms Code Status & VTE Plan VTE Prophylaxis Plan VTE Prophylaxis will be ordered: Yes Supervising Physician Co-Signing Physician Notes The patient is a 66-year-old female who was found encephalopathic in her home by her landlord. On arrival to the ER she was combative and given a small amount of Ativan. She is currently obtunded and cannot give a history. There are no records that are available at this time for historical review. She is being managed for severe sepsis with septic shock and has a lactic acidosis with a urinary tract infection and a pneumonia. She has evidence of cirrhosis on CT imaging and has jaundice on exam. She has an elevated troponin and a mildly elevated CK of 205. She also has an acute kidney injury. She is currently maintaining oxygen saturations on room air. Review of systems cannot be obtained secondary to obtunded state. My physical exam reflects that above. Agree with plan to send her to the ICU for treatment of acute metabolic encephalopathy in the setting of UTI and multilobar pneumonia. Hypotension is present with strong consideration for Levophed being given in the ER but not yet started as MAP is holding just above 65. Acute kidney injury and lactic acidosis are being treated with fluid resuscitation. Severe acute blood loss anemia with heme positive stool is being treated with administration of blood products. She will continue her care in the ICU at this time. Discussed care plan with the broiler chef or cook. DO Ronak
[2022-04-02 15:16] LABS: Amphetamines+Metham, Urine Neg (Neg); Barbiturates, Urine Neg (Neg); Benzodiazepine, Urine Neg (Neg); Cocaine, Urine Neg (Neg); MDMA (Ecstacy), Urine Neg (Neg); Methadone, Urine Neg (Neg); Opiate, Urine Neg (Neg); Phencyclidine, Urine Neg (Neg)
[2022-04-02] MEDS ORDERED: VANCOMYCIN CONSULT ACTIVE PRN (16:18)
--- NOTE | 2022-04-02 16:21 | XRay Report ---
XR chest 1V portable HISTORY: 66 years-old Female line placement status post placement of a right IJ central venous ro ter COMPARISON: Chest CT of same day TECHNIQUE: Supine AP view of the chest FINDINGS: Status post placement of a right IJ dual-lumen hemodialysis catheter distal tip in the correct locati on of the upper SVC. No postprocedural pneumothorax identified. The cardiac silhouette is enlarged. M ixed interstitial and alveolar opacities of the lungs redemonstrated. The bones appear grossly intact . IMPRESSION: 1. Status post placement of a dual lumen right IJ hemodialysis catheter with distal tip in the expect ed location of the upper SVC. 2. No postprocedural pneumothorax identified. 3. Mixed interstitial and alveolar opacities of the lungs are redemonstrated, better characterized on the chest CT of same day. ACT 112: Negative or not required by law. The above report was generated using voice recognition software. It may contain grammatical, syntax o r spelling errors. Electronically signed by: Olayinka Ramos M.D. 04/02/2022 4:20 PM
[2022-04-02] MEDS ORDERED: VANCOMYCIN HCL 1,000 MG in SODIUM CHLORIDE 0.9% 500 ML IV SCH (16:30)
[2022-04-02] MEDS: Patient's HEIGHT &/or WEIGHT Needed SCH ×2 (16:32→16:33)
--- NOTE | 2022-04-02 16:50 | Procedure Note ---
Procedure Note Date of Service April 02, 2022 Note Procedure date: Noted above Procedure: Central venous access Pre-procedure indication: Need for vasoactive medication administration Post-procedure Diagnosis: same as above Prior to Procedure: Informed Consent: Emergent consent implied. Attending Staff: Ambrocio Sylvester DO Resident/APC: Yolette Skin Prep: Chlorhexidine Anesthesia: 4 mL 1% lidocaine without epinephrine The identity of the patient was confirmed and a bedside time out was performed. Description of Procedure: After sterile prep and sterile drape utilizing standard sterile technique the superficial skin of the right subclavian area was anesthetized. The target vessel was identified and entered with an 18-gauge needle. Dark venous blood return was noted. A guidewire was inserted through the needle and into the vessel. The needle was withdrawn and a skin nancy was made. A tissue dilator was advanced via Seldinger technique and removed. A triple lumen catheter was inserted via Seldinger technique and the guidewire removed. All ports ayush and flushed easily. A Biopatch was placed, and the catheter was secured via silk suture. A sterile dressing was then applied. Complications: None Estimated blood loss: Trace Patient tolerated the procedure well. Coding CPT Codes Tubes, Drains, and Vasc Access - Tubes, Drains, and Vasc Access: [id number] Insertion Of Non-tunneled Catheter Age 6 Yrs> ([id number]) [facility] Procedure Codes (Charges) Tubes, Drains, and Vasc Access Procedure 1: Tubes, Drains, and Vasc Access: [id number] Insertion Of Non-tunneled Catheter Age 6 Yrs>
--- NOTE | 2022-04-02 16:51 | Critical Care Consultation ---
Date of Consultation April 02, 2022 Assessment & Plan (1) Encephalopathy acute: Reason Critically Ill: 66-year-old female with profound anemia acute kidney injury and acute encephalopathy PLAN: Neuro: Acute encephalopathy -Repeat ammonia, initial testing unable to be performed -CT head reviewed, may consider MRI -We will consider EEG if no significant improvement Resp: Multilobar pneumonia -Vancomycin and Zosyn CV: Hypotension -Echocardiogram Fluids/Renal: Acute kidney injury -Every 6 hour BMP -Nephrology consult for possible dialysis -CPK not profoundly elevated Lactic acid acidosis -500 mg thiamine 3 times daily x2 days ID: Sepsis, pulmonary versus urinary source -LP contraindicated secondary to supratherapeutic INR and urinary findings -Zosyn and vancomycin GI/Nutrition: Cirrhosis -Acute hepatitis panel Heme: Profound anemia -Transfuse 3 units packed red blood cells -Every 6 hour HH Supratherapeutic INR -5 mg IV vitamin K DVT prophylaxis: Chemical prophylaxis contraindicated Endocrine: ICU hyperglycemia protocol Check TSH and random cortisol Vascular access: Right IJ triple-lumen catheter Code Status: Full code -Attempt to find surrogate decision makers Disposition: ICU I have personally spent 55 minutes of critical care time in the direct management of this patient. This is a life/limb threatening event. This includes time spent evaluating patient, direct bedside care, chart review, placing orders, interpretation of diagnostic studies, discussion with consultants, patient, and/or family members regarding treatment decisions, as well as other required patient management activities. This time is exclusive of all separately billable procedures, and teaching time and separate from and in addition to any other critical care service time. (2) GI bleed: (3) MICHA (acute kidney injury): (4) UTI (urinary tract infection): (5) Cirrhosis: (6) Lactic acidosis: (7) Severe sepsis with septic shock: History of Present Illness Reason for Consultation: Multisystem organ failure Requesting Physician: Addy Attending Physician: Ronak History of Present Illness History is obtained solely from prior records as patient has acute encephalopathy unable to participate in history. Minimal prior records available. Patient is a 66-year-old female who was brought in by EMS after a reported health check. In the emergency department patient was mildly combative not redirectable was given 1 mg of Ativan. This allowed staff to obtain labs and start evaluation. She was found to have an acute kidney injury, profoundly anemic and blood transfusion was started, patient exhibited signs consistent with bilateral pneumonia, concern for sepsis. Minimal records, she appears to have radiographic findings consistent with cirrhosis. She is being admitted to the ICU for acute kidney injury with symptomatic anemia and acute encephalopathy. Allergies Allergy/AdvReac Type Severity Reaction Status Date / Time Sulfa (Sulfonamide Allergy Severe EYES AND Unverified 07/29/13 11:34 Antibiotics) THROAT SWELLING Home Medications Medication Instructions Recorded Confirmed Type fluticasone propionate 50 1 spray intranasal UD 04/02/22 04/02/22 History mcg/actuation nasal spray,suspension hydrochlorothiazide 12.5 mg tablet 12.5 mg PO DAILY 04/02/22 04/02/22 History loratadine 10 mg tablet 10 mg PO DAILY 04/02/22 04/02/22 History Patient History Social History Smoking Status: Unknown if ever smoked Review of Systems Review of Systems: Unobtainable due to acute encephalopathy Physical Exam Physical Exam: General: Glascow Coma Scale: Eyes: 2, Verbal 2, Motor 5, Total 9 Skin: Warm, pale Head: Atraumatic Ears, nose, mouth and throat: airway patent Cardiovascular: Increased capillary refill Respiratory: no respiratory distress Gastrointestinal: Non distended, nondistended, nontender fanatic Musculoskeletal: No deformity Results & Data Results & Data ([facility]) Vital Signs (Past 12 Hours) Vital Signs Temp Pulse Pulse Resp BP BP Pulse Ox 04/02/22 16:48 90 18 79/39 L 97 04/02/22 16:36 36.1 C L 90 16 84/44 L 98 04/02/22 16:34 91 H 16 84/44 L 98 04/02/22 16:00 36.1 C L 90 22 98 04/02/22 16:15 92 H 23 98 04/02/22 16:15 91/54 L 04/02/22 16:00 90 33 H 98 04/02/22 16:00 75/46 L 04/02/22 15:45 95 H 23 98 04/02/22 15:31 84/48 L 04/02/22 15:31 89 16 99 04/02/22 15:30 90 18 98 04/02/22 15:30 77/44 L 04/02/22 15:16 92 H 18 98 04/02/22 15:16 98/51 L 04/02/22 15:15 91 H 18 97 04/02/22 15:15 75/56 L 04/02/22 15:00 90 17 98 04/02/22 15:00 92/60 L 04/02/22 14:46 88 24 99 04/02/22 14:46 85/58 L 04/02/22 14:45 88 16 98 04/02/22 14:45 74/57 L 04/02/22 14:30 86 15 99 04/02/22 14:30 87/56 L 04/02/22 14:15 82 16 98 04/02/22 14:15 78/57 L 04/02/22 14:00 86 16 99 04/02/22 14:00 75/55 L 04/02/22 13:45 88 18 98 04/02/22 13:45 86/55 L 04/02/22 13:41 88 7 L 04/02/22 13:17 81/51 L 04/02/22 13:17 86 20 100 04/02/22 13:15 85 16 100 04/02/22 13:01 90 20 100 04/02/22 13:01 94/62 L 04/02/22 16:16 36.1 C L 90 20 91/54 L 98 04/02/22 15:30 89 24 84/48 L 98 04/02/22 15:15 92 H 20 98/51 L 98 04/02/22 15:09 91 H 22 92/60 L 97 04/02/22 15:01 35.5 C L 87 16 92/60 L 98 04/02/22 14:55 35.6 C L 89 14 85/58 L 98 04/02/22 14:40 35.5 C L 87 14 87/56 L 98 04/02/22 14:26 35.5 C L 87 14 78/56 L 98 04/02/22 14:20 35.5 C L 82 12 78/57 L 98 04/02/22 13:50 86 14 86/55 L 99 04/02/22 13:11 35.5 C L 86 16 78/56 L 99 O2 Del Method O2 Flow Rate 04/02/22 16:48 Room Air 04/02/22 16:36 Room Air 04/02/22 16:34 Room Air 04/02/22 16:00 10/24/22 16:15 04/02/22 16:15 04/02/22 16:00 04/02/22 16:00 04/02/22 15:45 04/02/22 15:31 04/02/22 15:31 04/02/22 15:30 04/02/22 15:30 04/02/22 15:16 04/02/22 15:16 04/02/22 15:15 04/02/22 15:15 04/02/22 15:00 04/02/22 15:00 04/02/22 14:46 04/02/22 14:46 04/02/22 14:45 04/02/22 14:45 04/02/22 14:30 04/02/22 14:30 04/02/22 14:15 04/02/22 14:15 04/02/22 14:00 04/02/22 14:00 04/02/22 13:45 04/02/22 13:45 04/02/22 13:41 04/02/22 13:17 04/02/22 13:17 04/02/22 13:15 04/02/22 13:01 04/02/22 13:01 04/02/22 16:16 Room Air 04/02/22 15:30 04/02/22 15:15 04/02/22 15:09 Room Air 04/02/22 15:01 0 04/02/22 14:55 0 04/02/22 14:40 0 04/02/22 14:26 0 04/02/22 14:20 0 04/02/22 13:50 Room Air 04/02/22 13:11 Room Air Critical Care Results & Data Vital Signs (Past 12 Hours) Vital Signs Temp Pulse Pulse Resp BP BP Pulse Ox 04/02/22 16:48 90 18 79/39 L 97 04/02/22 16:36 36.1 C L 90 16 84/44 L 98 04/02/22 16:34 91 H 16 84/44 L 98 04/02/22 16:00 36.1 C L 90 22 98 04/02/22 16:15 92 H 23 98 04/02/22 16:15 91/54 L 04/02/22 16:00 90 33 H 98 04/02/22 16:00 75/46 L 04/02/22 15:45 95 H 23 98 04/02/22 15:31 84/48 L 04/02/22 15:31 89 16 99 04/02/22 15:30 90 18 98 04/02/22 15:30 77/44 L 04/02/22 15:16 92 H 18 98 04/02/22 15:16 98/51 L 04/02/22 15:15 91 H 18 97 04/02/22 15:15 75/56 L 04/02/22 15:00 90 17 98 04/02/22 15:00 92/60 L 04/02/22 14:46 88 24 99 04/02/22 14:46 85/58 L 04/02/22 14:45 88 16 98 04/02/22 14:45 74/57 L 04/02/22 14:30 86 15 99 04/02/22 14:30 87/56 L 04/02/22 14:15 82 16 98 04/02/22 14:15 78/57 L 04/02/22 14:00 86 16 99 04/02/22 14:00 75/55 L 04/02/22 13:45 88 18 98 04/02/22 13:45 86/55 L 04/02/22 13:41 88 7 L 04/02/22 13:17 81/51 L 04/02/22 13:17 86 20 100 04/02/22 13:15 85 16 100 04/02/22 13:01 90 20 100 04/02/22 13:01 94/62 L 04/02/22 16:16 36.1 C L 90 20 91/54 L 98 04/02/22 15:30 89 24 84/48 L 98 04/02/22 15:15 92 H 20 98/51 L 98 04/02/22 15:09 91 H 22 92/60 L 97 04/02/22 15:01 35.5 C L 87 16 92/60 L 98 04/02/22 14:55 35.6 C L 89 14 85/58 L 98 04/02/22 14:40 35.5 C L 87 14 87/56 L 98 04/02/22 14:26 35.5 C L 87 14 78/56 L 98 04/02/22 14:20 35.5 C L 82 12 78/57 L 98 04/02/22 13:50 86 14 86/55 L 99 04/02/22 13:11 35.5 C L 86 16 78/56 L 99 O2 Del Method O2 Flow Rate 04/02/22 16:48 Room Air 04/02/22 16:36 Room Air 04/02/22 16:34 Room Air 04/02/22 16:00 04/02/22 16:15 04/02/22 16:15 04/02/22 16:00 04/02/22 16:00 04/02/22 15:45 04/02/22 15:31 04/02/22 15:31 04/02/22 15:30 04/02/22 15:30 04/02/22 15:16 04/02/22 15:16 04/02/22 15:15 04/02/22 15:15 04/02/22 15:00 04/02/22 15:00 04/02/22 14:46 04/02/22 14:46 04/02/22 14:45 04/02/22 14:45 04/02/22 14:30 04/02/22 14:30 04/02/22 14:15 04/02/22 14:15 04/02/22 14:00 04/02/22 14:00 04/02/22 13:45 04/02/22 13:45 04/02/22 13:41 04/02/22 13:17 04/02/22 13:17 04/02/22 13:15 04/02/22 13:01 04/02/22 13:01 04/02/22 16:16 Room Air 04/02/22 15:30 04/02/22 15:15 04/02/22 15:09 Room Air 04/02/22 15:01 0 04/02/22 14:55 0 04/02/22 14:40 0 04/02/22 14:26 0 04/02/22 14:20 0 04/02/22 13:50 Room Air 04/02/22 13:11 Room Air Lab & Micro Results (Past 24 Hours) RBC 0.96 M/uL (3.93-5.22) L 04/02/22 WBC 20.94 K/ul (4.8-10.8) H 04/02/22 Hgb 3.5 g/dl (12.0-16.0) L* 04/02/22 Hct 11.3 % (34.1-44.9) L* 04/02/22 MCV 117.7 fL (80.0-100.0) H 04/02/22 MCH 36.5 pg (25.0-34.0) H 04/02/22 MCHC 31.0 g/dL (32.0-36.0) L 04/02/22 RDW Standard Deviation 62.7 fL (36.4-46.3) H 04/02/22 RDW Coefficient of Variation 15.1 % (11.5-14.5) H 04/02/22 Plt Count 228 K/uL (130-400) 04/02/22 MPV 11.9 fL (9.4-12.3) 04/02/22 Nucleated Red Blood Cells % (auto) 0.1 % 04/02 Nucleated RBC Absolute Count (auto) 0.03 K/uL (0-0) H 03/11 09/29 Neutrophils (%) (Auto) 73.5 % 04/02/22 Lymphocytes (%) (Auto) 19.4 % 04/02/22 Monocytes # (Auto) 1.26 K/uL (0.24-0.82) H 04/02/22 Eosinophils # (Auto) 0.05 K/uL (0-0.50) 04/02/22 Immature Granulocyte % (Auto) 0.8 % 04/02/22 Neutrophils # (Auto) 15.38 K/uL (1.4-6.5) H 04/02/22 Lymphocytes # (Auto) 4.06 K/uL (1.2-3.4) H 04/02/22 Monocytes # (Auto) 1.26 K/uL (0.24-0.82) H 04/02/22 Eosinophils # (Auto) 0.05 K/uL (0-0.50) 04/02/22 Basophils # (Auto) 0.02 K/uL (0-0.2) 04/02/22 Immature Granulocyte # (Auto) 0.17 K/uL (0.00-0.02) H 04/02 Macrocytosis Present 04/02/22 Na 141 mmol/L (136-145) 04/02/22 K 4.0 mmol/L (3.5-5.1) 04/02/22 Cl 102 mmol/L (98-107) 04/02/22 CO2 19 mmol/L (21-32) L 04/02/22 Anion Gap 20 (3-11) H 04/02/22 BUN 127 mg/dl (6-23) H 04/02/22 Creatinine 3.70 mg/dl (0.6-1.2) H 04/02/22 Estimated GFR ( Amer) 14.1 ml/min 04/02/22 Estimated GFR (Non-Af Amer) 12.1 ml/min 04/02/22 BUN/Creatinine Ratio 34.3 (10-20) H 04/02/22 Glu 91 mg/dl (70-99(Fasting)) 04/02/22 Ca 8.2 mg/dl (8.5-10.1) L 04/02/22 Total Bilirubin 3.0 mg/dl (0.2-1.0) H 04/02/22 Direct Bilirubin 1.3 mg/dl (0-0.2) H 04/02/22 AST 104 U/L (13-39) H 04/02/22 ALT 31 U/L (7-52) 04/02/22 Alkaline Phosphatase 111 U/L (34-104) H 04/02/22 TP 5.1 gm/dl (6.0-8.3) L 04/02/22 Albumin 2.2 gm/dl (3.4-5.0) L 04/02/22 Mg 3.1 mg/dl (1.7-2.4) H 04/02/22 13:02 Calcium Level 8.2 mg/dl (8.5-10.1) L 04/02/22 13:02 Prothromb Time International Ratio 1.9 (0.9-1.1) H 04/02/22 13 :02 Diagnostic Findings (Past 24 Hours) Head CT 04/02/22 12:57 CT head/brain wo con CLINICAL HISTORY: 66 years-old Female with altered mental status. Acutely altered mental status TECHNIQUE: Multiple axial CT images of the head were obtained without contrast. A dose lowering technique was utilized adhering to the principles of ALARA. CT DOSE: 1782.68 mGy.cm COMPARISON: CT cervical spine of same day FINDINGS: No acute intracranial hemorrhage, midline shift, intracranial mass, hydrocephalus, territorial ischemia or abnormal extra-axial collection.. Mild involutional changes. White matter hypodensities suggestive of chronic microvas cular ischemic disease. Study is mildly motion degraded. The calvarium is intact. Trace mastoid effusions. Paranasal sinuses are clear. Prior bilateral lens repair. Unremarkable soft tissues. IMPRESSION: No acute intracranial abnormality. ACT 112: Negative or not required by law. The above report was generated using voice recognition software. It may contain grammatical, syntax or spelling errors. Electronically signed by: Olayinka Ramos M.D. 04/02/2022 2:00 PM Chest X-Ray 04/02/22 12:58 SUPINE PORTABLE AP CHEST RADIOGRAPH CLINICAL HISTORY: Altered mental status. COMPARISON STUDY: No previous studies for comparison. FINDINGS: Lung volumes are mildly diminished. No pneumothorax is identified on supine exam. No pleural effusion is identified. Cardiomediastinal silhouette is within normal limits given supine projection. Left basilar airspace opacity is p resent. There may be mild right apical opacity. Interstitial prominence is probably technical. IMPRESSION: Left basilar opacity which could reflect pneumonia or atelectasis. Possible right apical opacity. Findings can be assessed on chest CT which has been ordered. ACT 112: Negative or not required by law. Electronically signed by: Franklyn Finney M.D. 04/02/2022 1:34 PM Abdomen/Pelvis CT 04/02/22 13:17 CT OF THE ABDOMEN AND PELVIS WITHOUT CONTRAST CLINICAL HISTORY: Trauma. Altered mental status. COMPARISON STUDY: No previous studies for comparison. TECHNIQUE: Axial images of the abdomen and pelvis were obtained without IV contrast. Images were reviewed in the axial, sagittal, and coronal planes. Automated exposure control was utilized for the study. A dose lowering technique was utilized adhering to the principles of ALARA. FINDINGS: Please note that the chest CT will be reported separately. Airspace opacities within the lingula and left lower lobe are noted. No pneumatosis, free air or portal venous gas is present. The liver is heterogeneous with multiple hypodense foci, including a 2.9 cm exophytic focus arising from the lateral segment on axial image 134 of 491. Liver is suboptimally assessed on this unenhanced exam. Capsular retraction of the right hepatic lobe is noted. The liver is cirrhotic. Varices are noted. Size of the spleen is within normal limits. Moderate abdominal and pelvic ascites is present. There is anasarca. Gallstones within the gallbladder are noted. Unenhanced images of the adrenal glands, kidneys and pancreas are unremarkable. There is no hydronephrosis. There are no urinary calculi. No enlarged abdominal or pelvic lymph nodes are noted. There is no evidence for a bowel obstruction. Sigmoid diverticula cysts present without evidence for acute diverticulitis. Right colon wall thickening is present. Small fluid containing right inguinal hernia is present. Baum is coiled within the bladder. No acute traumatic findings are identified within the abdomen or pelvis on unenhanced exam. No acute fracture within the lumbar spine, pelvis or hips is identified. IMPRESSION: 1. No acute traumatic findings within the abdomen or pelvis on unenhanced exam. 2. Cirrhotic liver. Extensive hypodense foci throughout the liver with capsular retraction. Although the findings could represent hepatic steatosis, a neoplastic etiology such as metastatic disease or multifocal hepatocellular carcinoma/cholangiocarcinoma cannot be excluded. A liver protocol CT is recommended on nonemergent basis. 3. Sequela of portal hypertension including varices formation and moderate ascites. Anasarca. 4. Right colon wall thickening. This may be related to portal hypertension however a nonspecific colitis could appear similar. No bowel obstruction. 5. Cholelithiasis. 6. Lingular and left lower lobe airspace opacity which could reflect pneumonia or alveolar pulmonary edema. ACT 112: Positive. There are findings on this exam that require communication between the performing entity and the patient following Patient Test Result Information Act ([place] Act 112) guidelines. Electronically signed by: Franklyn Finney M.D. 04/02/2022 2:[address] 04/02/22 13:17 CT SCAN OF THE CERVICAL SPINE CLINICAL HISTORY: Trauma. COMPARISON STUDY: MRI of the cervical spine dated 10/03/2006. TECHNIQUE: CT scan of the cervical spine is performed from the skull base to the upper thoracic spine. Images are reviewed in the axial, sagittal, and coronal planes. IV contrast was not administered for this examination. A dose lowering technique was utilized adhering to the principles of ALARA. FINDINGS: Skeletal structures: The skeletal structures are well mineralized. There is no evidence of fracture or subluxation involving the cervical spine. Vertebral body height and alignment are maintained. There is straightening of the cervical lordosis with reversal centered at C5. Anterior osteophytes are noted in the lower cervical region. The odontoid process and lateral masses are intact. The atlantoaxial articulation is preserved noting mild productive degenerative change. The spinous processes appear intact. There is multilevel facet arthropathy. Intervertebral discs: There is moderate disc space narrowing at C6-C7. Only mild disc space narrowing is seen at the remaining cervical levels. Central canal: Grossly patent. Soft tissues: The prevertebral and paraspinous soft tissues are within normal limits. Mild soft tissue edema is seen in the upper chest wall. Calvarium: The visualized calvarium at the skull base appears intact. Brain parenchyma: Partially visualized brain parenchyma at the skull base is within normal limits. Sinuses and mastoids: The visualized paranasal sinuses are clear. There is a moderate left mastoid effusion. Only trace mastoid effusion is seen on the left. Lung apices: Airspace consolidation is seen at the right apex. IMPRESSION: 1. There is no evidence of fracture or subluxation involving the cervical spine. 2. Osteopenia and mild spondylotic changes above. 3. Airspace consolidation is seen at the right apex. 4. Nonspecific soft tissue edema is noted in the upper chest wall. ACT 112: Negative or not required by law. Electronically signed by: Omero Stanley M.D. 04/02/2022 1:[address] 04/02/22 13:17 CT chest diagnostic wo con CLINICAL HISTORY: trauma, ams TECHNIQUE: Multidetector row helical CT of the chest was performed. Coronal and sagittal reformations were obtained. Automated dose lowering techniques and/or adjustment according to patient size were utilized for this exam. Comparison: Comparison is made to chest radiograph 04/02/2022 FINDINGS: Exam is limited by patient motion. Lungs and pleura: Consolidative opacity with cysts noted most prominently in the right upper lobe. Groundglass and consolidation is also noted throughout, most prominently in the lingula and left lower lobe. Heart and pericardium: Cardiomegaly is seen with biatrial enlargement. Vessels: Mild atherosclerotic changes in the aorta and coronary arteries. The pulmonary trunk measures 32 mm in diameter. Mediastinum and lopez: Subcentimeter lymph nodes are seen. Chest wall and lower neck: Subcentimeter axillary lymph nodes noted. Abdomen: For findings below the diaphragm, please refer to CT of the abdomen dated the same. Bones: Degenerative changes of the thoracic spine. Old healed rib fractures are seen. IMPRESSION: Multifocal airspace opacities are seen which may represent pneumonia and/or aspiration. Follow-up to resolution is recommended. ACT 112: Negative or not required by law. Electronically signed by: Johnathon Humphrey M.D. 04/02/2022 2:20 PM Chest X-Ray 04/02/22 15:56 XR chest 1V portable HISTORY: 66 years-old Female line placement status post placement of a right IJ central venous catheter COMPARISON: Chest CT of same day TECHNIQUE: Supine AP view of the chest FINDINGS: Status post placement of a right IJ dual-lumen hemodialysis catheter distal tip in the correct location of the upper SVC. No postprocedural pneumothorax identified. The cardiac silhouette is enlarged. Mixed interstitial and alveolar opacities of the lungs redemonstrated. The bones appear grossly intact. IMPRESSION: 1. Status post placement of a dual lumen right IJ hemodialysis catheter with distal tip in the expected location of the upper SVC. 2. No postprocedural pneumothorax identified. 3. Mixed interstitial and alveolar opacities of the lungs are redemonstrated, better characterized on the chest CT of same day. ACT 112: Negative or not required by law. The above report was generated using voice recognition software. It may contain grammatical, syntax or spelling errors. Electronically signed by: Olaiynka Ramos M.D. 04/02/2022 4:20 PM I & O Totals 24 Hours 04/01/22 04/02/22 04/03/22 06:59 06:59 06:59 Intake Total 1848.178 / 1848.178 Balance 1848.178 / 1848.178 Cumulative 04/02/22 12:33 thru 04/02/22 16:48 Intake Total 1848.178 Balance 1848.178 RT Ventilator Mngmt (Last Documented) Ventilator Ordered Settings Respiratory Rate 18 04/02/22 16:48 Ventilator - PT Measurements Respiratory Rate 18 Coding Level of Care Code Critical Care 1st 30-74 mins Diagnoses Encephalopathy acute G93.40 GI bleed K92.2 MICHA (acute kidney injury) N17.9 UTI (urinary tract infection) N39.0 Cirrhosis K74.60 Lactic acidosis E87.20 Severe sepsis with septic shock A41.9; R65.21
[2022-04-02] MEDS ORDERED: VANCOMYCIN HCL 1,250 MG in SODIUM CHLORIDE 0.9% 250 ML IV ONE (17:00)
[2022-04-02] MEDS ORDERED: LORazepam 1 MG in SYRINGE 0 ML IV STA (17:09)
[2022-04-02] MEDS ORDERED: PNEUMOCOCCAL POLYSACCHARIDES 25 MCG/0.5 ML VIAL/SYR IM ONE (17:28)
[2022-04-02] MEDS ORDERED: INFLUENZA VACCINE HIGH DOSE PF 65+ 0.7 ML SYR IM ONE (17:28)
[2022-04-02] MEDS ORDERED: PHYTONADIONE 2.5 MG in DEXTROSE 5% 50 ML IV ONE (17:30)
[2022-04-02] MEDS: PHENYLEPHRINE HCL 20 MG in DEXTROSE 5% 500 ML IV SCH ×2 (17:44→23:12)
--- NOTE | 2022-04-02 17:50 | Pharmacy Report ---
Pharmacy PK ABX Note - Date of Service April 02, 2022 - Assessment and Plan Assessment 66 year old F receiving vancomycin and zosyn in the setting of acute encephalopathy empirically for sepsis (pulmonary vs. urinary source). MRSA nasal (-), blood and urine cultures pending. Patient with MICHA, SCr 3.7mg/dl. Day #1 of antimicrobial therapy. Plan Vancomycin * Loading dose: 1250 mg IV x 1 * Given acute renal dysfunction, will plan to dose by levels. * Random level 04/03 with AM labs to guide further dosing Pharmacy will continue to follow and will adjust dose/frequency as necessary. Thank you.
[2022-04-02 18:27] LABS: BUN Creatinine Ratio 33.3 (10-20); Calcium 7.9 mg/dl (8.5-10.1); Creatinine Clr Calc Pharmacy 13.6 ml/min; Est GFR (Non-African American) 12.1 ml/min; Potassium 3.6 mmol/L (3.5-5.1); Troponin I High Sensitivity 142.9 pg/ml (0-14)
[2022-04-02] MEDS: THIAMINE HCL 500 MG in SODIUM CHLORIDE 0.9% 50 ML IV SCH (18:41)
[2022-04-02] MEDS ORDERED: PHENYLEPHRINE HCL 20 MG in DEXTROSE 5% 500 ML IV SCH (19:15)
[2022-04-02] MEDS: VASOPRESSIN 20 UNITS in 0.9 % SODIUM CHLORIDE 100 ML IV SCH (19:21)
--- NOTE | 2022-04-02 20:12 | XRay Report ---
XR chest 1V portable CLINICAL HISTORY: ng tube placement confirmation COMPARISON STUDY: Chest radiograph and chest CT performed earlier today. FINDINGS: Right internal jugular line is partially imaged. Tip of nasogastric tube is within the dist al body of the stomach. Left basilar airspace opacity is noted. There is interstitial thickening. IMPRESSION: Tip of nasogastric tube within the distal body of the stomach. ACT 112: Negative or not required by law. Electronically signed by: Franklyn Finney M.D. 04/02/2022 8:11 PM
[2022-04-02] MEDS ORDERED: STAT IV STA (20:17)
[2022-04-02] MEDS: OCTREOTIDE ACETATE 500 MCG in DEXTROSE 5% 100 ML IV SCH (20:42)
[2022-04-02] MEDS: LACTULOSE SYRUP 30 GM/45 ML UDP PO SCH (20:42)
[2022-04-02 21:24] LABS: Gastric Occult Blood Positive (Negative); pH Gastric Fluid 4
[2022-04-02] MEDS ORDERED: PANTOPRAZOLE BOLUS/DRIP 1 EACH IV STA (21:27)
[2022-04-02] MEDS ORDERED: PANTOprazole 80 MG in DEXTROSE 5% 100 ML IV ONE (21:30)
[2022-04-02] MEDS: PANTOprazole 40 MG in DEXTROSE 5% 100 ML IV SCH (22:07)
[2022-04-02 23:41] LABS: Base Excess VBG -2.6 mEq/L; HCO3 VBG 20 mmol/L; Oxygen Saturation VBG 72.8 %; PCO2 VBG 27 mmHg (38-50); PO2 VBG 41 mmHg; pH VBG 7.47 (7.36-7.41)
[2022-04-02 23:51] LABS: BUN Creatinine Ratio 32.6 (10-20); Calcium 7.8 mg/dl (8.5-10.1); Creatinine Clr Calc Pharmacy 13.1 ml/min; Est GFR (African American) 13.5 ml/min; Est GFR (Non-African American) 11.6 ml/min; Potassium 3.4 mmol/L (3.5-5.1)
[2022-04-02 23:58] LABS: Hematocrit (blood only) 21.4 % (34.1-44.9); Hemoglobin 7.5 g/dl (12.0-16.0)
[2022-04-03 00:08] LABS: Troponin I High Sensitivity 276.7 pg/ml (0-14)
[2022-04-03] MEDS: PIPERACILLIN/TAZOBACTAM 3.375 GM in DEXTROSE 5% 100 ML IV SCH ×2 (00:47→12:36)
[2022-04-03] MEDS: POTASSIUM CHLORIDE / WTR 20 MEQ/100 ML PLCT IV SCH ×2 (00:47→02:24)
[2022-04-03] MEDS: THIAMINE HCL 500 MG in SODIUM CHLORIDE 0.9% 50 ML IV SCH ×3 (01:13→16:49)
[2022-04-03] MEDS ORDERED: SODIUM CHLORIDE 0.9% 250 ML IV PRN ×2 (01:17→01:19)
[2022-04-03] MEDS ORDERED: PHYTONADIONE 5 MG in DEXTROSE 5% 50 ML IV ONE ×2 (01:19→10:30)
[2022-04-03] MEDS ORDERED: STAT IV Infusion **Titration per Protocol STA ×2 (01:34→10:31)
[2022-04-03] MEDS ORDERED: fentaNYL citrate 100 MCG/2 ML VIAL IV STA (01:48)
[2022-04-03] MEDS: PHENYLEPHRINE HCL 20 MG in DEXTROSE 5% 500 ML IV SCH ×2 (02:21→05:53)
[2022-04-03] MEDS: VASOPRESSIN 20 UNITS in 0.9 % SODIUM CHLORIDE 100 ML IV SCH ×3 (02:24→21:42)
[2022-04-03] MEDS: PANTOprazole 40 MG in DEXTROSE 5% 100 ML IV SCH ×5 (02:26→22:54)
[2022-04-03] MEDS ORDERED: LORazepam 0.5 MG in SYRINGE 0 ML IV STA (02:46)
[2022-04-03] MEDS: OCTREOTIDE ACETATE 500 MCG in DEXTROSE 5% 100 ML IV SCH ×2 (05:37→11:44)
--- NOTE | 2022-04-03 05:57 | Electrocardiogram Report ---
Test Reason : Blood Pressure : / mmHG Vent. Rate : 091 BPM Atrial Rate : 091 BPM P-R Int : 126 ms QRS Dur : 070 ms QT Int : 358 ms P-R-T Axes : 060 052 203 degrees QTc Int : 440 ms Sinus rhythm with Premature ventricular complexes or Fusion complexes Low voltage QRS Abnormal ECG No previous ECGs available Confirmed by Reg Mlain ([id number]) on 04/03/2022 5:57:20 AM Referred By: REFERRED SELF Confirmed By:Reg Malin
[2022-04-03 06:16] LABS: Hematocrit (blood only) 25.6 % (34.1-44.9); Hemoglobin 8.8 g/dl (12.0-16.0); Mean Corpuscular Hgb Conc 34.4 g/dL (32.0-36.0); Mean Corpuscular Volume 93.1 fL (80.0-100.0); Mean Platelet Volume 11.4 fL (9.4-12.3); Nucleated RBC # (auto) 0.15 K/uL (0-0); Nucleated RBC % (auto) 0.6 %; Platelet Count 207 K/uL (130-400); RDW Coefficient of Variation 19.2 % (11.5-14.5); RDW Standard Deviation 60.7 fL (36.4-46.3); Red Blood Count 2.75 M/uL (3.93-5.22); White Blood Count 26.49 K/ul (4.8-10.8)
[2022-04-03 06:25] LABS: Base Excess VBG -5.6 mEq/L; HCO3 VBG 19 mmol/L; PCO2 VBG 35 mmHg (38-50); PO2 VBG 40 mmHg; pH VBG 7.35 (7.36-7.41)
[2022-04-03 06:48] LABS: Troponin I High Sensitivity 296.1 pg/ml (0-14)
[2022-04-03 06:53] LABS: Albumin Globulin Ratio 0.9 (0.9-2); Albumin Level 2.6 gm/dl (3.4-5.0); BUN Creatinine Ratio 31.8 (10-20); Bilirubin Direct 1.7 mg/dl (0-0.2); Bilirubin,Total 4.6 mg/dl (0.2-1.0); Calcium 7.8 mg/dl (8.5-10.1); Creatinine Clr Calc Pharmacy 13.3 ml/min; Est GFR (African American) 13.6 ml/min; Est GFR (Non-African American) 11.8 ml/min; Magnesium 2.8 mg/dl (1.7-2.4); Phosphorus 7.5 mg/dl (2.5-4.9); Potassium 3.8 mmol/L (3.5-5.1); Total Protein 5.6 gm/dl (6.0-8.3)
[2022-04-03] MEDS ORDERED: STAT IV STA (06:58)
[2022-04-03] MEDS ORDERED: CALCIUM GLUCONATE 10% 2,000 MG in DEXTROSE 5% 50 ML IV ONE (06:58)
[2022-04-03 07:04] LABS: INR 1.5 (0.9-1.1); Partial Thromboplastin Time 28.2 Seconds (21.0-31.0); Prothrombin Time 16.1 Seconds (9.0-12.0)
[2022-04-03] MEDS ORDERED: LORazepam 1 MG in SYRINGE 0 ML IV STA (08:13)
--- NOTE | 2022-04-03 09:06 | Gastrointestinal Consultation ---
Date of Consultation April 03, 2022 Assessment & Plan (1) Acute blood loss anemia: 66 year old critically ill female admitted to the ICU w/ acute encephalopathy, pulmonary vs urinary sepsis, PNA, MICHA and anemia w/ HGB of 3.5 on admission. There is report of black stools since admission, she has a cirrhotic appearing liver with concern for hepatic lesions on CT scan. NPO today IV PPI bolus and drip IV octreotide bolus and drip ABX for SBP prophylaxis EGD, timing to be determined Trend H&H Transfuse PRN Monitor INR, ensure less than 1.6 Appreciate work up encephalopathy -chest xr, urine culture, blood culture, head ct -start lactulose TID titrated to BMs Will need nonurgent liver imaging Guarded prognosis, no family in chart to contact to discuss care . Thank you for allowing us to participate in the care of this patient. Please call with any acute changes, questions or concerns. Please see addendum below with additional recommendation from my supervising physician. plan Supervising Physician Co-Signing Physician Notes Admitted thru the ER overnite for concerns after being found down for 3 days. Incidental finding of cirrhosis on imaging not known to be a drinker per review of available records. No family at bedside or contactable thus far. Comabtive and agitate- ? he. On pressors, octreotide, protonix, iv abx with a presumed pna and uti. Vitamin K and will plan for an egd for further evaluation of anemia and reports of gi bleeding. History of Present Illness Reason for Consultation: anemia Requesting Physician: Frederick Attending Physician: Kaylen Mack MD History of Present Illness 66 year old female without any reported past medical history admitted to the ICU from home, found down, in distress covered in urine and feces. On arrival, significant abnormal results with H&H of 3.5/11, BUN/TEACHER DRAMA 127/3.7, lactate acid 6, INR 1.9. TB 3, AST/ALT/ALKP 104/31/117. Troponin have been trending up 196, CK 260. GI asked to evaluate due to dark stools anemia. Pt was seen this AM, awake. Not alert. Screaming, unable to follow commands. CTAP 2021: . No acute traumatic findings within the abdomen or pelvis on unenhanced exam. 2. Cirrhotic liver. Extensive hypodense foci throughout the liver with capsular retraction. Although the findings could represent hepatic steatosis, a neoplastic etiology such as metastatic disease or multifocal hepatocellular carcinoma/cholangiocarcinoma cannot be excluded. A liver protocol CT is recommended on nonemergent basis. 3. Sequela of portal hypertension including varices formation and moderate ascites. Anasarca. 4. Right colon wall thickening. This may be related to portal hypertension however a nonspecific colitis could appear similar. No bowel obstruction. 5. Cholelithiasis. 6. Lingular and left lower lobe airspace opacity which could reflect pneumonia or alveolar pulmonary edema. Allergies Allergy/AdvReac Type Severity Reaction Status Date / Time Sulfa (Sulfonamide Allergy Severe EYES AND Unverified 04/02/22 17:06 Antibiotics) THROAT SWELLING Home Medications Medication Instructions Recorded Confirmed Type fluticasone propionate 50 1 spray intranasal UD 04/02/22 04/02/22 History mcg/actuation nasal spray,suspension hydrochlorothiazide 12.5 mg tablet 12.5 mg PO DAILY 04/02/22 04/02/22 History loratadine 10 mg tablet 10 mg PO DAILY 04/02/22 04/02/22 History Patient History Medical History Medical history unknown Unknown family medical history Surgical History (Updated 04/02/22 @ 19:04 by Celine Simons DO) Surgical history unknown Family History (Updated 04/02/22 @ 19:05 by Celine Simons DO) Other No known problems Social History Smoking Status: Unknown if ever smoked Preferred Language: [place]ralt[place] Communication Ability: Unable [employer] Required: No Beliefs That Will Affect Care: None Current Living Situation: Alone Current Living Situation Comment: apartment Feels Safe at Home: Declines to Answer Assistive Devices: None Review of Systems Review of Systems: Unobtainable due to cognitive status Physical Exam Constitutional: WD/WN, vitals as above Neck: trachea midline Respiratory: normal respiratory effort, lungs clear to auscultation Cardiovascular: Rate/Rhythm: + tachycardic Gastrointestinal (Abdomen): Percussion/Palpation: abdomen soft; abdomen nontender, no guarding and abdomen not rigid Skin: no rashes, warm and dry Results & Data ([facility]) Vital Signs (Past 12 Hours) Vital Signs Temp Pulse Resp BP Pulse Ox O2 Del Method 04/03/22 07:37 Room Air 04/03/22 06:00 75 19 112/93 86 L 04/03/22 05:45 73 25 H 131/61 86 L 04/03/22 05:30 56 L 12 112/68 99 04/03/22 00:00 80 04/03/22 05:15 57 L 12 105/68 98 04/03/22 05:00 58 L 12 110/69 98 04/03/22 04:45 60 12 92/63 L 100 04/03/22 00:00 36.7 C 90 15 110/57 L 93 04/02/22 23:30 36.7 C 77 20 112/69 97 04/02/22 23:15 36.7 C 71 20 101/49 L 97 04/02/22 23:00 36.7 C 70 20 106/55 L 98 04/02/22 22:45 36.7 C 70 22 99/46 L 97 04/02/22 22:30 36.6 C 72 22 107/50 L 97 04/02/22 22:15 36.6 C 75 29 H 108/57 L 96 04/02/22 22:00 36.5 C 77 25 H 109/74 95 04/03/22 04:30 61 16 105/61 99 04/03/22 04:15 64 14 102/75 69 L 04/03/22 04:00 74 15 139/79 04/03/22 03:45 34.1 C L 70 10 L 129/72 94 04/03/22 03:30 34.0 C L 81 20 124/87 95 04/03/22 03:15 32.4 C L 81 21 122/75 93 04/03/22 03:00 26.5 C L 78 24 111/50 L 96 04/03/22 02:45 35.6 C L 76 31 H 88/42 L 98 04/03/22 02:30 36.0 C L 66 14 88/54 L 98 04/03/22 02:15 36.0 C L 69 26 H 96/62 L 98 04/03/22 02:00 35.5 C L 79 24 123/68 98 04/03/22 01:45 36.5 C 80 26 H 109/66 99 04/03/22 01:30 36.4 C L 82 26 H 97/60 L 96 04/03/22 01:15 36.6 C 81 21 99/67 L 98 04/03/22 01:00 35.7 C L 80 23 110/57 L 96 04/03/22 00:45 36.6 C 80 17 98 04/03/22 00:30 36.7 C 81 22 139/37 L 98 04/03/22 04:39 36.5 C 62 12 105/61 98 04/03/22 04:16 36.5 C 62 16 105/61 99 04/03/22 03:45 36.5 C 71 11 L 129/72 94 04/03/22 03:15 36.5 C 81 23 111/50 L 95 04/03/22 03:00 36.5 C 79 24 111/64 95 04/03/22 02:46 36.5 C 78 22 111/64 95 04/03/22 02:31 36.0 C L 78 19 111/64 96 04/03/22 02:44 35.8 C L 76 30 H 88/54 L 97 04/03/22 02:40 36.0 C L 71 21 88/54 L 97 04/03/22 02:10 35.9 C L 72 22 122/68 96 04/03/22 02:06 35.8 C L 80 23 123/68 97 Laboratory Results 04/03/22 04/03/22 04/03/22 Range/Units 06:02 05:57 05:57 WBC (4.8-10.8) K/ul RBC (3.93-5.22) M/uL Hgb (12.0-16.0) g/dl POC Hgb Hct (34.1-44.9) % POC Hct (37-47) % MCV (80.0-100.0) fL MCH (25.0-34.0) pg MCHC (32.0-36.0) g/dL RDW Std Deviation (36.4-46.3) fL RDW Coeff of Jaylin (11.5-14.5) % Plt Count (130-400) K/uL MPV (9.4-12.3) fL Immature Gran % (Auto) % Neut % (Auto) % Lymph % (Auto) % Brooke % (Auto) % Eos % (Auto) % Baso % (Auto) % Neut # (Auto) (1.4-6.5) K/uL Lymph # (Auto) (1.2-3.4) K/uL Brooke # (Auto) (0.24-0.82) K/uL Eos # (Auto) (0-0.50) K/uL Baso # (Auto) (0-0.2) K/uL Immature Gran # (Auto) (0.00-0.02) K/uL Absolute Nucleated RBC (0-0) K/uL Nucleated RBC % (auto) % Macrocytosis PT (9.0-12.0) Seconds INR (0.9-1.1) APTT (21.0-31.0) Seconds PTT Ratio VBG pH (7.36-7.41) VBG pCO2 (38-50) mmHg VBG pO2 mmHg VBG HCO3 mmol/L VBG O2 Saturation % VBG Base Excess mEq/L POC Sodium (135-144) mmol/L Sodium (136-145) mmol/L POC Potassium (3.3-5.0) mmol/L Potassium (3.5-5.1) mmol/L POC Chloride (101-112) mmol/L Chloride (98-107) mmol/L Carbon Dioxide (21-32) mmol/L POC Total CO2 (24-31) mmol/L Anion Gap (3-11) POC Anion Gap (16-25) mmol/L POC BUN (7-18) mg/dl BUN (6-23) mg/dl Creatinine (0.6-1.2) mg/dl POC Creatinine (0.6-1.3) mg/dl Est Cr Clr Drug Dosing Est GFR ( Amer) ml/min Est GFR (Non-Af Amer) ml/min BUN/Creatinine Ratio (10-20) Glucose (70-99(Fasting)) mg/dl POC Glucose (other) (70-99) mg/dl Lactate (0.4-2.0) mmol/L Calcium (8.5-10.1) mg/dl POC Ioniz Calcium Paty (1.12-1.32) mmol/l Ionized Calcium 1.04 L (1.12-1.32) mmol/L Phosphorus (2.5-4.9) mg/dl Magnesium (1.7-2.4) mg/dl Total Bilirubin (0.2-1.0) mg/dl Direct Bilirubin AST (13-39) U/L ALT (7-52) U/L Alkaline Phosphatase (34-104) U/L Ammonia Total Creatine Kinase Cancelled (26-192) U/L Troponin I High Sens (0-14) pg/ml Total Protein (6.0-8.3) gm/dl Albumin (3.4-5.0) gm/dl Globulin (2.5-4.0) gm/dl Albumin/Globulin Ratio (0.9-2) Lipase (11-82) U/L TSH (0.300-4.500) uIu/ml Random Cortisol mcg/dl Urine Color Urine Appearance (Clear) Urine pH (4.5-7.5) Ur Specific [place] (1.000-1.030) Urine Protein (Negative) Urine Glucose (UA) (Negative) Urine Ketones (Negative) Urine Blood (Negative) Urine Nitrite (Negative) Urine Bilirubin (Negative) Urine Urobilinogen (Negative) Ur Leukocyte Esterase (Negative) Urine WBC (Auto) (0-5) /hpf Urine RBC (Auto) (0-4) /hpf U Hyaline Cast (Auto) (0-5) /lpf U Epithel Cells (Auto) (0-5) /lpf Urine Bacteria (Auto) (Negative) Urine Yeast Nasal Screen MRSA (PCR) (Negative) Gastric Fluid pH Gastric Occult Blood (Negative) Random Vancomycin 15.8 (10-20) mcg/ml Urine Opiates Screen (Neg) Ur Methadone, Qual (Neg) Urine Barbiturates (Neg) Ur Phencyclidine (PCP) (Neg) U Amphetamin/Meth Scrn (Neg) MDMA (Ecstasy) Screen (Neg) U Benzodiazepines Scrn (Neg) Ur Cocaine Metabolite (Neg) U Marijuana (THC) Screen (Neg) Ethyl Alcohol mg/dL (<10.0) mg/dl SARS-CoV-2, RNA, NAAT (NEGATIVE) Blood Type Blood Type Recheck Antibody Screen Crossmatch 04/03/22 04/03/22 04/03/22 Range/Units 05:57 05:57 05:57 WBC 26.49 H (4.8-10.8) K/ul RBC 2.75 L (3.93-5.22) M/uL Hgb 8.8 L (12.0-16.0) g/dl POC Hgb Hct 25.6 L (34.1-44.9) % POC Hct (37-47) % MCV 93.1 D (80.0-100.0) fL MCH 32.0 (25.0-34.0) pg MCHC 34.4 D (32.0-36.0) g/dL RDW Std Deviation 60.7 H (36.4-46.3) fL RDW Coeff of Jaylin 19.2 H (11.5-14.5) % Plt Count 207 (130-400) K/uL MPV 11.4 (9.4-12.3) fL Immature Gran % (Auto) % Neut % (Auto) % Lymph % (Auto) % Brooke % (Auto) % Eos % (Auto) % Baso % (Auto) % Neut # (Auto) (1.4-6.5) K/uL Lymph # (Auto) (1.2-3.4) K/uL Brooke # (Auto) (0.24-0.82) K/uL Eos # (Auto) (0-0.50) K/uL Baso # (Auto) (0-0.2) K/uL Immature Gran # (Auto) (0.00-0.02) K/uL Absolute Nucleated RBC 0.15 H (0-0) K/uL Nucleated RBC % (auto) 0.6 % Macrocytosis PT 16.1 H (9.0-12.0) Seconds INR 1.5 H (0.9-1.1) APTT 28.2 (21.0-31.0) Seconds PTT Ratio 1.0 VBG pH (7.36-7.41) VBG pCO2 (38-50) mmHg VBG pO2 mmHg VBG HCO3 mmol/L VBG O2 Saturation % VBG Base Excess mEq/L POC Sodium (135-144) mmol/L Sodium 133 L (136-145) mmol/L POC Potassium (3.3-5.0) mmol/L Potassium 3.8 (3.5-5.1) mmol/L POC Chloride (101-112) mmol/L Chloride 99 (98-107) mmol/L Carbon Dioxide 19 L (21-32) mmol/L POC Total CO2 (24-31) mmol/L Anion Gap 15 H (3-11) POC Anion Gap (16-25) mmol/L POC BUN (7-18) mg/dl BUN 121 H (6-23) mg/dl Creatinine 3.80 H (0.6-1.2) mg/dl POC Creatinine (0.6-1.3) mg/dl Est Cr Clr Drug Dosing 13.3 Est GFR ( Amer) 13.6 ml/min Est GFR (Non-Af Amer) 11.8 ml/min BUN/Creatinine Ratio 31.8 H (10-20) Glucose 185 H (70-99(Fasting)) mg/dl POC Glucose (other) (70-99) mg/dl Lactate (0.4-2.0) mmol/L Calcium 7.8 L (8.5-10.1) mg/dl POC Ioniz Calcium Paty (1.12-1.32) mmol/l Ionized Calcium (1.12-1.32) mmol/L Phosphorus 7.5 H (2.5-4.9) mg/dl Magnesium 2.8 H (1.7-2.4) mg/dl Total Bilirubin 4.6 H D (0.2-1.0) mg/dl Direct Bilirubin 1.7 H AST 110 H (13-39) U/L ALT 38 (7-52) U/L Alkaline Phosphatase 107 H (34-104) U/L Ammonia Total Creatine Kinase 260 H (26-192) U/L Troponin I High Sens 296.1 H* (0-14) pg/ml Total Protein 5.6 L (6.0-8.3) gm/dl Albumin 2.6 L (3.4-5.0) gm/dl Globulin 3.0 (2.5-4.0) gm/dl Albumin/Globulin Ratio 0.9 (0.9-2) Lipase (11-82) U/L TSH (0.300-4.500) uIu/ml Random Cortisol mcg/dl Urine Color Urine Appearance (Clear) Urine pH (4.5-7.5) Ur Specific [place] (1.000-1.030) Urine Protein (Negative) Urine Glucose (UA) (Negative) Urine Ketones (Negative) Urine Blood (Negative) Urine Nitrite (Negative) Urine Bilirubin (Negative) Urine Urobilinogen (Negative) Ur Leukocyte Esterase (Negative) Urine WBC (Auto) (0-5) /hpf Urine RBC (Auto) (0-4) /hpf U Hyaline Cast (Auto) (0-5) /lpf U Epithel Cells (Auto) (0-5) /lpf Urine Bacteria (Auto) (Negative) Urine Yeast Nasal Screen MRSA (PCR) (Negative) Gastric Fluid pH Gastric Occult Blood (Negative) Random Vancomycin (10-20) mcg/ml Urine Opiates Screen (Neg) Ur Methadone, Qual (Neg) Urine Barbiturates (Neg) Ur Phencyclidine (PCP) (Neg) U Amphetamin/Meth Scrn (Neg) MDMA (Ecstasy) Screen (Neg) U Benzodiazepines Scrn (Neg) Ur Cocaine Metabolite (Neg) U Marijuana (THC) Screen (Neg) Ethyl Alcohol mg/dL (<10.0) mg/dl SARS-CoV-2, RNA, NAAT (NEGATIVE) Blood Type Blood Type Recheck Antibody Screen Crossmatch 04/03/22 04/03/22 04/02/22 Range/Units 05:57 05:57 23:12 WBC (4.8-10.8) K/ul RBC (3.93-5.22) M/uL Hgb 7.5 L D (12.0-16.0) g/dl POC Hgb Hct 21.4 L (34.1-44.9) % POC Hct (37-47) % MCV (80.0-100.0) fL MCH (25.0-34.0) pg MCHC (32.0-36.0) g/dL RDW Std Deviation (36.4-46.3) fL RDW Coeff of Jaylin (11.5-14.5) % Plt Count (130-400) K/uL MPV (9.4-12.3) fL Immature Gran % (Auto) % Neut % (Auto) % Lymph % (Auto) % Brooke % (Auto) % Eos % (Auto) % Baso % (Auto) % Neut # (Auto) (1.4-6.5) K/uL Lymph # (Auto) (1.2-3.4) K/uL Brooke # (Auto) (0.24-0.82) K/uL Eos # (Auto) (0-0.50) K/uL Baso # (Auto) (0-0.2) K/uL Immature Gran # (Auto) (0.00-0.02) K/uL Absolute Nucleated RBC (0-0) K/uL Nucleated RBC % (auto) % Macrocytosis PT (9.0-12.0) Seconds INR (0.9-1.1) APTT (21.0-31.0) Seconds PTT Ratio VBG pH 7.35 L (7.36-7.41) VBG pCO2 35 L (38-50) mmHg VBG pO2 40 mmHg VBG HCO3 19 mmol/L VBG O2 Saturation 62.0 % VBG Base Excess -5.6 mEq/L POC Sodium (135-144) mmol/L Sodium (136-145) mmol/L POC Potassium (3.3-5.0) mmol/L Potassium (3.5-5.1) mmol/L POC Chloride (101-112) mmol/L Chloride (98-107) mmol/L Carbon Dioxide (21-32) mmol/L POC Total CO2 (24-31) mmol/L Anion Gap (3-11) POC Anion Gap (16-25) mmol/L POC BUN (7-18) mg/dl BUN (6-23) mg/dl Creatinine (0.6-1.2) mg/dl POC Creatinine (0.6-1.3) mg/dl Est Cr Clr Drug Dosing Est GFR ( Amer) ml/min Est GFR (Non-Af Amer) ml/min BUN/Creatinine Ratio (10-20) Glucose (70-99(Fasting)) mg/dl POC Glucose (other) (70-99) mg/dl Lactate (0.4-2.0) mmol/L Calcium (8.5-10.1) mg/dl POC Ioniz Calcium Paty (1.12-1.32) mmol/l Ionized Calcium (1.12-1.32) mmol/L Phosphorus (2.5-4.9) mg/dl Magnesium (1.7-2.4) mg/dl Total Bilirubin (0.2-1.0) mg/dl Direct Bilirubin AST (13-39) U/L ALT (7-52) U/L Alkaline Phosphatase (34-104) U/L Ammonia 72.0 Total Creatine Kinase (26-192) U/L Troponin I High Sens (0-14) pg/ml Total Protein (6.0-8.3) gm/dl Albumin (3.4-5.0) gm/dl Globulin (2.5-4.0) gm/dl Albumin/Globulin Ratio (0.9-2) Lipase (11-82) U/L TSH (0.300-4.500) uIu/ml Random Cortisol mcg/dl Urine Color Urine Appearance (Clear) Urine pH (4.5-7.5) Ur Specific [place] (1.000-1.030) Urine Protein (Negative) Urine Glucose (UA) (Negative) Urine Ketones (Negative) Urine Blood (Negative) Urine Nitrite (Negative) Urine Bilirubin (Negative) Urine Urobilinogen (Negative) Ur Leukocyte Esterase (Negative) Urine WBC (Auto) (0-5) /hpf Urine RBC (Auto) (0-4) /hpf U Hyaline Cast (Auto) (0-5) /lpf U Epithel Cells (Auto) (0-5) /lpf Urine Bacteria (Auto) (Negative) Urine Yeast Nasal Screen MRSA (PCR) (Negative) Gastric Fluid pH Gastric Occult Blood (Negative) Random Vancomycin (10-20) mcg/ml Urine Opiates Screen (Neg) Ur Methadone, Qual (Neg) Urine Barbiturates (Neg) Ur Phencyclidine (PCP) (Neg) U Amphetamin/Meth Scrn (Neg) MDMA (Ecstasy) Screen (Neg) U Benzodiazepines Scrn (Neg) Ur Cocaine Metabolite (Neg) U Marijuana (THC) Screen (Neg) Ethyl Alcohol mg/dL (<10.0) mg/dl SARS-CoV-2, RNA, NAAT (NEGATIVE) Blood Type Blood Type Recheck Antibody Screen Crossmatch 04/02/22 04/02/22 04/02/22 Range/Units 23:12 23:12 23:12 WBC (4.8-10.8) K/ul RBC (3.93-5.22) M/uL Hgb (12.0-16.0) g/dl POC Hgb Hct (34.1-44.9) % POC Hct (37-47) % MCV (80.0-100.0) fL MCH (25.0-34.0) pg MCHC (32.0-36.0) g/dL RDW Std Deviation (36.4-46.3) fL RDW Coeff of Jaylin (11.5-14.5) % Plt Count (130-400) K/uL MPV (9.4-12.3) fL Immature Gran % (Auto) % Neut % (Auto) % Lymph % (Auto) % Brooke % (Auto) % Eos % (Auto) % Baso % (Auto) % Neut # (Auto) (1.4-6.5) K/uL Lymph # (Auto) (1.2-3.4) K/uL Brooke # (Auto) (0.24-0.82) K/uL Eos # (Auto) (0-0.50) K/uL Baso # (Auto) (0-0.2) K/uL Immature Gran # (Auto) (0.00-0.02) K/uL Absolute Nucleated RBC (0-0) K/uL Nucleated RBC % (auto) % Macrocytosis PT (9.0-12.0) Seconds INR (0.9-1.1) APTT (21.0-31.0) Seconds PTT Ratio VBG pH 7.47 H (7.36-7.41) VBG pCO2 27 L (38-50) mmHg VBG pO2 41 mmHg VBG HCO3 20 mmol/L VBG O2 Saturation 72.8 % VBG Base Excess -2.6 mEq/L POC Sodium (135-144) mmol/L Sodium 136 (136-145) mmol/L POC Potassium (3.3-5.0) mmol/L Potassium 3.4 L (3.5-5.1) mmol/L POC Chloride (101-112) mmol/L Chloride 102 (98-107) mmol/L Carbon Dioxide 20 L (21-32) mmol/L POC Total CO2 (24-31) mmol/L Anion Gap 14 H (3-11) POC Anion Gap (16-25) mmol/L POC BUN (7-18) mg/dl BUN 125 H (6-23) mg/dl Creatinine 3.84 H (0.6-1.2) mg/dl POC Creatinine (0.6-1.3) mg/dl Est Cr Clr Drug Dosing 13.1 Est GFR ( Amer) 13.5 ml/min Est GFR (Non-Af Amer) 11.6 ml/min BUN/Creatinine Ratio 32.6 H (10-20) Glucose 221 H (70-99(Fasting)) mg/dl POC Glucose (other) (70-99) mg/dl Lactate 1.4 (0.4-2.0) mmol/L Calcium 7.8 L (8.5-10.1) mg/dl POC Ioniz Calcium Paty (1.12-1.32) mmol/l Ionized Calcium (1.12-1.32) mmol/L Phosphorus (2.5-4.9) mg/dl Magnesium (1.7-2.4) mg/dl Total Bilirubin (0.2-1.0) mg/dl Direct Bilirubin AST (13-39) U/L ALT (7-52) U/L Alkaline Phosphatase (34-104) U/L Ammonia Total Creatine Kinase (26-192) U/L Troponin I High Sens 276.7 H* D (0-14) pg/ml Total Protein (6.0-8.3) gm/dl Albumin (3.4-5.0) gm/dl Globulin (2.5-4.0) gm/dl Albumin/Globulin Ratio (0.9-2) Lipase (11-82) U/L TSH (0.300-4.500) uIu/ml Random Cortisol mcg/dl Urine Color Urine Appearance (Clear) Urine pH (4.5-7.5) Ur Specific [place] (1.000-1.030) Urine Protein (Negative) Urine Glucose (UA) (Negative) Urine Ketones (Negative) Urine Blood (Negative) Urine Nitrite (Negative) Urine Bilirubin (Negative) Urine Urobilinogen (Negative) Ur Leukocyte Esterase (Negative) Urine WBC (Auto) (0-5) /hpf Urine RBC (Auto) (0-4) /hpf U Hyaline Cast (Auto) (0-5) /lpf U Epithel Cells (Auto) (0-5) /lpf Urine Bacteria (Auto) (Negative) Urine Yeast Nasal Screen MRSA (PCR) (Negative) Gastric Fluid pH Gastric Occult Blood (Negative) Random Vancomycin (10-20) mcg/ml Urine Opiates Screen (Neg) Ur Methadone, Qual (Neg) Urine Barbiturates (Neg) Ur Phencyclidine (PCP) (Neg) U Amphetamin/Meth Scrn (Neg) MDMA (Ecstasy) Screen (Neg) U Benzodiazepines Scrn (Neg) Ur Cocaine Metabolite (Neg) U Marijuana (THC) Screen (Neg) Ethyl Alcohol mg/dL (<10.0) mg/dl SARS-CoV-2, RNA, NAAT (NEGATIVE) Blood Type Blood Type Recheck Antibody Screen Crossmatch 04/02/22 04/02/22 04/02/22 Range/Units 21:01 21:01 17:22 WBC (4.8-10.8) K/ul RBC (3.93-5.22) M/uL Hgb (12.0-16.0) g/dl POC Hgb Hct (34.1-44.9) % POC Hct (37-47) % MCV (80.0-100.0) fL MCH (25.0-34.0) pg MCHC (32.0-36.0) g/dL RDW Std Deviation (36.4-46.3) fL RDW Coeff of Jaylin (11.5-14.5) % Plt Count (130-400) K/uL MPV (9.4-12.3) fL Immature Gran % (Auto) % Neut % (Auto) % Lymph % (Auto) % Brooke % (Auto) % Eos % (Auto) % Baso % (Auto) % Neut # (Auto) (1.4-6.5) K/uL Lymph # (Auto) (1.2-3.4) K/uL Brooke # (Auto) (0.24-0.82) K/uL Eos # (Auto) (0-0.50) K/uL Baso # (Auto) (0-0.2) K/uL Immature Gran # (Auto) (0.00-0.02) K/uL Absolute Nucleated RBC (0-0) K/uL Nucleated RBC % (auto) % Macrocytosis PT (9.0-12.0) Seconds INR (0.9-1.1) APTT (21.0-31.0) Seconds PTT Ratio VBG pH (7.36-7.41) VBG pCO2 (38-50) mmHg VBG pO2 mmHg VBG HCO3 mmol/L VBG O2 Saturation % VBG Base Excess mEq/L POC Sodium (135-144) mmol/L Sodium 141 (136-145) mmol/L POC Potassium (3.3-5.0) mmol/L Potassium 3.6 (3.5-5.1) mmol/L POC Chloride (101-112) mmol/L Chloride 105 (98-107) mmol/L Carbon Dioxide 19 L (21-32) mmol/L POC Total CO2 (24-31) mmol/L Anion Gap 17 H (3-11) POC Anion Gap (16-25) mmol/L POC BUN (7-18) mg/dl BUN 124 H (6-23) mg/dl Creatinine 3.72 H (0.6-1.2) mg/dl POC Creatinine (0.6-1.3) mg/dl Est Cr Clr Drug Dosing 13.6 Est GFR ( Amer) 14.0 ml/min Est GFR (Non-Af Amer) 12.1 ml/min BUN/Creatinine Ratio 33.3 H (10-20) Glucose 131 H (70-99(Fasting)) mg/dl POC Glucose (other) (70-99) mg/dl Lactate (0.4-2.0) mmol/L Calcium 7.9 L (8.5-10.1) mg/dl POC Ioniz Calcium Paty (1.12-1.32) mmol/l Ionized Calcium (1.12-1.32) mmol/L Phosphorus (2.5-4.9) mg/dl Magnesium (1.7-2.4) mg/dl Total Bilirubin (0.2-1.0) mg/dl Direct Bilirubin AST (13-39) U/L ALT (7-52) U/L Alkaline Phosphatase (34-104) U/L Ammonia Total Creatine Kinase (26-192) U/L Troponin I High Sens 142.9 H* D (0-14) pg/ml Total Protein (6.0-8.3) gm/dl Albumin (3.4-5.0) gm/dl Globulin (2.5-4.0) gm/dl Albumin/Globulin Ratio (0.9-2) Lipase (11-82) U/L TSH (0.300-4.500) uIu/ml Random Cortisol mcg/dl Urine Color Urine Appearance (Clear) Urine pH (4.5-7.5) Ur Specific [place] (1.000-1.030) Urine Protein (Negative) Urine Glucose (UA) (Negative) Urine Ketones (Negative) Urine Blood (Negative) Urine Nitrite (Negative) Urine Bilirubin (Negative) Urine Urobilinogen (Negative) Ur Leukocyte Esterase (Negative) Urine WBC (Auto) (0-5) /hpf Urine RBC (Auto) (0-4) /hpf U Hyaline Cast (Auto) (0-5) /lpf U Epithel Cells (Auto) (0-5) /lpf Urine Bacteria (Auto) (Negative) Urine Yeast Nasal Screen MRSA (PCR) Negative (Negative) Gastric Fluid pH 4 Gastric Occult Blood Positive A (Negative) Random Vancomycin (10-20) mcg/ml Urine Opiates Screen (Neg) Ur Methadone, Qual (Neg) Urine Barbiturates (Neg) Ur Phencyclidine (PCP) (Neg) U Amphetamin/Meth Scrn (Neg) MDMA (Ecstasy) Screen (Neg) U Benzodiazepines Scrn (Neg) Ur Cocaine Metabolite (Neg) U Marijuana (THC) Screen (Neg) Ethyl Alcohol mg/dL (<10.0) mg/dl SARS-CoV-2, RNA, NAAT (NEGATIVE) Blood Type Blood Type Recheck Antibody Screen Crossmatch 04/02/22 04/02/22 04/02/22 Range/Units 17:22 17:22 17:22 WBC (4.8-10.8) K/ul RBC (3.93-5.22) M/uL Hgb (12.0-16.0) g/dl POC Hgb Hct (34.1-44.9) % POC Hct (37-47) % MCV (80.0-100.0) fL MCH (25.0-34.0) pg MCHC (32.0-36.0) g/dL RDW Std Deviation (36.4-46.3) fL RDW Coeff of Jaylin (11.5-14.5) % Plt Count (130-400) K/uL MPV (9.4-12.3) fL Immature Gran % (Auto) % Neut % (Auto) % Lymph % (Auto) % Brooke % (Auto) % Eos % (Auto) % Baso % (Auto) % Neut # (Auto) (1.4-6.5) K/uL Lymph # (Auto) (1.2-3.4) K/uL Brooke # (Auto) (0.24-0.82) K/uL Eos # (Auto) (0-0.50) K/uL Baso # (Auto) (0-0.2) K/uL Immature Gran # (Auto) (0.00-0.02) K/uL Absolute Nucleated RBC (0-0) K/uL Nucleated RBC % (auto) % Macrocytosis PT (9.0-12.0) Seconds INR (0.9-1.1) APTT (21.0-31.0) Seconds PTT Ratio VBG pH (7.36-7.41) VBG pCO2 (38-50) mmHg VBG pO2 mmHg VBG HCO3 mmol/L VBG O2 Saturation % VBG Base Excess mEq/L POC Sodium (135-144) mmol/L Sodium (136-145) mmol/L POC Potassium (3.3-5.0) mmol/L Potassium (3.5-5.1) mmol/L POC Chloride (101-112) mmol/L Chloride (98-107) mmol/L Carbon Dioxide (21-32) mmol/L POC Total CO2 (24-31) mmol/L Anion Gap (3-11) POC Anion Gap (16-25) mmol/L POC BUN (7-18) mg/dl BUN (6-23) mg/dl Creatinine (0.6-1.2) mg/dl POC Creatinine (0.6-1.3) mg/dl Est Cr Clr Drug Dosing Est GFR ( Amer) ml/min Est GFR (Non-Af Amer) ml/min BUN/Creatinine Ratio (10-20) Glucose (70-99(Fasting)) mg/dl POC Glucose (other) (70-99) mg/dl Lactate (0.4-2.0) mmol/L Calcium (8.5-10.1) mg/dl POC Ioniz Calcium Paty (1.12-1.32) mmol/l Ionized Calcium (1.12-1.32) mmol/L Phosphorus (2.5-4.9) mg/dl Magnesium (1.7-2.4) mg/dl Total Bilirubin (0.2-1.0) mg/dl Direct Bilirubin AST (13-39) U/L ALT (7-52) U/L Alkaline Phosphatase (34-104) U/L Ammonia Total Creatine Kinase (26-192) U/L Troponin I High Sens (0-14) pg/ml Total Protein (6.0-8.3) gm/dl Albumin (3.4-5.0) gm/dl Globulin (2.5-4.0) gm/dl Albumin/Globulin Ratio (0.9-2) Lipase (11-82) U/L TSH 1.268 1.256 (0.300-4.500) uIu/ml Random Cortisol 32.47 mcg/dl Urine Color Urine Appearance (Clear) Urine pH (4.5-7.5) Ur Specific [place] (1.000-1.030) Urine Protein (Negative) Urine Glucose (UA) (Negative) Urine Ketones (Negative) Urine Blood (Negative) Urine Nitrite (Negative) Urine Bilirubin (Negative) Urine Urobilinogen (Negative) Ur Leukocyte Esterase (Negative) Urine WBC (Auto) (0-5) /hpf Urine RBC (Auto) (0-4) /hpf U Hyaline Cast (Auto) (0-5) /lpf U Epithel Cells (Auto) (0-5) /lpf Urine Bacteria (Auto) (Negative) Urine Yeast Nasal Screen MRSA (PCR) (Negative) Gastric Fluid pH Gastric Occult Blood (Negative) Random Vancomycin (10-20) mcg/ml Urine Opiates Screen (Neg) Ur Methadone, Qual (Neg) Urine Barbiturates (Neg) Ur Phencyclidine (PCP) (Neg) U Amphetamin/Meth Scrn (Neg) MDMA (Ecstasy) Screen (Neg) U Benzodiazepines Scrn (Neg) Ur Cocaine Metabolite (Neg) U Marijuana (THC) Screen (Neg) Ethyl Alcohol mg/dL (<10.0) mg/dl SARS-CoV-2, RNA, NAAT (NEGATIVE) Blood Type Blood Type Recheck Antibody Screen Crossmatch 04/02/22 04/02/22 04/02/22 Range/Units 17:22 17:21 16:20 WBC (4.8-10.8) K/ul RBC (3.93-5.22) M/uL Hgb (12.0-16.0) g/dl POC Hgb Hct (34.1-44.9) % POC Hct (37-47) % MCV (80.0-100.0) fL MCH (25.0-34.0) pg MCHC (32.0-36.0) g/dL RDW Std Deviation (36.4-46.3) fL RDW Coeff of Jaylin (11.5-14.5) % Plt Count (130-400) K/uL MPV (9.4-12.3) fL Immature Gran % (Auto) % Neut % (Auto) % Lymph % (Auto) % Brooke % (Auto) % Eos % (Auto) % Baso % (Auto) % Neut # (Auto) (1.4-6.5) K/uL Lymph # (Auto) (1.2-3.4) K/uL Brooke # (Auto) (0.24-0.82) K/uL Eos # (Auto) (0-0.50) K/uL Baso # (Auto) (0-0.2) K/uL Immature Gran # (Auto) (0.00-0.02) K/uL Absolute Nucleated RBC (0-0) K/uL Nucleated RBC % (auto) % Macrocytosis PT (9.0-12.0) Seconds INR (0.9-1.1) APTT (21.0-31.0) Seconds PTT Ratio VBG pH (7.36-7.41) VBG pCO2 (38-50) mmHg VBG pO2 mmHg VBG HCO3 mmol/L VBG O2 Saturation % VBG Base Excess mEq/L POC Sodium (135-144) mmol/L Sodium (136-145) mmol/L POC Potassium (3.3-5.0) mmol/L Potassium (3.5-5.1) mmol/L POC Chloride (101-112) mmol/L Chloride (98-107) mmol/L Carbon Dioxide (21-32) mmol/L POC Total CO2 (24-31) mmol/L Anion Gap (3-11) POC Anion Gap (16-25) mmol/L POC BUN (7-18) mg/dl BUN (6-23) mg/dl Creatinine (0.6-1.2) mg/dl POC Creatinine (0.6-1.3) mg/dl Est Cr Clr Drug Dosing Est GFR ( Amer) ml/min Est GFR (Non-Af Amer) ml/min BUN/Creatinine Ratio (10-20) Glucose (70-99(Fasting)) mg/dl POC Glucose (other) (70-99) mg/dl Lactate 3.1 H* (0.4-2.0) mmol/L Calcium (8.5-10.1) mg/dl POC Ioniz Calcium Paty (1.12-1.32) mmol/l Ionized Calcium (1.12-1.32) mmol/L Phosphorus (2.5-4.9) mg/dl Magnesium (1.7-2.4) mg/dl Total Bilirubin (0.2-1.0) mg/dl Direct Bilirubin AST (13-39) U/L ALT (7-52) U/L Alkaline Phosphatase (34-104) U/L Ammonia 115.0 H Total Creatine Kinase (26-192) U/L Troponin I High Sens (0-14) pg/ml Total Protein (6.0-8.3) gm/dl Albumin (3.4-5.0) gm/dl Globulin (2.5-4.0) gm/dl Albumin/Globulin Ratio (0.9-2) Lipase (11-82) U/L TSH (0.300-4.500) uIu/ml Random Cortisol mcg/dl Urine Color Urine Appearance (Clear) Urine pH (4.5-7.5) Ur Specific [place] (1.000-1.030) Urine Protein (Negative) Urine Glucose (UA) (Negative) Urine Ketones (Negative) Urine Blood (Negative) Urine Nitrite (Negative) Urine Bilirubin (Negative) Urine Urobilinogen (Negative) Ur Leukocyte Esterase (Negative) Urine WBC (Auto) (0-5) /hpf Urine RBC (Auto) (0-4) /hpf U Hyaline Cast (Auto) (0-5) /lpf U Epithel Cells (Auto) (0-5) /lpf Urine Bacteria (Auto) (Negative) Urine Yeast Nasal Screen MRSA (PCR) Negative (Negative) Gastric Fluid pH Gastric Occult Blood (Negative) Random Vancomycin (10-20) mcg/ml Urine Opiates Screen (Neg) Ur Methadone, Qual (Neg) Urine Barbiturates (Neg) Ur Phencyclidine (PCP) (Neg) U Amphetamin/Meth Scrn (Neg) MDMA (Ecstasy) Screen (Neg) U Benzodiazepines Scrn (Neg) Ur Cocaine Metabolite (Neg) U Marijuana (THC) Screen (Neg) Ethyl Alcohol mg/dL (<10.0) mg/dl SARS-CoV-2, RNA, NAAT (NEGATIVE) Blood Type Blood Type Recheck Antibody Screen Crossmatch 04/02/22 04/02/22 04/02/22 Range/Units 15:03 15:03 15:03 WBC (4.8-10.8) K/ul RBC (3.93-5.22) M/uL Hgb (12.0-16.0) g/dl POC Hgb Hct (34.1-44.9) % POC Hct (37-47) % MCV (80.0-100.0) fL MCH (25.0-34.0) pg MCHC (32.0-36.0) g/dL RDW Std Deviation (36.4-46.3) fL RDW Coeff of Jaylin (11.5-14.5) % Plt Count (130-400) K/uL MPV (9.4-12.3) fL Immature Gran % (Auto) % Neut % (Auto) % Lymph % (Auto) % Brooke % (Auto) % Eos % (Auto) % Baso % (Auto) % Neut # (Auto) (1.4-6.5) K/uL Lymph # (Auto) (1.2-3.4) K/uL Brooke # (Auto) (0.24-0.82) K/uL Eos # (Auto) (0-0.50) K/uL Baso # (Auto) (0-0.2) K/uL Immature Gran # (Auto) (0.00-0.02) K/uL Absolute Nucleated RBC (0-0) K/uL Nucleated RBC % (auto) % Macrocytosis PT (9.0-12.0) Seconds INR (0.9-1.1) APTT (21.0-31.0) Seconds PTT Ratio VBG pH (7.36-7.41) VBG pCO2 (38-50) mmHg VBG pO2 mmHg VBG HCO3 mmol/L VBG O2 Saturation % VBG Base Excess mEq/L POC Sodium (135-144) mmol/L Sodium (136-145) mmol/L POC Potassium (3.3-5.0) mmol/L Potassium (3.5-5.1) mmol/L POC Chloride (101-112) mmol/L Chloride (98-107) mmol/L Carbon Dioxide (21-32) mmol/L POC Total CO2 (24-31) mmol/L Anion Gap (3-11) POC Anion Gap (16-25) mmol/L POC BUN (7-18) mg/dl BUN (6-23) mg/dl Creatinine (0.6-1.2) mg/dl POC Creatinine (0.6-1.3) mg/dl Est Cr Clr Drug Dosing Est GFR ( Amer) ml/min Est GFR (Non-Af Amer) ml/min BUN/Creatinine Ratio (10-20) Glucose (70-99(Fasting)) mg/dl POC Glucose (other) (70-99) mg/dl Lactate 6.0 H* (0.4-2.0) mmol/L Calcium (8.5-10.1) mg/dl POC Ioniz Calcium Paty (1.12-1.32) mmol/l Ionized Calcium (1.12-1.32) mmol/L Phosphorus (2.5-4.9) mg/dl Magnesium (1.7-2.4) mg/dl Total Bilirubin (0.2-1.0) mg/dl Direct Bilirubin 1.3 H AST (13-39) U/L ALT (7-52) U/L Alkaline Phosphatase (34-104) U/L Ammonia Total Creatine Kinase (26-192) U/L Troponin I High Sens (0-14) pg/ml Total Protein (6.0-8.3) gm/dl Albumin (3.4-5.0) gm/dl Globulin (2.5-4.0) gm/dl Albumin/Globulin Ratio (0.9-2) Lipase (11-82) U/L TSH (0.300-4.500) uIu/ml Random Cortisol mcg/dl Urine Color Urine Appearance (Clear) Urine pH (4.5-7.5) Ur Specific [place] (1.000-1.030) Urine Protein (Negative) Urine Glucose (UA) (Negative) Urine Ketones (Negative) Urine Blood (Negative) Urine Nitrite (Negative) Urine Bilirubin (Negative) Urine Urobilinogen (Negative) Ur Leukocyte Esterase (Negative) Urine WBC (Auto) (0-5) /hpf Urine RBC (Auto) (0-4) /hpf U Hyaline Cast (Auto) (0-5) /lpf U Epithel Cells (Auto) (0-5) /lpf Urine Bacteria (Auto) (Negative) Urine Yeast Nasal Screen MRSA (PCR) (Negative) Gastric Fluid pH Gastric Occult Blood (Negative) Random Vancomycin (10-20) mcg/ml Urine Opiates Screen (Neg) Ur Methadone, Qual (Neg) Urine Barbiturates (Neg) Ur Phencyclidine (PCP) (Neg) U Amphetamin/Meth Scrn (Neg) MDMA (Ecstasy) Screen (Neg) U Benzodiazepines Scrn (Neg) Ur Cocaine Metabolite (Neg) U Marijuana (THC) Screen (Neg) Ethyl Alcohol mg/dL (<10.0) mg/dl SARS-CoV-2, RNA, NAAT (NEGATIVE) Blood Type Blood Type Recheck AB Negative Antibody Screen Crossmatch 04/02/22 04/02/22 04/02/22 Range/Units 13:55 13:15 13:15 WBC (4.8-10.8) K/ul RBC (3.93-5.22) M/uL Hgb (12.0-16.0) g/dl POC Hgb Hct (34.1-44.9) % POC Hct (37-47) % MCV (80.0-100.0) fL MCH (25.0-34.0) pg MCHC (32.0-36.0) g/dL RDW Std Deviation (36.4-46.3) fL RDW Coeff of Jaylin (11.5-14.5) % Plt Count (130-400) K/uL MPV (9.4-12.3) fL Immature Gran % (Auto) % Neut % (Auto) % Lymph % (Auto) % Brooke % (Auto) % Eos % (Auto) % Baso % (Auto) % Neut # (Auto) (1.4-6.5) K/uL Lymph # (Auto) (1.2-3.4) K/uL Brooke # (Auto) (0.24-0.82) K/uL Eos # (Auto) (0-0.50) K/uL Baso # (Auto) (0-0.2) K/uL Immature Gran # (Auto) (0.00-0.02) K/uL Absolute Nucleated RBC (0-0) K/uL Nucleated RBC % (auto) % Macrocytosis PT (9.0-12.0) Seconds INR (0.9-1.1) APTT (21.0-31.0) Seconds PTT Ratio VBG pH (7.36-7.41) VBG pCO2 (38-50) mmHg VBG pO2 mmHg VBG HCO3 mmol/L VBG O2 Saturation % VBG Base Excess mEq/L POC Sodium (135-144) mmol/L Sodium (136-145) mmol/L POC Potassium (3.3-5.0) mmol/L Potassium (3.5-5.1) mmol/L POC Chloride (101-112) mmol/L Chloride (98-107) mmol/L Carbon Dioxide (21-32) mmol/L POC Total CO2 (24-31) mmol/L Anion Gap (3-11) POC Anion Gap (16-25) mmol/L POC BUN (7-18) mg/dl BUN (6-23) mg/dl Creatinine (0.6-1.2) mg/dl POC Creatinine (0.6-1.3) mg/dl Est Cr Clr Drug Dosing Est GFR ( Amer) ml/min Est GFR (Non-Af Amer) ml/min BUN/Creatinine Ratio (10-20) Glucose (70-99(Fasting)) mg/dl POC Glucose (other) (70-99) mg/dl Lactate (0.4-2.0) mmol/L Calcium (8.5-10.1) mg/dl POC Ioniz Calcium Paty (1.12-1.32) mmol/l Ionized Calcium (1.12-1.32) mmol/L Phosphorus (2.5-4.9) mg/dl Magnesium (1.7-2.4) mg/dl Total Bilirubin (0.2-1.0) mg/dl Direct Bilirubin AST (13-39) U/L ALT (7-52) U/L Alkaline Phosphatase (34-104) U/L Ammonia Total Creatine Kinase (26-192) U/L Troponin I High Sens (0-14) pg/ml Total Protein (6.0-8.3) gm/dl Albumin (3.4-5.0) gm/dl Globulin (2.5-4.0) gm/dl Albumin/Globulin Ratio (0.9-2) Lipase (11-82) U/L TSH (0.300-4.500) uIu/ml Random Cortisol mcg/dl Urine Color Dark Yellow Urine Appearance Turbid A (Clear) Urine pH 5.0 (4.5-7.5) Ur Specific [place] 1.018 (1.000-1.030) Urine Protein 1+ H (Negative) Urine Glucose (UA) Negative (Negative) Urine Ketones Trace H (Negative) Urine Blood Trace H (Negative) Urine Nitrite Positive A (Negative) Urine Bilirubin 1+ H (Negative) Urine Urobilinogen Negative (Negative) Ur Leukocyte Esterase 3+ H (Negative) Urine WBC (Auto) >30 H (0-5) /hpf Urine RBC (Auto) 0-4 (0-4) /hpf U Hyaline Cast (Auto) 5-10 H (0-5) /lpf U Epithel Cells (Auto) >30 H (0-5) /lpf Urine Bacteria (Auto) 4+ H (Negative) Urine Yeast Not Reportable Nasal Screen MRSA (PCR) (Negative) Gastric Fluid pH Gastric Occult Blood (Negative) Random Vancomycin (10-20) mcg/ml Urine Opiates Screen Neg (Neg) Ur Methadone, Qual Neg (Neg) Urine Barbiturates Neg (Neg) Ur Phencyclidine (PCP) Neg (Neg) U Amphetamin/Meth Scrn Neg (Neg) MDMA (Ecstasy) Screen Neg (Neg) U Benzodiazepines Scrn Neg (Neg) Ur Cocaine Metabolite Neg (Neg) U Marijuana (THC) Screen Neg (Neg) Ethyl Alcohol mg/dL (<10.0) mg/dl SARS-CoV-2, RNA, NAAT NEGATIVE (NEGATIVE) Blood Type Blood Type Recheck Antibody Screen Crossmatch 04/02/22 04/02/22 04/02/22 Range/Units 13:10 13:07 13:02 WBC (4.8-10.8) K/ul RBC (3.93-5.22) M/uL Hgb (12.0-16.0) g/dl POC Hgb TNP Hct (34.1-44.9) % POC Hct < 15 L* (37-47) % MCV (80.0-100.0) fL MCH (25.0-34.0) pg MCHC (32.0-36.0) g/dL RDW Std Deviation (36.4-46.3) fL RDW Coeff of Jaylin (11.5-14.5) % Plt Count (130-400) K/uL MPV (9.4-12.3) fL Immature Gran % (Auto) % Neut % (Auto) % Lymph % (Auto) % Brooke % (Auto) % Eos % (Auto) % Baso % (Auto) % Neut # (Auto) (1.4-6.5) K/uL Lymph # (Auto) (1.2-3.4) K/uL Brooke # (Auto) (0.24-0.82) K/uL Eos # (Auto) (0-0.50) K/uL Baso # (Auto) (0-0.2) K/uL Immature Gran # (Auto) (0.00-0.02) K/uL Absolute Nucleated RBC (0-0) K/uL Nucleated RBC % (auto) % Macrocytosis PT (9.0-12.0) Seconds INR (0.9-1.1) APTT (21.0-31.0) Seconds PTT Ratio VBG pH (7.36-7.41) VBG pCO2 (38-50) mmHg VBG pO2 mmHg VBG HCO3 mmol/L VBG O2 Saturation % VBG Base Excess mEq/L POC Sodium 139 (135-144) mmol/L Sodium (136-145) mmol/L POC Potassium 3.7 (3.3-5.0) mmol/L Potassium (3.5-5.1) mmol/L POC Chloride 102 (101-112) mmol/L Chloride (98-107) mmol/L Carbon Dioxide (21-32) mmol/L POC Total CO2 18 L (24-31) mmol/L Anion Gap (3-11) POC Anion Gap 24.0 (16-25) mmol/L POC BUN 126 H* (7-18) mg/dl BUN (6-23) mg/dl Creatinine (0.6-1.2) mg/dl POC Creatinine 4.1 H (0.6-1.3) mg/dl Est Cr Clr Drug Dosing Est GFR ( Amer) ml/min Est GFR (Non-Af Amer) ml/min BUN/Creatinine Ratio (10-20) Glucose (70-99(Fasting)) mg/dl POC Glucose (other) 92 (70-99) mg/dl Lactate 6.1 H* (0.4-2.0) mmol/L Calcium (8.5-10.1) mg/dl POC Ioniz Calcium Paty 1.02 L (1.12-1.32) mmol/l Ionized Calcium (1.12-1.32) mmol/L Phosphorus (2.5-4.9) mg/dl Magnesium (1.7-2.4) mg/dl Total Bilirubin (0.2-1.0) mg/dl Direct Bilirubin AST (13-39) U/L ALT (7-52) U/L Alkaline Phosphatase (34-104) U/L Ammonia Total Creatine Kinase (26-192) U/L Troponin I High Sens (0-14) pg/ml Total Protein (6.0-8.3) gm/dl Albumin (3.4-5.0) gm/dl Globulin (2.5-4.0) gm/dl Albumin/Globulin Ratio (0.9-2) Lipase (11-82) U/L TSH (0.300-4.500) uIu/ml Random Cortisol mcg/dl Urine Color Urine Appearance (Clear) Urine pH (4.5-7.5) Ur Specific [place] (1.000-1.030) Urine Protein (Negative) Urine Glucose (UA) (Negative) Urine Ketones (Negative) Urine Blood (Negative) Urine Nitrite (Negative) Urine Bilirubin (Negative) Urine Urobilinogen (Negative) Ur Leukocyte Esterase (Negative) Urine WBC (Auto) (0-5) /hpf Urine RBC (Auto) (0-4) /hpf U Hyaline Cast (Auto) (0-5) /lpf U Epithel Cells (Auto) (0-5) /lpf Urine Bacteria (Auto) (Negative) Urine Yeast Nasal Screen MRSA (PCR) (Negative) Gastric Fluid pH Gastric Occult Blood (Negative) Random Vancomycin (10-20) mcg/ml Urine Opiates Screen (Neg) Ur Methadone, Qual (Neg) Urine Barbiturates (Neg) Ur Phencyclidine (PCP) (Neg) U Amphetamin/Meth Scrn (Neg) MDMA (Ecstasy) Screen (Neg) U Benzodiazepines Scrn (Neg) Ur Cocaine Metabolite (Neg) U Marijuana (THC) Screen (Neg) Ethyl Alcohol mg/dL < 10.0 (<10.0) mg/dl SARS-CoV-2, RNA, NAAT (NEGATIVE) Blood Type Blood Type Recheck Antibody Screen Crossmatch 04/02/22 04/02/22 04/02/22 Range/Units 13:02 13:02 13:02 WBC 20.94 H (4.8-10.8) K/ul RBC 0.96 L (3.93-5.22) M/uL Hgb 3.5 L* (12.0-16.0) g/dl POC Hgb Hct 11.3 L* (34.1-44.9) % POC Hct (37-47) % MCV 117.7 H (80.0-100.0) fL MCH 36.5 H (25.0-34.0) pg MCHC 31.0 L (32.0-36.0) g/dL RDW Std Deviation 62.7 H (36.4-46.3) fL RDW Coeff of Jaylin 15.1 H (11.5-14.5) % Plt Count 228 (130-400) K/uL MPV 11.9 (9.4-12.3) fL Immature Gran % (Auto) 0.8 % Neut % (Auto) 73.5 % Lymph % (Auto) 19.4 % Brooke % (Auto) 6.0 % Eos % (Auto) 0.2 % Baso % (Auto) 0.1 % Neut # (Auto) 15.38 H (1.4-6.5) K/uL Lymph # (Auto) 4.06 H (1.2-3.4) K/uL Brooke # (Auto) 1.26 H (0.24-0.82) K/uL Eos # (Auto) 0.05 (0-0.50) K/uL Baso # (Auto) 0.02 (0-0.2) K/uL Immature Gran # (Auto) 0.17 H (0.00-0.02) K/uL Absolute Nucleated RBC 0.03 H (0-0) K/uL Nucleated RBC % (auto) 0.1 % Macrocytosis Present PT (9.0-12.0) Seconds INR (0.9-1.1) APTT (21.0-31.0) Seconds PTT Ratio VBG pH (7.36-7.41) VBG pCO2 (38-50) mmHg VBG pO2 mmHg VBG HCO3 mmol/L VBG O2 Saturation % VBG Base Excess mEq/L POC Sodium (135-144) mmol/L Sodium 141 (136-145) mmol/L POC Potassium (3.3-5.0) mmol/L Potassium 4.0 (3.5-5.1) mmol/L POC Chloride (101-112) mmol/L Chloride 102 (98-107) mmol/L Carbon Dioxide 19 L (21-32) mmol/L POC Total CO2 (24-31) mmol/L Anion Gap 20 H (3-11) POC Anion Gap (16-25) mmol/L POC BUN (7-18) mg/dl BUN 127 H (6-23) mg/dl Creatinine 3.70 H (0.6-1.2) mg/dl POC Creatinine (0.6-1.3) mg/dl Est Cr Clr Drug Dosing Not Reportable Est GFR ( Amer) 14.1 ml/min Est GFR (Non-Af Amer) 12.1 ml/min BUN/Creatinine Ratio 34.3 H (10-20) Glucose 91 (70-99(Fasting)) mg/dl POC Glucose (other) (70-99) mg/dl Lactate (0.4-2.0) mmol/L Calcium 8.2 L (8.5-10.1) mg/dl POC Ioniz Calcium Paty (1.12-1.32) mmol/l Ionized Calcium (1.12-1.32) mmol/L Phosphorus (2.5-4.9) mg/dl Magnesium 3.1 H (1.7-2.4) mg/dl Total Bilirubin 3.0 H (0.2-1.0) mg/dl Direct Bilirubin TNP AST 104 H (13-39) U/L ALT 31 (7-52) U/L Alkaline Phosphatase 111 H (34-104) U/L Ammonia TNP Total Creatine Kinase 205 H (26-192) U/L Troponin I High Sens 74.0 H* (0-14) pg/ml Total Protein 5.1 L (6.0-8.3) gm/dl Albumin 2.2 L (3.4-5.0) gm/dl Globulin (2.5-4.0) gm/dl Albumin/Globulin Ratio (0.9-2) Lipase 115 H (11-82) U/L TSH (0.300-4.500) uIu/ml Random Cortisol mcg/dl Urine Color Urine Appearance (Clear) Urine pH (4.5-7.5) Ur Specific [place] (1.000-1.030) Urine Protein (Negative) Urine Glucose (UA) (Negative) Urine Ketones (Negative) Urine Blood (Negative) Urine Nitrite (Negative) Urine Bilirubin (Negative) Urine Urobilinogen (Negative) Ur Leukocyte Esterase (Negative) Urine WBC (Auto) (0-5) /hpf Urine RBC (Auto) (0-4) /hpf U Hyaline Cast (Auto) (0-5) /lpf U Epithel Cells (Auto) (0-5) /lpf Urine Bacteria (Auto) (Negative) Urine Yeast Nasal Screen MRSA (PCR) (Negative) Gastric Fluid pH Gastric Occult Blood (Negative) Random Vancomycin (10-20) mcg/ml Urine Opiates Screen (Neg) Ur Methadone, Qual (Neg) Urine Barbiturates (Neg) Ur Phencyclidine (PCP) (Neg) U Amphetamin/Meth Scrn (Neg) MDMA (Ecstasy) Screen (Neg) U Benzodiazepines Scrn (Neg) Ur Cocaine Metabolite (Neg) U Marijuana (THC) Screen (Neg) Ethyl Alcohol mg/dL (<10.0) mg/dl SARS-CoV-2, RNA, NAAT (NEGATIVE) Blood Type Blood Type Recheck Antibody Screen Crossmatch 04/02/22 04/02/22 Range/Units 13:02 13:02 WBC (4.8-10.8) K/ul RBC (3.93-5.22) M/uL Hgb (12.0-16.0) g/dl POC Hgb Hct (34.1-44.9) % POC Hct (37-47) % MCV (80.0-100.0) fL MCH (25.0-34.0) pg MCHC (32.0-36.0) g/dL RDW Std Deviation (36.4-46.3) fL RDW Coeff of Jaylin (11.5-14.5) % Plt Count (130-400) K/uL MPV (9.4-12.3) fL Immature Gran % (Auto) % Neut % (Auto) % Lymph % (Auto) % Brooke % (Auto) % Eos % (Auto) % Baso % (Auto) % Neut # (Auto) (1.4-6.5) K/uL Lymph # (Auto) (1.2-3.4) K/uL [place] # (Auto) (0.24-0.82) K/uL Eos # (Auto) (0-0.50) K/uL Baso # (Auto) (0-0.2) K/uL Immature Gran # (Auto) (0.00-0.02) K/uL Absolute Nucleated RBC (0-0) K/uL Nucleated RBC % (auto) % Macrocytosis PT 19.9 H (9.0-12.0) Seconds INR 1.9 H (0.9-1.1) APTT 27.0 (21.0-31.0) Seconds PTT Ratio 1.0 VBG pH (7.36-7.41) VBG pCO2 (38-50) mmHg VBG pO2 mmHg VBG HCO3 mmol/L VBG O2 Saturation % VBG Base Excess mEq/L POC Sodium (135-144) mmol/L Sodium (136-145) mmol/L POC Potassium (3.3-5.0) mmol/L Potassium (3.5-5.1) mmol/L POC Chloride (101-112) mmol/L Chloride (98-107) mmol/L Carbon Dioxide (21-32) mmol/L POC Total CO2 (24-31) mmol/L Anion Gap (3-11) POC Anion Gap (16-25) mmol/L POC BUN (7-18) mg/dl BUN (6-23) mg/dl Creatinine (0.6-1.2) mg/dl POC Creatinine (0.6-1.3) mg/dl Est Cr Clr Drug Dosing Est GFR ( Amer) ml/min Est GFR (Non-Af Amer) ml/min BUN/Creatinine Ratio (10-20) Glucose (70-99(Fasting)) mg/dl POC Glucose (other) (70-99) mg/dl Lactate (0.4-2.0) mmol/L Calcium (8.5-10.1) mg/dl POC Ioniz Calcium Paty (1.12-1.32) mmol/l Ionized Calcium (1.12-1.32) mmol/L Phosphorus (2.5-4.9) mg/dl Magnesium (1.7-2.4) mg/dl Total Bilirubin (0.2-1.0) mg/dl Direct Bilirubin AST (13-39) U/L ALT (7-52) U/L Alkaline Phosphatase (34-104) U/L Ammonia Total Creatine Kinase (26-192) U/L Troponin I High Sens (0-14) pg/ml Total Protein (6.0-8.3) gm/dl Albumin (3.4-5.0) gm/dl Globulin (2.5-4.0) gm/dl Albumin/Globulin Ratio (0.9-2) Lipase (11-82) U/L TSH (0.300-4.500) uIu/ml Random Cortisol mcg/dl Urine Color Urine Appearance (Clear) Urine pH (4.5-7.5) Ur Specific [place] (1.000-1.030) Urine Protein (Negative) Urine Glucose (UA) (Negative) Urine Ketones (Negative) Urine Blood (Negative) Urine Nitrite (Negative) Urine Bilirubin (Negative) Urine Urobilinogen (Negative) Ur Leukocyte Esterase (Negative) Urine WBC (Auto) (0-5) /hpf Urine RBC (Auto) (0-4) /hpf U Hyaline Cast (Auto) (0-5) /lpf U Epithel Cells (Auto) (0-5) /lpf Urine Bacteria (Auto) (Negative) Urine Yeast Nasal Screen MRSA (PCR) (Negative) Gastric Fluid pH Gastric Occult Blood (Negative) Random Vancomycin (10-20) mcg/ml Urine Opiates Screen (Neg) Ur Methadone, Qual (Neg) Urine Barbiturates (Neg) Ur Phencyclidine (PCP) (Neg) U Amphetamin/Meth Scrn (Neg) MDMA (Ecstasy) Screen (Neg) U Benzodiazepines Scrn (Neg) Ur Cocaine Metabolite (Neg) U Marijuana (THC) Screen (Neg) Ethyl Alcohol mg/dL (<10.0) mg/dl SARS-CoV-2, RNA, NAAT (NEGATIVE) Blood Type AB Negative Blood Type Recheck Antibody Screen NEGATIVE Crossmatch See Detail
[2022-04-03 09:32] LABS: INR 1.5 (0.9-1.1); Prothrombin Time 16.1 Seconds (9.0-12.0)
--- NOTE | 2022-04-03 10:10 | Critical Care Progress Note ---
Date of Service April 03, 2022 Assessment & Plan (1) Acute blood loss anemia: Plan: Reason Critically Ill: 66-year-old female admitted for MICHA, with severe symptomatic anemia and encephalopathy. Neuro CAM ICU: POSITIVE Sedation: Versed, Fentanyl Analgesia: -Acute encephalopathy: ammonia mildly elevated on admission. Repeat level normal. Head CT negative for intracranial process. * MRI, EEG. Cardiac -Hypotension: MAP-61. Low 90s systolic * Phenylephrine drip per ICU protocol Respiratory -Multilobar pneumonia: as seen on chest CT. Leukocytosis increased vs. admission. Now on mechanical ventilation. * Zosyn stopped. Now on ceftriaxone GI -Cirrhosis/Hepatic encephalopathy: repeat ammonia normal. AST/ALT pattern suggestive of alcoholic hepatic process * Ceftriaxone * Lactulose 30 mg TID * NPO RENAL/LYTES -MICHA:likely prerenal -Hypokalemia, hyponatremia: not profound. -Elevated phosphate likely 2/2 to MICHA. Will trend * Hepatic function labs qAM * Trend electrolytes, replete as needed, strict I/Os. ENDO -ICU hyperglycemia protocol HEME -Supratherapeutic INR: received vitamin K 5mg -Anemia: improving * Trend PT/INR * H&H q6h ID Multilobar PNA, SBP prophylaxis * Ceftriaxone * Monitor fever curve. LINES/IV ACCESS PIVs intact. DVT PROPHYLAXIS - chemical prophylaxis contraindicated Thank you for allowing us to be part of this patient's care. Please refer to Dr. Sylvester's documentation for any further recommendations. (2) Encephalopathy acute: (3) GI bleed: (4) MICHA (acute kidney injury): (5) UTI (urinary tract infection): (6) Leukocytosis: (7) Elevated troponin: (8) Cirrhosis: Admission and Anticipated Discharge Date Admission Date: April 02, 2022 Supervising Physician Co-Signing Physician Notes Dr. De La Vega was resident physician during care of patient. I separately evaluated patient for posey portions of the history and the exam. I was present during the critical portion of medical decision making, and I discussed the case with the resident. I generally agree with the findings and plan. Ongoing encephalopathy, suspect hepatic encephalopathy however cannot exclude additional etiologies. Lumbar puncture contraindicated in supratherapeutic INR, give additional 5 mg IV vitamin K. Ongoing blood loss will intubate to facilitate work-up to include MRI as well as endoscopy for ongoing blood losses. We cannot adequately treat the patient with lactulose for the hepatic encephalopathy with the ongoing blood loss. Discussed with nephrology, poor candidate for renal replacement therapy will attempt to contact son and elucidate goals of care. Continue Zosyn for antibiotic coverage. Staff reported there is a son listed in [facility] chart: Aman [phone], I attempted to contact this number, no answer and mailbox not set up and was disconnected. Will continue with emergent and 2 physician consent. Additional family members presented to the hospital. There is a sister, her parents are living, she is legally, there is 1 adult son however he is incarcerated presently. Family reports she has been extremely private, has not seen a physician in years, no reported hospitalization since she birthed her son. Only surgical history is a tonsillectomy. 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 They report heavy alcohol use and probable dependency. Reported use is 1-2 bottles of wine daily and probable intoxication by 9 AM frequently. Patient reported she was attempting to quit alcohol. Family reports she is a fiercely independent woman and would not tolerate anything less than living independently. She would not want heroic measures undertaken in event of cardiac arrest, she would not want a trial of dialysis. We discussed risks and benefits of dialysis, indicated it is impossible to tell who may need permanent dialysis, and discussions it was felt even temporary dialysis would not be in line with the patient's long-term wishes. Family has provided consent for advanced vascular access, arterial line monitoring, bronchoscopy, intubation mechanical ventilation, and blood product administration. We discussed the findings with gastroenterology after the endoscopy. Discontinue octreotide, continue PPI and ceftriaxone. We will be obtaining a MRI. Also ordering EEG to evaluate for nonconvulsive status epilepticus. Acute alcohol withdraw, delirium tremens is certainly in the differential, she is currently on a Versed infusion for sedation with mechanical ventilation. Patient was discussed in multidisciplinary rounds. I have personally spent 125 minutes of critical care time in the direct management of this patient. This is a life/limb threatening event. This includes time spent evaluating patient, direct bedside care, chart review, placing orders, interpretation of diagnostic studies, discussion with consultants, patient, and/or family members regarding treatment decisions, as well as other required patient management activities. This time is exclusive of all separately billable procedures, and teaching time and separate from and in addition to any other critical care service time. Subjective Patient agitated overnight (per nursing, yelled obscenities but unable to respond to questions, otherwise demonstrate alertness or orientation). Patient was also bradycardic in the 50s for some time overnight. This morning, she appears less agitated but moans/groans intermittently. She does not appear alert oriented. She remains unresponsive to vocal commands or questions. After discussion with ICU attending, patient will likely be intubated. Review of Systems Review of Systems: All systems reviewed & are unremarkable except as noted in HPI & below Physical Exam Physical Exam: General: Asleep. In no acute distress. HEENT: PERRLA. NG tube present. O2 cannula. Moist mucosal membranes. CV: Regular rate and rhythm. Normal S1 and S2. No murmurs gallops or rubs. Respiratory: Minimal bibasilar crackles. No rhonchi or wheezes. Abdomen: Soft, nondistended abdomen. No bruits heard on auscultation. Extremities: Bilateral pedal edema Neuro: Responds to painful stimuli Results & Data Results & Data ([facility]) Vital Signs (Past 12 Hours) Vital Signs Temp Pulse Resp BP Pulse Ox O2 Del Method 04/03/22 07:37 Room Air 04/03/22 06:00 75 19 112/93 86 L 04/03/22 05:45 73 25 H 131/61 86 L 04/03/22 05:30 56 L 12 112/68 99 04/03/22 00:00 80 04/03/22 05:15 57 L 12 105/68 98 04/03/22 05:00 58 L 12 110/69 98 04/03/22 04:45 60 12 92/63 L 100 04/03/22 00:00 36.7 C 90 15 110/57 L 93 04/02/22 23:30 36.7 C 77 20 112/69 97 04/02/22 23:15 36.7 C 71 20 101/49 L 97 04/02/22 23:00 36.7 C 70 20 106/55 L 98 04/02/22 22:45 36.7 C 70 22 99/46 L 97 04/02/22 22:30 36.6 C 72 22 107/50 L 97 04/02/22 22:15 36.6 C 75 29 H 108/57 L 96 04/02/22 22:00 36.5 C 77 25 H 109/74 95 04/03/22 04:30 61 16 105/61 99 04/03/22 04:15 64 14 102/75 69 L 04/03/22 04:00 74 15 139/79 04/03/22 03:45 34.1 C L 70 10 L 129/72 94 04/03/22 03:30 34.0 C L 81 20 124/87 95 04/03/22 03:15 32.4 C L 81 21 122/75 93 04/03/22 03:00 26.5 C L 78 24 111/50 L 96 04/03/22 02:45 35.6 C L 76 31 H 88/42 L 98 04/03/22 02:30 36.0 C L 66 14 88/54 L 98 04/03/22 02:15 36.0 C L 69 26 H 96/62 L 98 04/03/22 02:00 35.5 C L 79 24 123/68 98 04/03/22 01:45 36.5 C 80 26 H 109/66 99 04/03/22 01:30 36.4 C L 82 26 H 97/60 L 96 04/03/22 01:15 36.6 C 81 21 99/67 L 98 04/03/22 01:00 35.7 C L 80 23 110/57 L 96 04/03/22 00:45 36.6 C 80 17 98 04/03/22 00:30 36.7 C 81 22 139/37 L 98 04/03/22 04:39 36.5 C 62 12 105/61 98 04/03/22 04:16 36.5 C 62 16 105/61 99 04/03/22 03:45 36.5 C 71 11 L 129/72 94 04/03/22 03:15 36.5 C 81 23 111/50 L 95 04/03/22 03:00 36.5 C 79 24 111/64 95 04/03/22 02:46 36.5 C 78 22 111/64 95 04/03/22 02:31 36.0 C L 78 19 111/64 96 04/03/22 02:44 35.8 C L 76 30 H 88/54 L 97 04/03/22 02:40 36.0 C L 71 21 88/54 L 97 04/03/22 02:10 35.9 C L 72 22 122/68 96 04/03/22 02:06 35.8 C L 80 23 123/68 97 04/02/22 20:45 36.6 C 75 21 95/55 L 98 04/02/22 20:30 36.7 C 76 14 89/52 L 97 04/02/22 20:15 36.7 C 80 15 108/59 L 97 04/02/22 20:24 36.4 C L 77 15 89/52 L 97 Resident Activity Tracking Resident Involvement: Resident Care Provided Care Provided: Adult Hospital Medicine
[2022-04-03] MEDS ORDERED: RAPID SEQUENCE INDUCTION BAG ONE (10:16)
[2022-04-03] MEDS ORDERED: fentaNYL citrate 2,500 MCG/250 ML BAG IV ONE (10:16)
[2022-04-03] MEDS ORDERED: MIDAZOLAM HCL 125MG/250ML D5W ONE (10:17)
[2022-04-03] MEDS ORDERED: fentaNYL BOLUS from BAG IV PRN (10:30)
[2022-04-03] MEDS ORDERED: DEXTROSE 5% IV SCH (10:30)
[2022-04-03] MEDS ORDERED: PHENYLEPHRINE HCL IV SCH (10:30)
[2022-04-03] MEDS ORDERED: MIDAZOLAM BOLUS FROM BAG IV PRN (10:31)
[2022-04-03 10:39] LABS: Hematocrit (blood only) 26.4 % (34.1-44.9)
--- NOTE | 2022-04-03 10:41 | Procedure Note ---
Procedure Note Date of Service April 03, 2022 Note Procedure Date: Noted above Procedure: Endotracheal intubation Pre-procedure Diagnosis: Acute encephalopathy inability to complete medical evaluation Post-procedure Diagnosis: same as above Prior to Procedure: Informed Consent: emergent consent implied Attending Staff: Ambrocio Sylvester DO The identity of the patient was confirmed and a bedside time out was performed. Description of Procedure: Patient was evaluated and required intubation to facilitate emergent/urgent medical treatment and evaluation. The patient was prepared in the usual fashion. A 3 video laryngoscope was used. A 8 mm inner diameter endotrachial tube was pl aced endotracheally to 20 cm at the teeth. A grade 1 view was obtained. The endotracheal tube was noted to pass through the vocal cords. Chest rise was bilateral. Bilateral breath sounds were heard without air sounds in the abdomen. Mist was noted in the endotracheal tube. End-tidal CO2 measurement was positive. Chest x-ray shows proper endotracheal tube placement. Complications: None Findings: Not applicable Specimens: Not applicable Estimated blood loss: Zero Coding CPT Codes Resuscitation - Resuscitation: [id number] Endotracheal Intubation, emergency ([id number]) [facility] Procedure Codes (Charges) Resuscitation Resuscitation: 94587 Endotracheal Intubation, emergency
[2022-04-03] MEDS: MIDAZOLAM HCL 125 MG/250 ML BAG IV SCH (10:47)
[2022-04-03] MEDS: NEW Std Conc--fentaNYL 2,500mcg/250mL NSS **10mcg/mL IV SCH (10:47)
[2022-04-03] MEDS: DEXTROSE 5% IV SCH ×2 (10:56→20:10)
[2022-04-03] MEDS: PHENYLEPHRINE HCL IV SCH ×2 (10:56→20:10)
--- NOTE | 2022-04-03 11:04 | XRay Report ---
XR chest 1V portable CLINICAL HISTORY: lines COMPARISON STUDY: Chest CT angiography of April 02, 2022. FINDINGS: Tip of endotracheal tube is 9 mm above the kay. Tip of nasogastric tube is at least with in the body of the stomach. Tip of right internal jugular central line projects over the mid SVC. The re is no pneumothorax. No pleural effusions identified. Multifocal airspace opacities, greatest withi n the right upper lobe and left lower lobe have progressed. Cardiac size is normal. Mediastinal conto urs are normal. IMPRESSION: 1. Tip of endotracheal tube 9 mm above the kay. 2. No pneumothorax. 3. Progression of multifocal airspace opacities which favor pneumonia however alveolar pulmonary misael a could appear similar. ACT 112: Negative or not required by law. Electronically signed by: Franklyn Finney M.D. 04/03/2022 11:01 AM
[2022-04-03 11:41] LABS: BUN Creatinine Ratio 31.6 (10-20); Calcium 8.2 mg/dl (8.5-10.1); Creatinine Clr Calc Pharmacy 13.2 ml/min; Est GFR (African American) 13.5 ml/min; Est GFR (Non-African American) 11.6 ml/min; Potassium 3.3 mmol/L (3.5-5.1)
--- NOTE | 2022-04-03 11:45 | History & Physical Report ---
Date of Service April 03, 2022 Assessment & Plan Admission and Anticipated Discharge Date Admission Date: April 02, 2022 History of Present Illness Chief Complaint: EGD Primary Care Provider: NO PCP Found down- planning for egd for assessement of anemia and blood loss.Intubated. Father/mother/ sister present in waiting area. Allergies Allergy/AdvReac Type Severity Reaction Status Date / Time Sulfa (Sulfonamide Allergy Severe EYES AND Unverified 04/02/22 17:06 Antibiotics) THROAT SWELLING Home Medications Medication Instructions Recorded Confirmed Type fluticasone propionate 50 1 spray intranasal UD 04/02/22 04/02/22 History mcg/actuation nasal spray,suspension hydrochlorothiazide 12.5 mg tablet 12.5 mg PO DAILY 04/02/22 04/02/22 History loratadine 10 mg tablet 10 mg PO DAILY 04/02/22 04/02/22 History Past Med/Surg History Medical History Medical history unknown Unknown family medical history Surgical History (Updated 04/02/22 @ 19:04 by Celine Simons DO) Surgical history unknown Family History (Updated 04/02/22 @ 19:05 by Celine Simons DO) Other No known problems Social History Smoking Status: Unknown if ever smoked Preferred Language: Arabic 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 Beliefs That Will Affect Care: None Current Living Situation: Alone Current Living Situation Comment: apartment Feels Safe at Home: Declines to Answer Assistive Devices: None Review of Systems All systems reviewed & are unremarkable except as noted in HPI & below Results & Data ([facility]) Vital Signs (Past 12 Hours) Vital Signs Temp Pulse Resp BP Pulse Ox O2 Del Method FiO2 04/03/22 11:13 66 16 94 30 04/03/22 07:37 Room Air 04/03/22 06:00 75 19 112/93 86 L 04/03/22 05:45 73 25 H 131/61 86 L 04/03/22 05:30 56 L 12 112/68 99 04/03/22 00:00 80 04/03/22 05:15 57 L 12 105/68 98 04/03/22 05:00 58 L 12 110/69 98 04/03/22 04:45 60 12 92/63 L 100 04/03/22 00:00 36.7 C 90 15 110/57 L 93 04/03/22 04:30 61 16 105/61 99 04/03/22 04:15 64 14 102/75 69 L 04/03/22 04:00 74 15 139/79 04/03/22 03:45 34.1 C L 70 10 L 129/72 94 04/03/22 03:30 34.0 C L 81 20 124/87 95 04/03/22 03:15 32.4 C L 81 21 122/75 93 04/03/22 03:00 26.5 C L 78 24 111/50 L 96 04/03/22 02:45 35.6 C L 76 31 H 88/42 L 98 04/03/22 02:30 36.0 C L 66 14 88/54 L 98 04/03/22 02:15 36.0 C L 69 26 H 96/62 L 98 04/03/22 02:00 35.5 C L 79 24 123/68 98 04/03/22 01:45 36.5 C 80 26 H 109/66 99 04/03/22 01:30 36.4 C L 82 26 H 97/60 L 96 04/03/22 01:15 36.6 C 81 21 99/67 L 98 04/03/22 01:00 35.7 C L 80 23 110/57 L 96 04/03/22 00:45 36.6 C 80 17 98 04/03/22 00:30 36.7 C 81 22 139/37 L 98 04/03/22 04:39 36.5 C 62 12 105/61 98 04/03/22 04:16 36.5 C 62 16 105/61 99 04/03/22 03:45 36.5 C 71 11 L 129/72 94 04/03/22 03:15 36.5 C 81 23 111/50 L 95 04/03/22 03:00 36.5 C 79 24 111/64 95 04/03/22 02:46 36.5 C 78 22 111/64 95 04/03/22 02:31 36.0 C L 78 19 111/64 96 04/03/22 02:44 35.8 C L 76 30 H 88/54 L 97 04/03/22 02:40 36.0 C L 71 21 88/54 L 97 04/03/22 02:10 35.9 C L 72 22 122/68 96 04/03/22 02:06 35.8 C L 80 23 123/68 97 Code Status & VTE Plan VTE Prophylaxis Plan VTE Prophylaxis will be ordered: Yes Supervising Physician Co-Signing Physician Notes EGD for evaluation of anemia and blood loss.
--- NOTE | 2022-04-03 12:01 | GI REPORT ---
Patient Name: Nelly Christopher Procedure Date: 04/03/2022 11:40 AM Date of : 1955 Admit Type: Inpatient Age: 66 Gender: Female Attending MD: Nenita Lee M.d. Procedure: Upper GI endoscopy Providers: Nenita Lee M.d. Referring MD: Kaylen Mack Md, Itz Sylvester Indications: Anemia Medicines: Fentanyl, Versed drips Complications: No immediate complications. Estimated Blood Loss: Estimated blood loss: none. Procedure: Pre-Anesthesia Assessment: - Patient identification and proposed procedure were verified prior to the procedure by the physician, the nurse and the anesthesiologist. The procedure was verified in the pre-procedure area. - Prior to the procedure, a History and Physical was performed, and patient medications, allergies and sensitivities were reviewed. The patient's tolerance of previous anesthesia was reviewed. - The risks and benefits of the procedure and the sedation options and risks were discussed with the patient. All questions were answered and informed consent was obtained. After obtaining informed consent, the endoscope was passed under direct vision. Throughout the procedure, the patient's blood pressure, pulse, and oxygen saturations were monitored continuously. The Endoscope was introduced through the mouth and advanced to the. The upper GI endoscopy was accomplished without difficulty. The patient tolerated the procedure well. Findings: LA Grade D (one or more mucosal breaks involving at least 75% of esophageal circumference) esophagitis without bleeding was found. One non-bleeding superficial gastric ulcer with no stigmata of bleeding was found in the gastric antrum. The examined stomach otherwise appeared normal. One non-bleeding superficial duodenal ulcer with no stigmata of bleeding was found in the duodenal bulb. The duodenal bulb otherwise appeared normal in addition to the second portion of the duodenum, third portion, and fourth portion of the duodenum were normal. Impression: - LA Grade D esophagitis. - Non-bleeding gastric ulcer with no stigmata of bleeding. - Normal stomach. - Non-bleeding duodenal ulcer with no stigmata of bleeding. - Normal duodenal bulb, second portion of the duodenum, third portion of the duodenum and fourth portion of the duodenum. Recommendation: - Would treat with an IV PPI to treat esophagitis. - No signs of an active variceal bleed or active ulcer bleeding. - She is on abx for a suspected uti and pna - would continue. Nenita Lee M.D. Nenita Lee M.d. 04/03/2022 12:01:10 PM This report has been signed electronically. Note Initiated On: 04/03/2022 11:40 AM Number of Addenda: 0 I attest to the content of the Intraoperative Record and orders documented therein, exceptions below {[id number]}
--- NOTE | 2022-04-03 12:03 | Communication Note ---
Date of Service: April 03, 2022 EGD completed at bedside in the ICU. She is on two drips - fentanyl and versed. Patient's family - father, mother, and sister were seen prior to the procedure and agreeable to moving forward with the endoscopy. EGD with findings of severe esophagitis, no evidence of ev or gastric varices, ng tube was present, superficial antral gastric ulcer and duodenal bulb ulcer. Would continue IV PPI and abx. Consider stopping octreotide as no current signs of variceal bleeding.
--- NOTE | 2022-04-03 12:04 | Communication Note ---
Date of Service: April 03, 2022 Attempted to discuss endoscopic findings with family - no family present in the waiting room post procedure. TT sent to care team with findings of endoscopy and recs.
--- NOTE | 2022-04-03 12:22 | Billing Data ---
Date of Service April 03, 2022 Coding Level of Care Code Critical Care ea addt'l 30 min
[2022-04-03] MEDS ORDERED: ROCURONIUM BROMIDE 10 MG/ML 5 ML VIAL IV ONE (13:24)
--- NOTE | 2022-04-03 13:40 | Nephrology Consultation ---
Date of Consultation April 03, 2022 Assessment & Plan (1) MICHA (acute kidney injury): Likley 2/ Ischemic/ Toxic ATN. Possible etiologies include liver disease/ sepsis. - UOP has been poor, although the K is safe. - She is still on 2 pressors for a decent pressure support. - She is too hemodynamically unstable to bestarted on IHD,CRRT would be the modality needed here. - Care co - ordinated with ICU attending, she is not a dialysis candidate as discussed with the family ( she does not want trial of dialysis) - Continue with conservative measure,IV fluids , blood products , renally dosed Abx. - Recommend trial of lasix( 80 mg iV) if BP permits (2) Encephalopathy acute: (3) Acute blood loss anemia: (4) Cirrhosis: (5) Lactic acidosis: History of Present Illness Reason for Consultation: Acute kidney injury. Attending Physician: Kaylen Mack MD History of Present Illness History as per H&P and clinical and staff documentations. 66 yo F without unknown past medical history, who was brought to the ER by EMS.She was found to combative and agitated. ER labs were significant for Severe Anemia (Hemoglobin of 3.5), raised (20.94) MICHA with BUN/ scr- 127/3.7 with rasied, lactic acid. GI bleed was suspected and she received multiple PRBC and blood products.CT abdomen was suggestive of Liver cirrhosis, however EGD was negative for varices. She was on inotropic support, UOP has been in the Oligoanuric range,2+pedal edema noted bilaterally. Allergies Allergy/AdvReac Type Severity Reaction Status Date / Time Sulfa (Sulfonamide Allergy Severe EYES AND Unverified 04/02/22 17:06 Antibiotics) THROAT SWELLING Home Medications Medication Instructions Recorded Confirmed Type fluticasone propionate 50 1 spray intranasal UD 04/02/22 04/02/22 History mcg/actuation nasal spray,suspension hydrochlorothiazide 12.5 mg tablet 12.5 mg PO DAILY 04/02/22 04/02/22 History loratadine 10 mg tablet 10 mg PO DAILY 04/02/22 04/02/22 History Patient History Medical History Medical history unknown Unknown family medical history Surgical History (Updated 04/02/22 @ 19:04 by Celine Simons DO) Surgical history unknown Family History (Updated 04/02/22 @ 19:05 by Celine Simons DO) Other No known problems Social History Smoking Status: Unknown if ever smoked Preferred Language: Serbian Communication Ability: 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 Head: Normocephalic, atraumatic ENT:PERRL, no pharyngeal exudate, mucous membranes dry Chest: Coarse breath sounds bilaterally with rales% Cardiac: no murmur, no JVD, normal peripheral pulsesl Abdominal: +distended but soft, no fluid wave, nontender to palpation, no rebound or guarding Extremities: Normal inspection, 2+ peripheral pitting edema up to thighs bilaterally Skin: jaundiced Results & Data ([facility]) Vital Signs (Past 12 Hours) Vital Signs Temp Pulse Resp BP Pulse Ox O2 Del Method FiO2 04/03/22 12:45 34.9 C L 62 17 96 Mechanical Vent 0.35 04/03/22 12:45 91/51 L 04/03/22 12:31 34.9 C L 62 18 97 04/03/22 12:30 93/52 L 04/03/22 12:29 34.9 C L 62 19 96 04/03/22 12:15 34.9 C L 64 16 97 04/03/22 12:15 92/50 L 04/03/22 12:00 34.9 C L 69 16 95 04/03/22 12:00 99/52 L 04/03/22 11:45 34.8 C L 64 16 93 04/03/22 11:45 85/49 L 04/03/22 11:30 34.8 C L 65 16 95 04/03/22 11:30 77/45 L 04/03/22 11:15 34.9 C L 65 16 94 04/03/22 11:15 78/45 L 04/03/22 11:00 34.9 C L 68 20 94 04/03/22 11:00 88/47 L 04/03/22 10:45 35.1 C L 77 7 L 94 04/03/22 10:45 105/54 L 04/03/22 10:44 35.1 C L 83 10 L 95 04/03/22 10:44 107/56 L 04/03/22 10:42 120/62 04/03/22 10:42 35.1 C L 82 17 96 04/03/22 10:40 130/68 04/03/22 10:40 35.1 C L 88 3 L 100 04/03/22 10:38 35.1 C L 85 16 99 04/03/22 10:38 124/67 04/03/22 10:36 102/70 04/03/22 10:36 35.1 C L 75 17 77 L 04/03/22 10:34 35.1 C L 77 23 92 04/03/22 10:34 120/87 04/03/22 10:33 35.1 C L 79 17 94 04/03/22 10:33 116/94 04/03/22 10:31 35.1 C L 76 17 95 04/03/22 10:31 119/83 04/03/22 10:30 35.1 C L 77 21 83 L 04/03/22 10:28 35.1 C L 77 27 H 92 04/03/22 10:28 113/80 04/03/22 10:26 35.1 C L 76 22 92 04/03/22 10:26 118/76 04/03/22 10:24 35.1 C L 77 19 92 04/03/22 10:24 122/76 04/03/22 10:15 35.1 C L 75 17 92 04/03/22 10:15 122/74 04/03/22 10:00 35.1 C L 71 21 90 04/03/22 10:00 81/51 L 04/03/22 09:45 35.1 C L 63 15 91 04/03/22 09:45 98/65 L 04/03/22 09:30 35.1 C L 68 14 93 04/03/22 09:30 107/64 04/03/22 11:13 66 16 94 30 04/03/22 07:37 Room Air 04/03/22 06:00 75 19 112/93 86 L 04/03/22 05:45 73 25 H 131/61 86 L 04/03/22 05:30 56 L 12 112/68 99 04/03/22 05:15 57 L 12 105/68 98 04/03/22 05:00 58 L 12 110/69 98 04/03/22 04:45 60 12 92/63 L 100 04/03/22 04:30 61 16 105/61 99 04/03/22 04:15 64 14 102/75 69 L 04/03/22 04:00 74 15 139/79 04/03/22 03:45 34.1 C L 70 10 L 129/72 94 04/03/22 03:30 34.0 C L 81 20 124/87 95 04/03/22 03:15 32.4 C L 81 21 122/75 93 04/03/22 03:00 26.5 C L 78 24 111/50 L 96 04/03/22 02:45 35.6 C L 76 31 H 88/42 L 98 04/03/22 02:30 36.0 C L 66 14 88/54 L 98 04/03/22 02:15 36.0 C L 69 26 H 96/62 L 98 04/03/22 02:00 35.5 C L 79 24 123/68 98 04/03/22 01:45 36.5 C 80 26 H 109/66 99 04/03/22 01:30 36.4 C L 82 26 H 97/60 L 96 04/03/22 04:39 36.5 C 62 12 105/61 98 04/03/22 04:16 36.5 C 62 16 105/61 99 04/03/22 03:45 36.5 C 71 11 L 129/72 94 04/03/22 03:15 36.5 C 81 23 111/50 L 95 04/03/22 03:00 36.5 C 79 24 111/64 95 04/03/22 02:46 36.5 C 78 22 111/64 95 04/03/22 02:31 36.0 C L 78 19 111/64 96 04/03/22 02:44 35.8 C L 76 30 H 88/54 L 97 04/03/22 02:40 36.0 C L 71 21 88/54 L 97 04/03/22 02:10 35.9 C L 72 22 122/68 96 04/03/22 02:06 35.8 C L 80 23 123/68 97 Laboratory Results 04/03/22 10:12 04/03/22 10:59
--- NOTE | 2022-04-03 15:12 | Magnetic Resonance Report ---
Brain MRI WITHOUT CONTRAST HISTORY: agitation, altered mental status TECHNIQUE: Multiplanar multisequence MRI of the brain was performed without the use of contrast. COMPARISON STUDY: Head CT 04/02/2022. FINDINGS: There is no mass, hematoma, midline shift, or acute infarct. The paranasal sinuses are karina r. The ventricles and sulci demonstrate mild age-related involutional changes. Scattered foci of T2 h yperintensity seen within the periventricular and subcortical white matter are nonspecific but sugges tive of mild microvascular ischemic changes. The major vascular flow voids at the skull base are well -maintained. Small amount of fluid within the nasopharynx is likely related to the intubation. This i s partially visualized right-sided nasogastric tube. Bilateral lens replacement is noted. Near comple te opacification of the left mastoid air cells. IMPRESSION: No acute intracranial abnormality. Scattered foci of T2 hyperintensity seen within the periventricula r and subcortical white matter are nonspecific but favor mild microvascular ischemic change. ACT 112: Negative or not required by law. Electronically signed by: Louie White M.D. 04/03/2022 3:09 PM
[2022-04-03] MEDS: LACTULOSE SYRUP 30 GM/45 ML UDP PO SCH ×2 (15:39→21:46)
--- NOTE | 2022-04-03 15:54 | Hospitalist Progress Note ---
Date of Service April 03, 2022 Assessment & Plan (1) Encephalopathy acute: (2) GI bleed: (3) Severe sepsis with septic shock: Plan 66-year-old lady with no known PMH/FH/SH presented to the ED 04/02 after she was found encephalopathic in her home by her landlord and found to be in severe sepsis with septic shock and multiorgan failure at presentation in the ED. Of note, patient was brought to the hospital by EMS after landlord called them due to not seeing the patient for about 3 days and hearing her scream from within the apartment complex, when EMS arrived on the scene she was found on the floor screaming/agitated and was combative. She is being managed for the following: Severe sepsis with septic shock POA Multiorgan failure Acute renal failure Metabolic encephalopathy Multilobar pneumonia UTI Likely GI bleed/profound anemia POA Elevated troponin: Likely secondary to acute distress, EKG with ST and T wave abnormality. At presentation: Hb 3.5, WBC 20.94K, platelet 228K, NA 141, K4.0, creatinine 3.7, BUN 127, lactic acid 6.1, INR 1.9, NH3 115, T bili 3.0, AST 104, ALT 31, ALP 111, CK2 05, troponin 74. Lipase 115. Also at presentation, hypotensive worsening to 70s/40s, tachycardic, received blood transfusion. Was on room air with O2 sats in the 90s. She had coarse breath sounds and imaging showed pneumonia. UA suggestive of UTI. CTAP suggestive of alveolar pulmonary edema and cirrhotic liver. Toxicology screen negative. COVID-negative. Gastric occult blood positive. MRSA negative. Admitting urine culture GNB on preliminary, follow final results. Admitting blood culture 04/02, follow final results. Admitting imagings: Head CT: No acute findings. CXR: Left basilar opacity and right apical opacity suggestive of pneumonia. CTAP: Cirrhotic liver with extensive hypodense foci throughout the liver with capsular retraction, findings suggestive of hepatic asteatosis versus neoplastic etiology. A liver protocol CT is recommended on nonemergent basis. Anasarca. Right colon wall thickening suggestive of nonspecific colitis. Cholelithiasis. Lingular and left lower lobe airspace opacity which could reflect pneumonia or alveolar pulmonary edema. C-spine CT: No acute findings, osteopenia. CT chest: Multifocal pneumonia. Follow-up to resolution recommended. 04/03 brain MRI: No acute abnormality. Scattered foci of T2 hyperintensity seen within the periventricular and subcortical white matter nonspecific but favor mild microvascular ischemic change. Patient is status post 4 unit PRBC transfusion and 1 unit fresh frozen plasma transfusion. H&H per ICU team. Patient needed multiple fluid resuscitation and pressor support, currently intubated [04/03/2022 AM] likely secondary to pulmonary edema. Patient on Rocephin 04/03. Patient requiring Burke-Synephrine and vasopressin. Patient on octreotide drip and pantoprazole drip. Patient in ICU care, per central office operator. GI consulted, likely liver failure. For GI bleed. Nephrology on board for renal failure. DVT prophylaxis: Teds/SCDs, no chemical prophylaxis in the setting of acute GI bleed Disposition: ICU, prognosis very poor. Admission and Anticipated Discharge Date Admission Date: April 02, 2022 Subjective Patient seen and examined at bedside as a follow-up of severe sepsis with septic shock POA, lactic acidosis POA, UTI, pneumonia, GI bleed, metabolic encephalopathy, multiorgan failure. Patient was lying in bed, intubated/sedated, per RN patient was progressively hypoxic in the morning and hence central office operator decided to intubate the patient, ROS n/a. Physical Exam Physical Exam: GENERAL: Intubated/sedated/mechanical ventilation. HEENT: + pallor, + icterus. Pupils equal, round and reactive to light. Oral mucosa dry. NECK: No JVD, no neck masses. HEART: S1 and S2 heard. Regular rate and rhythm. No murmur, no gallop. RESPIRATORY SYSTEM: Normal AP diameter. No accessory muscle use. No wheezing, coarse bibasal crackles. ABDOMEN: Soft, bowel sounds present, nontender, no distention. CENTRAL NERVOUS SYSTEM: No facial droop. Speech is clear. Obeys simple commands. Moves extremities. EXTREMITIES: 2+ edema, no erythema seen. Urinary catheter with yellow urine collection noted in the bag. Drips running: Pantoprazole/Burke- Synephrine/vasopressin/octreotide/fentanyl/midazolam. Results & Data Results & Data ([facility]) Vital Signs (Past 12 Hours) Vital Signs Temp Pulse Resp BP Pulse Ox O2 Del Method FiO2 04/03/22 15:00 68 19 94 35 04/03/22 15:30 63 23 94 04/03/22 15:15 67 11 L 94 04/03/22 15:15 102/59 L 04/03/22 15:13 102/65 04/03/22 15:13 69 14 94 04/03/22 15:05 71 11 L 04/03/22 14:15 61 0 L 96 04/03/22 14:15 91/52 L 04/03/22 14:00 34.9 C L 61 16 97 04/03/22 14:00 91/49 L 04/03/22 13:45 34.9 C L 63 16 97 04/03/22 13:45 90/50 L 04/03/22 13:30 34.9 C L 60 19 95 04/03/22 13:30 95/53 L 04/03/22 13:15 34.9 C L 61 18 97 04/03/22 13:15 96/53 L 04/03/22 13:00 34.9 C L 61 17 96 04/03/22 13:00 92/49 L 04/03/22 12:45 34.9 C L 62 17 96 Mechanical Vent 0.35 04/03/22 12:45 91/51 L 04/03/22 12:31 34.9 C L 62 18 97 04/03/22 12:30 93/52 L 04/03/22 12:29 34.9 C L 62 19 96 04/03/22 12:15 34.9 C L 64 16 97 04/03/22 12:15 92/50 L 04/03/22 12:00 34.9 C L 69 16 95 04/03/22 12:00 99/52 L 04/03/22 11:45 34.8 C L 64 16 93 04/03/22 11:45 85/49 L 04/03/22 11:30 34.8 C L 65 16 95 04/03/22 11:30 77/45 L 04/03/22 11:15 34.9 C L 65 16 94 04/03/22 11:15 78/45 L 04/03/22 11:00 34.9 C L 68 20 94 04/03/22 11:00 88/47 L 04/03/22 10:45 35.1 C L 77 7 L 94 04/03/22 10:45 105/54 L 04/03/22 10:44 35.1 C L 83 10 L 95 04/03/22 10:44 107/56 L 04/03/22 10:42 120/62 04/03/22 10:42 35.1 C L 82 17 96 04/03/22 10:40 130/68 04/03/22 10:40 35.1 C L 88 3 L 100 04/03/22 10:38 35.1 C L 85 16 99 04/03/22 10:38 124/67 04/03/22 10:36 102/70 04/03/22 10:36 35.1 C L 75 17 77 L 04/03/22 10:34 35.1 C L 77 23 92 04/03/22 10:34 120/87 04/03/22 10:33 35.1 C L 79 17 94 04/03/22 10:33 116/94 04/03/22 10:31 35.1 C L 76 17 95 04/03/22 10:31 119/83 04/03/22 10:30 35.1 C L 77 21 83 L 04/03/22 10:28 35.1 C L 77 27 H 92 04/03/22 10:28 113/80 04/03/22 10:26 35.1 C L 76 22 92 04/03/22 10:26 118/76 04/03/22 10:24 35.1 C L 77 19 92 04/03/22 10:24 122/76 04/03/22 10:15 35.1 C L 75 17 92 04/03/22 10:15 122/74 04/03/22 10:00 35.1 C L 71 21 90 04/03/22 10:00 81/51 L 04/03/22 09:45 35.1 C L 63 15 91 04/03/22 09:45 98/65 L 04/03/22 09:30 35.1 C L 68 14 93 04/03/22 09:30 107/64 04/03/22 11:13 66 16 94 30 04/03/22 07:37 Room Air 04/03/22 06:00 75 19 112/93 86 L 04/03/22 05:45 73 25 H 131/61 86 L 04/03/22 05:30 56 L 12 112/68 99 04/03/22 05:15 57 L 12 105/68 98 04/03/22 05:00 58 L 12 110/69 98 04/03/22 04:45 60 12 92/63 L 100 04/03/22 04:30 61 16 105/61 99 04/03/22 04:15 64 14 102/75 69 L 04/03/22 04:00 74 15 139/79 04/03/22 04:39 36.5 C 62 12 105/61 98 04/03/22 04:16 36.5 C 62 16 105/61 99
[2022-04-03 15:59] LABS: Hematocrit (blood only) 25.2 % (34.1-44.9); Hemoglobin 8.7 g/dl (12.0-16.0)
[2022-04-03] MEDS: cefTRIAXone SODIUM 2,000 MG in DEXTROSE 5% 50 ML IV SCH (16:14)
--- NOTE | 2022-04-03 17:06 | Electroencephalogram ---
EEG Procedure Note Date of Service April 03, 2022 Start / End Times Start Time: 16:26 End Time: 16:46 Referring Physician Cee De La Vega History AMS Home Medication List Medication Instructions Recorded Confirmed Type fluticasone propionate 50 1 spray intranasal UD 04/02/22 04/02/22 History mcg/actuation nasal spray,suspension hydrochlorothiazide 12.5 mg tablet 12.5 mg PO DAILY 04/02/22 04/02/22 History loratadine 10 mg tablet 10 mg PO DAILY 04/02/22 04/02/22 History Inpatient Medication List Thiamine HCl 500 mg/ Sodium (Chloride) 55 mls @ 220 mls/hr IV Q8H JAYLEN Stop: 05/02/22 17:29 Last Admin: 04/03/22 16:49 Dose: 220 mls/hr Documented By: Infusion: 04/03/22 11:46 Dose: 0 mls/hr Documented By: Admin: 04/03/22 10:46 Dose: 220 mls/hr Documented By: Infusion: 04/03/22 02:23 Dose: 0 mls/hr Documented By: Admin: 04/03/22 01:13 Dose: 220 mls/hr Documented By: Infusion: 04/02/22 19:16 Dose: 0 mls/hr Documented By: Admin: 04/02/22 18:41 Dose: 220 mls/hr Documented By: CAM Vasopressin 20 units/ Sodium (Chloride) 101 mls @ 12.12 mls/hr IV .Q8H20M JAYLEN Stop: 05/02/22 19:14 Last Admin: 04/03/22 11:10 Dose: 0.04 unit/min, 12.1 mls/hr Documented By: CAM Co-signed By: MARCELLO Infusion: 04/03/22 07:51 Dose: 0.04 unit/min, 12.1 mls/hr Documented By: CAM Co-signed By: CRICKET Infusion: 04/03/22 07:11 Dose: 60 unit/min, 18,180 mls/hr Documented By: CF Co-signed By: CAM Admin: 04/03/22 02:24 Dose: 0.04 unit/min, 12.1 mls/hr Documented By: CF Co-signed By: DSRuth Infusion: 04/03/22 02:24 Dose: 0.04 unit/min, 12.1 mls/hr Documented By: CF Co-signed By: [facility] Admin: 04/02/22 19:21 Dose: 0.04 unit/min, 12.1 mls/hr Documented By: MILLER Co-signed By: QUIN Pantoprazole Sodium 40 mg/ (Dextrose) 100 mls @ 20 mls/hr IV Q5H [facility] Stop: 05/02/22 21:44 Last Admin: 04/03/22 11:35 Dose: 8 mg/hr, 20 mls/hr Documented By: Infusion: 04/03/22 11:35 Dose: 8 mg/hr, 20 mls/hr Documented By: Admin: 04/03/22 06:52 Dose: 8 mg/hr, 20 mls/hr Documented By: Infusion: 04/03/22 06:52 Dose: 8 mg/hr, 20 mls/hr Documented By: Admin: 04/03/22 02:26 Dose: 8 mg/hr, 20 mls/hr Documented By: Infusion: 04/03/22 02:26 Dose: 8 mg/hr, 20 mls/hr Documented By: Admin: 04/02/22 22:07 Dose: 8 mg/hr, 20 mls/hr Documented By: MILLER Phenylephrine HCl 50 mg/ (Dextrose) 250 mls @ 23.796 mls/hr IV .[id number] JAYLEN; Protocol Stop: 05/03/22 10:29 Last Admin: 04/03/22 10:56 Dose: 1.2 mcg/kg/min, 23.8 mls/hr Documented By: QUIN Co-signed By: CRICKET Fentanyl Citrate (Fentanyl Citrate) 2,500 mcg in 250 mls @ 2.5 mls/hr IV .Q96H [facility]; Protocol Stop: 04/17/22 10:29 Last Admin: 04/03/22 10:47 Dose: 50 mcg/hr, 5 mls/hr Documented By: QUIN Co-signed By: CRICKET Midazolam HCl (Versed) 125 mg in 250 mls @ 2 mls/hr IV .Q96H [facility]; Protocol Stop: 05/03/22 10:44 Last Admin: 04/03/22 10:47 Dose: 2 mg/hr, 4 mls/hr Documented By: QUIN Co-signed By: WRS Ceftriaxone Sodium 2,000 mg/ (Dextrose) 70 mls @ 100 mls/hr IV Q24H JAYLEN; Protocol Stop: 04/10/22 15:59 Last Admin: 04/03/22 16:14 Dose: 100 mls/hr Documented By: QUIN Lactulose (Lactulose Syrup 30 Gm/45 Ml Udp) 30 gm PO TID JAYLEN Stop: 05/02/22 20:59 Last Admin: 04/03/22 15:39 Dose: 30 gm Documented By: Admin: 04/02/22 20:42 Dose: 30 gm Documented By: CF Discontinued Medications Fentanyl Citrate (Fentanyl Citrate 100 Mcg/2 Ml Vial) 50 mcg IV NOW STA Stop: 04/03/22 01:49 Last Admin: 04/03/22 02:20 Dose: 50 mcg Documented By: CF Fentanyl Citrate (Fentanyl Citrate 2,500 Mcg/250 Ml Bag) Confirm Administered Dose 2,500 mcg IV .STK-MED ONE Stop: 04/03/22 10:17 Last Admin: 04/03/22 11:12 Dose: Not Given Documented By: QUIN Sodium Chloride (Nss 1000ml) 1,000 mls @ 999 mls/hr IV .Q1H1M ONE Stop: 04/02/22 13:57 Last Infusion: 04/02/22 14:13 Dose: 0 mls/hr Documented By: Admin: 04/02/22 13:10 Dose: 999 mls/hr Documented By: OL Pantoprazole Sodium 80 mg/ (Dextrose) 100 mls @ 400 mls/hr IV ONE STA Stop: 04/02/22 13:43 Last Infusion: 04/02/22 14:29 Dose: 0 mls/hr Documented By: Admin: 04/02/22 14:09 Dose: 400 mls/hr Documented By: OL Piperacillin Sod/Tazobactam Sod (Zosyn) 4.5 gm in 120 mls @ 240 mls/hr IV NOW ONE Stop: 04/02/22 14:19 Last Infusion: 04/02/22 14:29 Dose: 0 mls/hr Documented By: Admin: 04/02/22 13:59 Dose: 240 mls/hr Documented By: OL Norepinephrine Bitartrate (Levophed/D5w) 4 mg in 250 mls @ 12.056 mls/hr IV .[id number] JAYLEN; Protocol Stop: 05/02/22 14:14 Last Titration: 04/02/22 17:56 Dose: 0 mcg/kg/min, 0 mls/hr Documented By: Titration: 04/02/22 16:48 Dose: 0.09 mcg/kg/min, 21.7 mls/hr Documented By: Titration: 04/02/22 16:34 Dose: 0.07 mcg/kg/min, 16.9 mls/hr Documented By: Admin: 04/02/22 16:13 Dose: 0.05 mcg/kg/min, 12.1 mls/hr Documented By: ES Co-signed By: ACH Vancomycin HCl 1,250 mg/ (Sodium Chloride) 275 mls @ 200 mls/hr IV NOW ONE Stop: 04/02/22 18:22 Last Infusion: 04/02/22 19:21 Dose: 0 mls/hr Documented By: Admin: 04/02/22 17:15 Dose: 200 mls/hr Documented By: CAM Lorazepam 1 mg/ Syringe 1 mls @ 2 mls/min IV NOW STA Stop: 04/02/22 17:10 Last Admin: 04/02/22 19:21 Dose: Not Given Documented By: CAM Phenylephrine HCl 20 mg/ (Dextrose) 502 mls @ 125.887 mls/hr IV .Q4H [facility]; Protocol Stop: 05/02/22 17:14 Last Titration: 04/03/22 02:58 Dose: 0 mcg/kg/min, 0 mls/hr Documented By: Admin: 04/02/22 23:12 Dose: 1.3 mcg/kg/min, 125.9 mls/hr Documented By: CF Co-signed By: BPY Titration: 04/02/22 23:12 Dose: 1.3 mcg/kg/min, 125.9 mls/hr Documented By: CF Co-signed By: BPY Titration: 04/02/22 21:53 Dose: 1.3 mcg/kg/min, 125.9 mls/hr Documented By: Titration: 04/02/22 21:10 Dose: 1.1 mcg/kg/min, 106.5 mls/hr Documented By: Titration: 04/02/22 19:15 Dose: 0.9 mcg/kg/min, 87.2 mls/hr Documented By: CAM Co-signed By: CF Titration: 04/02/22 18:59 Dose: 0.9 mcg/kg/min, 87.2 mls/hr Documented By: Titration: 04/02/22 18:27 Dose: 0.7 mcg/kg/min, 67.8 mls/hr Documented By: Admin: 04/02/22 17:44 Dose: 0.5 mcg/kg/min, 48.4 mls/hr Documented By: CAM Co-signed By: JOSH Phytonadione 2.5 mg/ Dextrose 50.25 mls @ 100.5 mls/hr IV ONE ONE Stop: 04/02/22 17:59 Last Infusion: 04/02/22 19:21 Dose: 0 mls/hr Documented By: Admin: 04/02/22 17:31 Dose: 100.5 mls/hr Documented By: QUIN Octreotide Acetate 500 mcg/ (Dextrose) 100.5 mls @ 10.05 mls/hr IV .Q10H JAYLEN Stop: 05/02/22 20:29 Last Admin: 04/03/22 11:44 Dose: 248.76 mcg/hr, 50 mls/hr Documented By: Infusion: 04/03/22 07:38 Dose: 248.76 mcg/hr, 50 mls/hr Documented By: Admin: 04/03/22 05:37 Dose: 248.76 mcg/hr, 50 mls/hr Documented By: Infusion: 04/03/22 05:24 Dose: 0 mcg/hr, 0 mls/hr Documented By: Admin: 04/02/22 20:42 Dose: 50 mcg/hr, 10.1 mls/hr Documented By: CF Pantoprazole Sodium 80 mg/ (Dextrose) 120 mls @ 400 mls/hr IV NOW ONE Stop: 04/02/22 21:47 Last Infusion: 04/02/22 22:10 Dose: 0 mls/hr Documented By: Admin: 04/02/22 21:49 Dose: 400 mls/hr Documented By: CF Piperacillin Sod/Tazobactam (Sod 3.375 gm/ Dextrose) 115 mls @ 28.75 mls/hr IV Q12H JAYLEN; Protocol Stop: 04/10/22 00:00 Last Admin: 04/03/22 12:36 Dose: 28.8 mls/hr Documented By: Infusion: 04/03/22 04:33 Dose: 0 mls/hr Documented By: Admin: 04/03/22 00:47 Dose: 28.8 mls/hr Documented By: CF Potassium Chloride (K Wily / Wtr) 20 meq in 100 mls @ 50 mls/hr IV Q2H JAYLEN Stop: 04/03/22 04:29 Last Infusion: 04/03/22 04:34 Dose: 0 mls/hr Documented By: Admin: 04/03/22 02:24 Dose: 50 mls/hr Documented By: Infusion: 04/03/22 02:24 Dose: 50 mls/hr Documented By: Admin: 04/03/22 00:47 Dose: 50 mls/hr Documented By: CF Phytonadione 5 mg/ Dextrose 50.5 mls @ 101 mls/hr IV ONE ONE Stop: 04/03/22 01:48 Last Infusion: 04/03/22 02:58 Dose: 0 mls/hr Documented By: Admin: 04/03/22 02:23 Dose: 101 mls/hr Documented By: CF Phenylephrine HCl 20 mg/ (Dextrose) 502 mls @ 119.456 mls/hr IV .Q4H13M JAYLEN; Protocol Stop: 05/03/22 01:44 Last Titration: 04/03/22 07:11 Dose: 1.2 mcg/kg/min, 119.5 mls/hr Documented By: CF Co-signed By: CAM Titration: 04/03/22 06:14 Dose: 1.2 mcg/kg/min, 119.5 mls/hr Documented By: Titration: 04/03/22 06:08 Dose: 1.1 mcg/kg/min, 109.5 mls/hr Documented By: Titration: 04/03/22 06:03 Dose: 0.9 mcg/kg/min, 89.6 mls/hr Documented By: Titration: 04/03/22 05:58 Dose: 0.7 mcg/kg/min, 69.7 mls/hr Documented By: Admin: 04/03/22 05:53 Dose: 0.5 mcg/kg/min, 49.8 mls/hr Documented By: CF Co-signed By: HONEY Titration: 04/03/22 05:53 Dose: 0.5 mcg/kg/min, 49.8 mls/hr Documented By: MILLER Co-signed By: HONEY Admin: 04/03/22 02:21 Dose: 0.5 mcg/kg/min, 49.8 mls/hr Documented By: MILLER Co-signed By: JOVANY Lorazepam 0.5 mg/ Syringe 0.5 mls @ 2 mls/min IV NOW STA Stop: 04/03/22 02:47 Last Admin: 04/03/22 03:12 Dose: 2 mls/min Documented By: JOVANY Calcium Gluconate 2,000 mg/ (Dextrose) 70 mls @ 240 mls/hr IV NOW ONE Stop: 04/03/22 07:15 Last Infusion: 04/03/22 07:53 Dose: 0 mls/hr Documented By: Admin: 04/03/22 07:15 Dose: 240 mls/hr Documented By: MILLER Lorazepam 1 mg/ Syringe 1 mls @ 2 mls/min IV NOW STA Stop: 04/03/22 08:14 Last Admin: 04/03/22 08:28 Dose: 2 mls/min Documented By: QUIN Phytonadione 5 mg/ Dextrose 50.5 mls @ 101 mls/hr IV ONE ONE Stop: 04/03/22 10:59 Last Admin: 04/03/22 10:48 Dose: 101 mls/hr Documented By: QUIN Influenza Virus Vaccine (Influenza Vaccine High Dose Pf 65+ 0.7 Ml Syr) 0.7 ml IM .ONCE ONE Stop: 04/02/22 17:29 Last Admin: 04/02/22 17:50 Dose: Not Given Documented By: CAM Lorazepam (Lorazepam 2 Mg/2 Ml Syr) 1 mg IV NOW STA; Protocol Stop: 04/02/22 12:58 Last Admin: 04/02/22 13:10 Dose: 1 mg Documented By: OL Lorazepam (Lorazepam 2 Mg/2 Ml Syr) Confirm Administered Dose 2 mg .ROUTE .STK- MED ONE Stop: 04/02/22 13:00 Last Admin: 04/02/22 13:10 Dose: Not Given Documented By: OL Midazolam HCl (Midazolam Hcl 125mg/250ml D5w) Confirm Administered Dose 125 mg .ROUTE .STK-MED ONE Stop: 04/03/22 10:18 Last Admin: 04/03/22 11:12 Dose: Not Given Documented By: QUIN Frederick (Stat Iv Infusion Titration Per Protocol) 1 each N/A NOW STA Stop: 04/02/22 14:06 Last Admin: 04/02/22 15:12 Dose: Not Given Documented By: CARMINE Frederick (Patient's Height &/Or Weight Needed) 1 each N/A Q20M JAYLEN Stop: 05/02/22 16:44 Last Admin: 04/02/22 16:33 Dose: Not Given Documented By: Admin: 04/02/22 16:33 Dose: Not Given Documented By: Admin: 04/02/22 16:33 Dose: Not Given Documented By: Admin: 04/02/22 16:33 Dose: Not Given Documented By: Admin: 04/02/22 16:33 Dose: Not Given Documented By: Admin: 04/02/22 16:33 Dose: Not Given Documented By: Admin: 04/02/22 16:32 Dose: 1 each Documented By: CARMINE Frederick (Rapid Sequence Induction Bag) Confirm Administered Dose 1 each .ROUTE .STK-MED ONE Stop: 04/03/22 10:17 Last Admin: 04/03/22 11:12 Dose: 1 each Documented By: QUIN Pneumococcal Polyvalent Vaccine (Pneumococcal Polysaccharides 25 Mcg/0.5 Ml Vial/Syr) 25 mcg IM .ONCE ONE Stop: 04/02/22 17:29 Last Admin: 04/02/22 17:51 Dose: Not Given Documented By: QUIN Description This is a 21 electrode EEG with a single channel dedicated to limited EKG. The electrodes were placed in accordance with the International 10-20 system. Interpretation Throughout this EEG recording, the patient is intubated and sedated. There is no distinctive posterior rhythm. Background activity shows diffuse slowing with 2 to 3 Hz delta, moderate amplitude delta, intermixed with generalized, moderate amplitude 4 to 6 Hz theta waveforms. Photic stimulations do not induce posterior driving responses. Hyperventilation is not attempted. There is no sleep-related pattern. There are no electrographic seizures or epileptogenic discharges. Impression: This EEG, recorded in the patient's lethargic state, is abnormal due to diffuse slowing, consistent with bihemispheric dysfunction, as seen in encephalopathies. There is no electrographic seizure or epileptogenic discharge.
[2022-04-03 17:27] LABS: BUN Creatinine Ratio 31.5 (10-20); Calcium 8.1 mg/dl (8.5-10.1); Creatinine Clr Calc Pharmacy 13.2 ml/min; Est GFR (African American) 13.6 ml/min; Est GFR (Non-African American) 11.7 ml/min; Potassium 3.3 mmol/L (3.5-5.1)
[2022-04-03 22:32] LABS: Hematocrit (blood only) 24.1 % (34.1-44.9); Hemoglobin 8.5 g/dl (12.0-16.0)
[2022-04-04] MEDS: THIAMINE HCL 500 MG in SODIUM CHLORIDE 0.9% 50 ML IV SCH ×2 (01:58→08:21)
[2022-04-04] MEDS: DEXTROSE 5% IV SCH ×5 (02:59→20:30)
[2022-04-04] MEDS: PHENYLEPHRINE HCL IV SCH ×5 (02:59→20:30)
[2022-04-04 04:34] LABS: Hematocrit (blood only) 23.8 % (34.1-44.9); Hemoglobin 8.4 g/dl (12.0-16.0); Mean Corpuscular Hemoglobin 32.8 pg (25.0-34.0); Mean Corpuscular Hgb Conc 35.3 g/dL (32.0-36.0); Mean Platelet Volume 11.2 fL (9.4-12.3); Nucleated RBC # (auto) 0.11 K/uL (0-0); Nucleated RBC % (auto) 0.4 %; Platelet Count 167 K/uL (130-400); RDW Coefficient of Variation 18.8 % (11.5-14.5); Red Blood Count 2.56 M/uL (3.93-5.22); White Blood Count 25.76 K/ul (4.8-10.8)
[2022-04-04 04:44] LABS: iSTAT Allen Test Pass; iSTAT Art Bld Gas pCO2 Correct 23 mmHg (35-46); iSTAT Arterial Blood Gas HCO3 18 meg/L (19-24); iSTAT Arterial Blood Gas pCO2 23 mmHg (35-46); iSTAT Arterial Blood Gas pO2 81 mmHg (80-95); iSTAT Arterial Blood Gas pO2 C 81; iSTAT Carbon Dioxide 19 mmol/L (24-31); iSTAT FiO2 35 %; iSTAT Hematocrit 26 % (37-47); iSTAT Hemoglobin 8.8 g/dl (12.0-16.0); iSTAT Potassium 3.3 mmol/L (3.3-5.0); iSTAT Site R Radial; iSTAT Sodium 131 mmol/L (135-144)
[2022-04-04 04:48] LABS: Partial Thromboplastin Ratio 1.1; Partial Thromboplastin Time 29.9 Seconds (21.0-31.0)
[2022-04-04 04:54] LABS: Albumin Globulin Ratio 0.8 (0.9-2); Albumin Level 2.3 gm/dl (3.4-5.0); BUN Creatinine Ratio 29.4 (10-20); Bilirubin Direct 2.3 mg/dl (0-0.2); Bilirubin,Total 5.3 mg/dl (0.2-1.0); Calcium 7.8 mg/dl (8.5-10.1); Creatinine Clr Calc Pharmacy 12.2 ml/min; Est GFR (African American) 12.4 ml/min; Est GFR (Non-African American) 10.7 ml/min; Globulin 2.9 gm/dl (2.5-4.0); Potassium 3.4 mmol/L (3.5-5.1); Total Protein 5.2 gm/dl (6.0-8.3)
[2022-04-04] MEDS: PANTOprazole 40 MG in DEXTROSE 5% 100 ML IV SCH ×2 (04:54→09:30)
[2022-04-04] MEDS: VASOPRESSIN 20 UNITS in 0.9 % SODIUM CHLORIDE 100 ML IV SCH ×3 (05:16→22:30)
[2022-04-04 05:36] LABS: Magnesium 2.5 mg/dl (1.7-2.4); Phosphorus 6.4 mg/dl (2.5-4.9)
--- NOTE | 2022-04-04 07:48 | Critical Care Progress Note ---
Date of Service April 04, 2022 Assessment & Plan (1) Acute blood loss anemia: Plan: Reason Critically Ill: 66-year-old female admitted for MICHA, with severe symptomatic anemia and encephalopathy. Neuro CAM ICU: POSITIVE Sedation: Versed, Fentanyl Analgesia: -Acute encephalopathy: ammonia mildly elevated on admission. Repeat level normal. Head CT, brain MRI negative for intracranial process. * MRI, EEG. Cardiac -Hypotension: 80s-90s systolic * Phenylephrine drip per ICU protocol Respiratory -Multilobar pneumonia: as seen on chest CT. Leukocytosis increased vs. admission. Now on mechanical ventilation. * Ceftriaxone GI -Cirrhosis/Hepatic encephalopathy: repeat ammonia normal. AST/ALT pattern suggestive of alcoholic hepatic process * Ceftriaxone * Lactulose 30 mg TID * PPI now twice daily * NPO RENAL/LYTES -MICHA: -Hypokalemia, hyponatremia: not profound. -Elevated phosphate likely 2/2 to MICHA. Slightly improved from yesterday. Continue to trend * Hepatic function labs qAM * Trend electrolytes, replete as needed, strict I/Os. ENDO -ICU hyperglycemia protocol HEME -Supratherapeutic INR: received vitamin K 5mg -Anemia: improving * Trend PT/INR * H&H q6h ID -Multilobar PNA, SBP prophylaxis * Ceftriaxone * Monitor fever curve. LINES/IV ACCESS PIVs intact. DVT PROPHYLAXIS - chemical prophylaxis contraindicated Thank you for allowing us to be part of this patient's care. Please refer to Dr. Sylvester's documentation for any further recommendations. (2) Encephalopathy acute: (3) GI bleed: (4) MICHA (acute kidney injury): (5) UTI (urinary tract infection): (6) Leukocytosis: (7) Elevated troponin: (8) Cirrhosis: Admission and Anticipated Discharge Date Admission Date: April 02, 2022 Supervising Physician Co-Signing Physician Notes Dr. De La Vega was resident physician during care of patient. I separately evaluated patient for posey portions of the history and the exam. I was present during the critical portion of medical decision making, and I discussed the case with the resident. I generally agree with the findings and plan. Ongoing encephalopathy, suspect hepatic encephalopathy, MRI reviewed. EEG report reviewed. Worsening renal function, family reports patient would not want to undergo trial of dialysis understands this would ultimately lead to patient dying if kidney function does not improve. De-escalate to Rocephin, 7 days effective therapy. Continue lactulose to 3-4 bowel movements daily. Transition PPI infusion to twice daily Patient was discussed in multidisciplinary rounds. I have personally spent 45 minutes of critical care time in the direct management of this patient. This is a life/limb threatening event. This includes time spent evaluating patient, direct bedside care, chart review, placing orders, interpretation of diagnostic studies, discussion with consultants, patient, and/or family members regarding treatment decisions, as well as other required patient management activities. This time is exclusive of all separately billable procedures, and teaching time and separate from and in addition to any other critical care service time. Subjective No acute events overnight. Patient remains intubated and, per nursing, appears comfortable. Family was briefed Review of Systems Review of Systems: All systems reviewed & are unremarkable except as noted in HPI & below Physical Exam Physical Exam: General: Asleep and intubated. In no acute distress. HEENT: PERRLA. NG tube present. O2 cannula. Moist mucosal membranes. CV: Regular rate and rhythm. Normal S1 and S2. No murmurs gallops or rubs. Respiratory: Minimal bibasilar crackles. No rhonchi or wheezes. Abdomen: Soft, nondistended abdomen. No bruits heard on auscultation. Extremities: Bilateral pedal edema Neuro: Responds to painful stimuli Results & Data Results & Data ([facility]) Vital Signs (Past 12 Hours) Vital Signs Temp Pulse Resp BP Pulse Ox O2 Del Method FiO2 04/04/22 06:00 68 10 L 04/04/22 06:00 93/51 L 04/04/22 05:45 98/50 L 04/04/22 05:45 71 10 L 95 04/04/22 05:30 72 11 L 94 04/04/22 05:30 99/50 L 04/04/22 05:15 73 12 93 04/04/22 05:15 98/52 L 04/04/22 04:50 12 35 04/04/22 05:00 70 13 91 04/04/22 05:00 98/49 L 04/04/22 04:45 72 15 91 04/04/22 04:45 95/48 L 04/04/22 04:30 14 97 04/04/22 04:30 80/48 L 04/04/22 04:15 70 14 94 04/04/22 04:15 93/50 L 04/04/22 04:00 72 18 94 04/04/22 04:00 37 C 83/45 L 04/04/22 03:45 74 14 93 04/04/22 03:45 94/49 L 04/04/22 03:30 74 15 92 04/04/22 03:30 92/49 L 04/04/22 03:15 71 15 91 04/04/22 03:15 94/49 L 04/04/22 03:00 69 14 94 04/04/22 03:00 89/49 L 04/04/22 02:45 68 14 94 04/04/22 02:45 91/49 L 04/04/22 02:30 68 19 94 04/04/22 02:30 91/49 L 04/04/22 02:15 68 14 94 04/04/22 02:15 91/50 L 04/04/22 02:00 68 15 94 04/04/22 02:00 37 C 90/51 L 04/04/22 01:45 67 18 94 04/04/22 01:45 91/50 L 04/04/22 01:30 67 13 94 04/04/22 01:30 90/51 L 04/04/22 01:15 66 20 94 04/04/22 01:15 90/49 L 04/04/22 01:00 65 17 94 04/04/22 01:00 89/50 L 04/04/22 00:45 65 14 94 04/04/22 00:45 88/51 L 04/04/22 00:30 65 15 94 04/04/22 00:30 90/49 L 04/04/22 00:15 66 19 94 04/04/22 00:15 89/52 L 04/04/22 00:00 66 19 93 04/04/22 00:00 36.4 C L 91/52 L 04/03/22 23:45 66 17 94 04/03/22 23:45 90/49 L 04/03/22 23:30 65 19 94 04/03/22 23:30 91/51 L 04/03/22 23:15 66 16 94 04/03/22 23:15 90/53 L 04/03/22 23:00 65 19 94 04/03/22 23:00 91/52 L 04/04/22 02:59 69 21 94 35 04/04/22 00:00 72 04/03/22 22:16 64 18 9 L 35 04/03/22 20:30 58 L 10 L 94 04/03/22 20:30 84/48 L 04/03/22 20:15 82/47 L 04/03/22 20:15 57 L 20 94 04/03/22 20:00 36.4 C L 57 L 17 93 04/03/22 20:00 84/49 L 04/03/22 20:32 58 L 22 93 35 04/03/22 20:00 Mechanical Vent 35 Resident Activity Tracking Resident Involvement: Resident Care Provided Care Provided: Adult Hospital Medicine
[2022-04-04] MEDS: LACTULOSE SYRUP 30 GM/45 ML UDP PO SCH ×3 (08:22→20:31)
--- NOTE | 2022-04-04 08:23 | XRay Report ---
XR chest 1V portable HISTORY: 66 years-old Female intubation acute respiratory failure COMPARISON: Chest radiograph 04/03/2022 at 10:49 AM TECHNIQUE: AP view of the chest FINDINGS: Endotracheal tube overlies the midline, 9 mm superior to the kay. Enteric tube distal tip projects over the gastric body. Right IJ dual-lumen dialysis catheter is noted with distal tip in the expecte d location of the mid SVC. No pneumothorax. Probable trace pleural effusions. Bilateral mixed interst itial and alveolar opacities are redemonstrated and appear overall similar to prior. Slightly improve d aeration of the right upper lung. Bones appear grossly intact. IMPRESSION: 1. Lines and tubes as above. 2. No pneumothorax. 3. Generally stable mixed interstitial and alveolar opacities with mildly improved aeration of the ri ght upper lung. ACT 112: Negative or not required by law. The above report was generated using voice recognition software. It may contain grammatical, syntax o r spelling errors. Electronically signed by: Olayinka Ramos M.D. 04/04/2022 8:22 AM
--- NOTE | 2022-04-04 09:12 | Communication Note ---
Date of Service: April 04, 2022 S/P EGD yesterday. No further stools documented. HGB stable s/p transfusion of 4 untis RBCs. Please continue management per communication note and consultation yesterday. Ok to d/c octreotide. Recall GI as needed. Thank you for allowing us to participate in the care of this patient. Please call with any acute changes, questions or concerns. Please see addendum below with additional recommendation from my supervising physician.
--- NOTE | 2022-04-04 12:05 | Nephrology Progress Note ---
Date of Service April 04, 2022 Assessment & Plan (1) MICHA (acute kidney injury): Plan: [place] 2/ Ischemic/ Toxic ATN. possible etiologies include liver disease/ sepsis. - UOP continues to be poor and renal function continue to decline. expect further decline in renal functions as she has not peaked yet - She is still on pressors for a decent pressure support. - She is too hemodynamically unstable to be started on IHD,CRRT would be the modality needed here. - She is not a dialysis candidate as discussed with the family ( she does not want trial of dialysis) - Continue with conservative measure,IV fluids , blood products , renally dosed Abx. Nephrology will follow peripherally. (2) Encephalopathy acute: (3) Acute blood loss anemia: (4) Cirrhosis: (5) Lactic acidosis: Admission and Anticipated Discharge Date Admission Date: April 02, 2022 Subjective No acute events overnight. Patient remains intubated and appears comfortable. Continues to be critically ill. Review of Systems Review of Systems: Unobtainable due to cognitive status Physical Exam Physical Exam: General: intubated and ventilated. Head: Normocephalic, atraumatic ENT:PERRL, no pharyngeal exudate, mucous membranes dry Chest: Coarse breath sounds bilaterally with rales% Cardiac: no murmur, no JVD, normal peripheral pulsesl Abdominal: +distended but soft, no fluid wave, nontender to palpation, no rebound or guarding Extremities: Normal inspection, 2+ peripheral pitting edema up to thighs bilaterally Skin: jaundiced Results & Data ([facility]) Vital Signs (Past 12 Hours) Vital Signs Temp Pulse Resp BP Pulse Ox O2 Del Method FiO2 04/04/22 10:55 68 18 93 30 04/04/22 10:30 67 10 L 04/04/22 10:30 89/47 L 04/04/22 10:15 69 9 L 04/04/22 10:15 91/47 L 04/04/22 10:00 68 10 L 04/04/22 10:00 90/47 L 04/04/22 09:45 71 12 04/04/22 09:45 91/44 L 04/04/22 09:30 69 9 L 04/04/22 09:30 89/45 L 04/04/22 09:15 71 11 L 04/04/22 09:15 88/45 L 04/04/22 09:00 69 10 L 04/04/22 09:00 86/44 L 04/04/22 08:45 68 10 L 04/04/22 08:45 91/46 L 04/04/22 08:30 68 10 L 04/04/22 08:30 91/47 L 04/04/22 08:15 68 11 L 04/04/22 08:15 88/46 L 04/04/22 08:00 69 9 L 04/04/22 08:00 92/47 L 04/04/22 07:45 69 9 L 04/04/22 07:45 91/46 L 04/04/22 07:30 69 15 04/04/22 07:30 92/48 L 04/04/22 07:15 68 9 L 04/04/22 07:15 90/46 L 04/04/22 07:00 67 12 04/04/22 07:00 90/48 L 04/04/22 06:45 67 12 04/04/22 06:45 89/46 L 04/04/22 06:30 67 12 04/04/22 06:30 95/48 L 04/04/22 06:15 67 12 04/04/22 06:15 93/48 L 04/04/22 08:00 30 04/04/22 08:00 Mechanical Vent 30 04/04/22 07:25 68 18 94 30 04/04/22 06:00 68 10 L 04/04/22 06:00 93/51 L 04/04/22 05:45 98/50 L 04/04/22 05:45 71 10 L 95 04/04/22 05:30 72 11 L 94 04/04/22 05:30 99/50 L 04/04/22 05:15 73 12 93 04/04/22 05:15 98/52 L 04/04/22 04:50 12 35 04/04/22 05:00 70 13 91 04/04/22 05:00 98/49 L 04/04/22 04:45 72 15 91 04/04/22 04:45 95/48 L 04/04/22 04:30 14 97 04/04/22 04:30 80/48 L 04/04/22 04:15 70 14 94 04/04/22 04:15 93/50 L 04/04/22 04:00 72 18 94 04/04/22 04:00 37 C 83/45 L 04/04/22 03:45 74 14 93 04/04/22 03:45 94/49 L 04/04/22 03:30 74 15 92 04/04/22 03:30 92/49 L 04/04/22 03:15 71 15 91 04/04/22 03:15 94/49 L 04/04/22 03:00 69 14 94 04/04/22 03:00 89/49 L 04/04/22 02:45 68 14 94 04/04/22 02:45 91/49 L 04/04/22 02:30 68 19 94 04/04/22 02:30 91/49 L 04/04/22 02:15 68 14 94 04/04/22 02:15 91/50 L 04/04/22 02:00 68 15 94 04/04/22 02:00 37 C 90/51 L 04/04/22 01:45 67 18 94 04/04/22 01:45 91/50 L 04/04/22 01:30 67 13 94 04/04/22 01:30 90/51 L 04/04/22 01:15 66 20 94 04/04/22 01:15 90/49 L 04/04/22 01:00 65 17 94 04/04/22 01:00 89/50 L 04/04/22 00:45 65 14 94 04/04/22 00:45 88/51 L 04/04/22 00:30 65 15 94 04/04/22 00:30 90/49 L 04/04/22 00:15 66 19 94 04/04/22 00:15 89/52 L 04/04/22 02:59 69 21 94 35 Laboratory Results 04/04/22 04:28 04/04/22 04:28
--- NOTE | 2022-04-04 12:51 | Hospitalist Progress Note ---
Date of Service April 04, 2022 Assessment & Plan (1) Encephalopathy acute: (2) GI bleed: (3) Severe sepsis with septic shock: Plan 66-year-old lady with no known PMH/FH/SH presented to the ED 04/02 after she was found encephalopathic in her home by her landlord and found to be in severe sepsis with septic shock and multiorgan failure at presentation in the ED. Of note, patient was brought to the hospital by EMS after landlord called them due to not seeing the patient for about 3 days and hearing her scream from within the apartment complex, when EMS arrived on the scene she was found on the floor screaming/agitated and was combative. She is being managed for the following: Severe sepsis with septic shock POA Multiorgan failure Acute renal failure Metabolic encephalopathy, likely hepatic Multilobar pneumonia UTI Likely GI bleed/profound anemia POA Elevated troponin: Likely secondary to acute distress, EKG with ST and T wave abnormality. At presentation: Hb 3.5, WBC 20.94K, platelet 228K, NA 141, K4.0, creatinine 3.7, BUN 127, lactic acid 6.1, INR 1.9, NH3 115, T bili 3.0, AST 104, ALT 31, ALP 111, CK2 05, troponin 74. Lipase 115. Also at presentation, hypotensive worsening to 70s/40s, tachycardic, received blood transfusion. Was on room air with O2 sats in the 90s. She had coarse breath sounds and imaging showed pneumonia. UA suggestive of UTI. CTAP suggestive of alveolar pulmonary edema and cirrhotic liver. Toxicology screen negative. COVID-negative. Gastric occult blood positive. MRSA negative. Admitting urine culture GNB on preliminary, follow final results. Admitting blood culture 04/02, follow final results. Admitting imagings: Head CT: No acute findings. CXR: Left basilar opacity and right apical opacity suggestive of pneumonia. CTAP: Cirrhotic liver with extensive hypodense foci throughout the liver with capsular retraction, findings suggestive of hepatic asteatosis versus neoplastic etiology. A liver protocol CT is recommended on nonemergent basis. Anasarca. Right colon wall thickening suggestive of nonspecific colitis. Cholelithiasis. Lingular and left lower lobe airspace opacity which could reflect pneumonia or alveolar pulmonary edema. C-spine CT: No acute findings, osteopenia. CT chest: Multifocal pneumonia. Follow-up to resolution recommended. 04/03 brain MRI: No acute abnormality. Scattered foci of T2 hyperintensity seen within the periventricular and subcortical white matter nonspecific but favor mild microvascular ischemic change. Patient is status post 4 unit prbc and 1 unit FFP transfusion. H&H and repletion per ICU team. Patient needed multiple fluid resuscitation and pressor support, currently intubated [04/03/2022 AM] likely secondary to pulmonary edema. Patient on Rocephin 04/03. Patient requiring Burke-Synephrine and vasopressin. s/p EGD on 04/03 with no signs of active variceal bleed, octreotide stopped. on iv protonix. Patient in ICU care, per electroplating technician. GI evaluated. Nephrology on board for renal failure. Renal failure worsning, continue to monitor. DVT prophylaxis: Teds/SCDs, no chemical prophylaxis in the setting of acute GI bleed. On iv PPI. Disposition: ICU, prognosis guarded. Admission and Anticipated Discharge Date Admission Date: April 02, 2022 Subjective Patient seen and examined at bedside as a follow-up of severe sepsis with septic shock POA, lactic acidosis POA, UTI, pneumonia, GI bleed, metabolic encephalopathy, multiorgan failure. Patient was lying in bed, intubated (form AM of 04/03/22)/sedated, Per RN she needed increased neosynephrine dose for pressor support overnight. ROS n/a. Octreotide drip dc'd after EGD. Pt is getting lactulose and NG tube feed. Physical Exam Physical Exam: GENERAL: Intubated/sedated/mechanical ventilation. HEENT: + pallor, + icterus. Pupils equal, round and reactive to light. Oral mucosa dry. NECK: No JVD, no neck masses. HEART: S1 and S2 heard. Regular rate and rhythm. No murmur, no gallop. RESPIRATORY SYSTEM: Normal AP diameter. No accessory muscle use. No wheezing, coarse bibasal crackles. ABDOMEN: Soft, bowel sounds present, no distention. CENTRAL NERVOUS SYSTEM: No facial droop. Sedated and intubated. EXTREMITIES: 2+ edema, no erythema seen. Urinary catheter with yellow urine collection noted in the bag. Drips running: Pantoprazole/Burke-Synephrine/vasopressin/fentanyl/midazolam. Results & Data Results & Data ([facility]) Vital Signs (Past 12 Hours) Vital Signs Temp Pulse Resp BP Pulse Ox O2 Del Method FiO2 04/04/22 12:30 68 12 04/04/22 12:15 68 11 L 04/04/22 12:15 92/46 L 04/04/22 12:00 69 10 L 04/04/22 12:00 90/47 L 04/04/22 11:45 69 12 04/04/22 11:45 92/46 L 04/04/22 11:30 68 10 L 04/04/22 11:30 89/47 L 04/04/22 11:15 68 10 L 04/04/22 11:15 89/47 L 04/04/22 11:00 67 10 L 04/04/22 11:00 90/47 L 04/04/22 10:45 67 14 04/04/22 10:45 88/45 L 04/04/22 10:55 68 18 93 30 04/04/22 10:30 67 10 L 04/04/22 10:30 89/47 L 04/04/22 10:15 69 9 L 04/04/22 10:15 91/47 L 04/04/22 10:00 68 10 L 04/04/22 10:00 90/47 L 04/04/22 09:45 71 12 04/04/22 09:45 91/44 L 04/04/22 09:30 69 9 L 04/04/22 09:30 89/45 L 04/04/22 09:15 71 11 L 04/04/22 09:15 88/45 L 04/04/22 09:00 69 10 L 04/04/22 09:00 86/44 L 04/04/22 08:45 68 10 L 04/04/22 08:45 91/46 L 04/04/22 08:30 68 10 L 04/04/22 08:30 91/47 L 04/04/22 08:15 68 11 L 04/04/22 08:15 88/46 L 04/04/22 08:00 69 9 L 04/04/22 08:00 92/47 L 04/04/22 07:45 69 9 L 04/04/22 07:45 91/46 L 04/04/22 07:30 69 15 04/04/22 07:30 92/48 L 04/04/22 07:15 68 9 L 04/04/22 07:15 90/46 L 04/04/22 07:00 67 12 04/04/22 07:00 90/48 L 04/04/22 06:45 67 12 04/04/22 06:45 89/46 L 04/04/22 06:30 67 12 04/04/22 06:30 95/48 L 04/04/22 06:15 67 12 04/04/22 06:15 93/48 L 04/04/22 08:00 30 04/04/22 08:00 Mechanical Vent 30 04/04/22 07:25 68 18 94 30 04/04/22 06:00 68 10 L 04/04/22 06:00 93/51 L 04/04/22 05:45 98/50 L 04/04/22 05:45 71 10 L 95 04/04/22 05:30 72 11 L 94 04/04/22 05:30 99/50 L 04/04/22 05:15 73 12 93 04/04/22 05:15 98/52 L 04/04/22 04:50 12 35 04/04/22 05:00 70 13 91 04/04/22 05:00 98/49 L 04/04/22 04:45 72 15 91 04/04/22 04:45 95/48 L 04/04/22 04:30 14 97 04/04/22 04:30 80/48 L 04/04/22 04:15 70 14 94 04/04/22 04:15 93/50 L 04/04/22 04:00 72 18 94 04/04/22 04:00 37 C 83/45 L 04/04/22 03:45 74 14 93 04/04/22 03:45 94/49 L 04/04/22 03:30 74 15 92 04/04/22 03:30 92/49 L 04/04/22 03:15 71 15 91 04/04/22 03:15 94/49 L 04/04/22 03:00 69 14 94 04/04/22 03:00 89/49 L 04/04/22 02:45 68 14 94 04/04/22 02:45 91/49 L 04/04/22 02:30 68 19 94 04/04/22 02:30 91/49 L 04/04/22 02:15 68 14 94 04/04/22 02:15 91/50 L 04/04/22 02:00 68 15 94 04/04/22 02:00 37 C 90/51 L 04/04/22 01:45 67 18 94 04/04/22 01:45 91/50 L 04/04/22 01:30 67 13 94 04/04/22 01:30 90/51 L 04/04/22 01:15 66 20 94 04/04/22 01:15 90/49 L 04/04/22 01:00 65 17 94 04/04/22 01:00 89/50 L 04/04/22 00:45 65 14 94 04/04/22 00:45 88/51 L 04/04/22 02:59 69 21 94 35
[2022-04-04] MEDS: PANTOprazole 40 MG in SYRINGE 0 ML IV SCH ×2 (15:03→20:31)
[2022-04-04] MEDS: cefTRIAXone SODIUM 2,000 MG in DEXTROSE 5% 50 ML IV SCH (17:25)
[2022-04-05] MEDS: PHENYLEPHRINE HCL IV SCH ×6 (01:22→19:56)
[2022-04-05] MEDS: DEXTROSE 5% IV SCH ×6 (01:22→19:56)
[2022-04-05] MEDS: MIDAZOLAM HCL 125 MG/250 ML BAG IV SCH (01:33)
[2022-04-05] MEDS: NEW Std Conc--fentaNYL 2,500mcg/250mL NSS **10mcg/mL IV SCH (01:34)
[2022-04-05] MEDS: VASOPRESSIN 20 UNITS in 0.9 % SODIUM CHLORIDE 100 ML IV SCH (05:43)
--- NOTE | 2022-04-05 05:49 | Electrocardiogram Report ---
Test Reason : Blood Pressure : / mmHG Vent. Rate : 068 BPM Atrial Rate : 068 BPM P-R Int : 148 ms QRS Dur : 082 ms QT Int : 444 ms P-R-T Axes : 043 026 058 degrees QTc Int : 472 ms Normal sinus rhythm Low voltage QRS Nonspecific T wave abnormality When compared with ECG of 02-APR-2022 13:05, Fusion complexes are no longer Present T wave inversion less evident in Anterolateral leads Confirmed by Reg Malin ([id number] on 04/05/2022 5:49:01 AM Referred By: REFERRED SELF Confirmed By:Reg Malin
[2022-04-05 05:55] LABS: Hematocrit (blood only) 27.2 % (34.1-44.9); Hemoglobin 9.4 g/dl (12.0-16.0); Mean Corpuscular Hemoglobin 32.9 pg (25.0-34.0); Mean Corpuscular Hgb Conc 34.6 g/dL (32.0-36.0); Mean Corpuscular Volume 95.1 fL (80.0-100.0); Mean Platelet Volume 11.5 fL (9.4-12.3); Platelet Count 197 K/uL (130-400); RDW Coefficient of Variation 18.7 % (11.5-14.5); RDW Standard Deviation 61.4 fL (36.4-46.3); Red Blood Count 2.86 M/uL (3.93-5.22); White Blood Count 27.07 K/ul (4.8-10.8)
[2022-04-05 06:14] LABS: BUN Creatinine Ratio 33.2 (10-20); Calcium 7.8 mg/dl (8.5-10.1); Creatinine Clr Calc Pharmacy 14.8 ml/min; Est GFR (African American) 13.9 ml/min
[2022-04-05 06:15] LABS: Partial Thromboplastin Ratio 1.2; Partial Thromboplastin Time 32.7 Seconds (21.0-31.0)
[2022-04-05 06:17] LABS: Albumin Globulin Ratio 0.8 (0.9-2); Albumin Level 2.5 gm/dl (3.4-5.0); Bilirubin Direct 3.8 mg/dl (0-0.2); Bilirubin,Total 6.3 mg/dl (0.2-1.0); Globulin 3.2 gm/dl (2.5-4.0); Magnesium 2.5 mg/dl (1.7-2.4); Phosphorus 7.5 mg/dl (2.5-4.9); Total Protein 5.7 gm/dl (6.0-8.3)
[2022-04-05 06:20] LABS: iSTAT Allen Test Pass; iSTAT Arterial Blood Gas HCO3 18 meg/L (19-24); iSTAT Arterial Blood Gas pCO2 35 mmHg (35-46); iSTAT Arterial Blood Gas pH 7.32 (7.35-7.45); iSTAT Arterial Blood Gas pO2 77 mmHg (80-95); iSTAT Carbon Dioxide 19 mmol/L (24-31); iSTAT FiO2 30 %; iSTAT Site R Radial
--- NOTE | 2022-04-05 07:40 | Critical Care Progress Note ---
Date of Service April 05, 2022 Assessment & Plan (1) Acute blood loss anemia: Plan: Reason Critically Ill: 66-year-old female admitted for MICHA, with severe symptomatic anemia and encephalopathy. Neuro CAM ICU: POSITIVE Sedation: Versed, Fentanyl Analgesia: -Acute encephalopathy: ammonia mildly elevated on admission. Repeat level normal. Head CT, brain MRI negative for intracranial process. * MRI, EEG. Cardiac -Hypotension: 80s-90s systolic * Phenylephrine drip per ICU protocol. Likely wean off tomorrow at family's insistence. Respiratory -Multilobar pneumonia: as seen on chest CT. Leukocytosis increased vs. admission. Now on mechanical ventilation. * Ceftriaxone x7 days GI -Cirrhosis/Hepatic encephalopathy: repeat ammonia normal. AST/ALT pattern suggestive of alcoholic hepatic process * Ceftriaxone * Lactulose 30 mg TID (or 3-4 bowel movements a day) * PPI twice daily * NPO RENAL/LYTES -MICHA: -Hypokalemia, hyponatremia: not profound. -Elevated phosphate likely 2/2 to MICHA. Slightly improved from yesterday. Co ntinue to trend * Hepatic function labs qAM * Trend electrolytes, replete as needed, strict I/Os. ENDO -ICU hyperglycemia protocol HEME -Supratherapeutic INR: received vitamin K 5mg -Anemia: improving. * Trend PT/INR. Likely discontinue daily labs. ID -Multilobar PNA, SBP prophylaxis * Ceftriaxone LINES/IV ACCESS PIVs intact. DVT PROPHYLAXIS - chemical prophylaxis contraindicated Thank you for allowing us to be part of this patient's care. Please refer to Dr. Sylvester's documentation for any further recommendations. (2) Encephalopathy acute: (3) GI bleed: (4) MICHA (acute kidney injury): (5) UTI (urinary tract infection): (6) Leukocytosis: (7) Elevated troponin: (8) Cirrhosis: Admission and Anticipated Discharge Date Admission Date: April 02, 2022 Supervising Physician Co-Signing Physician Notes Dr. De La Vega was resident physician during care of patient. I separately evaluated patient for posey portions of the history and the exam. I was present during the critical portion of medical decision making, and I discussed the case with the resident. I generally agree with the findings and plan. Renal dysfunction seems to have nadired. Ongoing hepatic dysfunction, bilirubin continues to climb. Continue Rocephin for 7 days of therapy, elevated white count however afebrile. Discontinuing sedatives and analgesics as patient has dense encephalopathy. MRI reviewed, contrast contraindicated in the setting of renal dysfunction and desire to not undergo any form of hemodialysis it is imperative to avoid nephrotoxins. In discussions with family we will continue to provide life-sustaining care in hopes that her body will recove from multisystem organ dysfunction. Patient has positive fluid balance, we will attempt to minimize extraneous fluids as renal replacement therapy not an option for volume control, still desiring to avoid nephrotoxins Will hold diuresis as today is the first day of recovery unless nephrology considers it appropriate at this time. We will start trickle feeding cautiously. Continue lactulose. Add rifaximin. Patient was discussed in multidisciplinary rounds. I have personally spent 45 minutes of critical care time in the direct management of this patient. This is a life/limb threatening event. This includes time spent evaluating patient, direct bedside care, chart review, placing orders, interpretation of diagnostic studies, discussion with consultants, patient, and/or family members regarding treatment decisions, as well as other required patient management activities. This time is exclusive of all separately billable procedures, and teaching time and separate from and in addition to any other critical care service time. Subjective Patient in bed. Remains intubated. Upon discussion with patient's family, decision was made to gradually wean off pressor support. However, family elected to defer weaning of pressure support until tomorrow, when her son can make it. Review of Systems Review of Systems: All systems reviewed & are unremarkable except as noted in HPI & below Physical Exam Physical Exam: General: Asleep and intubated. In no acute distress. HEENT: PERRLA. NG tube present. O2 cannula. Moist mucosal membranes. CV: Regular rate and rhythm. Normal S1 and S2. No murmurs gallops or rubs. Respiratory: Minimal bibasilar crackles. No rhonchi or wheezes. Abdomen: Soft, nondistended abdomen. No bruits heard on auscultation. Extremities: Bilateral pedal edema Neuro: Responds to painful stimuli Results & Data Results & Data ([facility]) Vital Signs (Past 12 Hours) Vital Signs Temp Pulse Resp BP Pulse Ox O2 Del Method FiO2 04/05/22 06:00 59 L 12 91 04/05/22 06:00 36.7 C 102/56 L 04/05/22 05:51 102/53 L 04/05/22 05:51 60 7 L 92 04/05/22 05:30 86/50 L 04/05/22 05:30 60 12 04/05/22 05:00 60 12 04/05/22 05:00 108/53 L 04/05/22 04:30 61 12 04/05/22 04:30 104/54 L 04/05/22 04:00 37 C 59 L 12 04/05/22 04:00 100/54 L 04/05/22 03:30 102/53 L 04/05/22 03:30 62 12 04/05/22 03:00 61 12 04/05/22 03:00 104/53 L 04/05/22 02:00 61 12 04/05/22 03:36 62 19 94 30 04/05/22 01:45 90/52 L 04/05/22 01:45 62 12 88 L 04/05/22 01:30 101/50 L 04/05/22 01:30 62 12 90 04/05/22 01:15 97/53 L 04/05/22 01:15 62 12 04/05/22 01:00 63 12 92 04/05/22 01:00 105/53 L 04/05/22 00:45 102/51 L 04/05/22 00:45 65 12 91 04/05/22 00:30 100/54 L 04/05/22 00:30 62 12 04/05/22 00:15 104/54 L 04/05/22 00:15 61 10 L 04/05/22 00:00 64 12 04/05/22 00:00 100/54 L 04/04/22 23:45 108/54 L 04/04/22 23:45 64 10 L 90 04/04/22 23:30 62 11 L 04/04/22 23:30 99/53 L 04/04/22 23:48 64 04/04/22 23:35 65 14 92 30 04/04/22 23:15 101/58 L 04/04/22 23:15 64 10 L 04/04/22 23:00 63 9 L 04/04/22 22:45 95/51 L 04/04/22 22:45 62 10 L 04/04/22 22:30 99/53 L 04/04/22 22:30 65 10 L 04/04/22 22:15 99/54 L 04/04/22 22:15 66 10 L 04/04/22 22:00 69 11 L 04/04/22 22:00 98/54 L 04/04/22 21:45 97/48 L 04/04/22 21:45 65 10 L 95 04/04/22 21:30 103/49 L 04/04/22 21:30 68 10 L 04/04/22 21:15 66 11 L 92 04/04/22 21:15 102/54 L 04/04/22 21:00 66 6 L 04/04/22 21:00 99/53 L 04/04/22 20:45 66 12 91 04/04/22 20:45 99/53 L 04/04/22 20:30 100/53 L 04/04/22 20:30 66 11 L 04/04/22 20:15 101/53 L 04/04/22 20:15 66 11 L 93 04/04/22 20:00 66 11 L 04/04/22 20:00 102/54 L 04/04/22 19:45 102/55 L 04/04/22 19:45 68 12 04/04/22 20:00 Mechanical Vent 35 04/04/22 20:18 67 15 97 30 Resident Activity Tracking Resident Involvement: Resident Care Provided Care Provided: Adult Hospital Medicine
[2022-04-05] MEDS: LACTULOSE SYRUP 30 GM/45 ML UDP PO SCH ×3 (08:34→19:56)
[2022-04-05] MEDS: PANTOprazole 40 MG in SYRINGE 0 ML IV SCH ×2 (08:34→19:57)
[2022-04-05] MEDS: THIAMINE HCL 100 MG in SYRINGE 9 ML IV SCH (09:02)
--- NOTE | 2022-04-05 09:12 | Billing Data ---
Date of Service April 05, 2022 Coding Level of Care Code Critical Care mins
[2022-04-05] MEDS: POTASSIUM CHLORIDE / WTR 10 MEQ/100 ML PLCT IV SCH ×8 (10:32→20:25)
[2022-04-05] MEDS: rifAXIMin 550 MG TABLET PO SCH ×2 (10:32→19:57)
[2022-04-05] MEDS ORDERED: PEPTAMEN 1.5 CAL 1,000 ML BAG OG SCH (11:00)
[2022-04-05] MEDS: TUBE FEEDING WATER FLUSH OG SCH ×4 (11:05→23:00)
[2022-04-05] MEDS ORDERED: POTASSIUM CHLORIDE / WTR 20 MEQ/100 ML PLCT IV SCH (11:15)
--- NOTE | 2022-04-05 11:58 | XRay Report ---
XR chest 1V portable HISTORY: intubation COMPARISON: Chest 04/04/2022. FINDINGS: The endotracheal tube terminates 6 mm from the kay. This should be pulled back by approx imately 2 cm. Nasogastric tube terminates in the proximal stomach. Rotated study. No pneumothorax. Th ere are low lung volumes. The heart remains enlarged. Right jugular central venous catheter terminate s in the SVC. Multifocal patchy bilateral airspace opacities persist. IMPRESSION: 1. Endotracheal tube terminates 6 mm from the kay. This should be pulled back by approximately 2 c m. 2. No change in the multifocal bilateral airspace opacities. 3. This report was called/faxed to the referring physician following dictation. ACT 112: Negative or not required by law. Electronically signed by: Louie White M.D. 04/05/2022 11:56 AM
--- NOTE | 2022-04-05 12:54 | Hospitalist Progress Note ---
Date of Service April 05, 2022 Assessment & Plan (1) Encephalopathy acute: (2) GI bleed: (3) Severe sepsis with septic shock: Plan 66-year-old lady with no known PMH/FH/SH presented to the ED 04/02 after she was found encephalopathic in her home by her landlord and found to be in severe sepsis with septic shock and multiorgan failure at presentation in the ED. Of note, patient was brought to the hospital by EMS after landlord called them due to not seeing the patient for about 3 days and hearing her scream from within the apartment complex, when EMS arrived on the scene she was found on the floor screaming/agitated and was combative. She is being managed for the following: Severe sepsis with septic shock POA Multiorgan failure Acute renal failure Metabolic encephalopathy, likely hepatic Multilobar pneumonia UTI Likely GI bleed/profound anemia POA Elevated troponin: Likely secondary to acute distress, EKG with ST and T wave abnormality. At presentation: Hb 3.5, WBC 20.94K, platelet 228K, NA 141, K4.0, creatinine 3.7, BUN 127, lactic acid 6.1, INR 1.9, NH3 115, T bili 3.0, AST 104, ALT 31, ALP 111, CK2 05, troponin 74. Lipase 115. Also at presentation, hypotensive worsening to 70s/40s, tachycardic, received blood transfusion. Was on room air with O2 sats in the 90s. She had coarse breath sounds and imaging showed pneumonia. UA suggestive of UTI. CTAP suggestive of alveolar pulmonary edema and cirrhotic liver. Toxicology screen negative. COVID-negative. Gastric occult blood positive. MRSA negative. Admitting urine culture E. coli; sensitive to ceftriaxone. Admitting blood culture 04/02, no growth so far Admitting imagings: Head CT: No acute findings. CXR: Left basilar opacity and right apical opacity suggestive of pneumonia. CTAP: Cirrhotic liver with extensive hypodense foci throughout the liver with capsular retraction, findings suggestive of hepatic asteatosis versus neoplastic etiology. A liver protocol CT is recommended on nonemergent basis. Anasarca. Right colon wall thickening suggestive of nonspecific colitis. Cholelithiasis. Lingular and left lower lobe airspace opacity which could reflect pneumonia or alveolar pulmonary edema. C-spine CT: No acute findings, osteopenia. CT chest: Multifocal pneumonia. Follow-up to resolution recommended. 04/03 brain MRI: No acute abnormality. Scattered foci of T2 hyperintensity seen within the periventricular and subcortical white matter nonspecific but favor mild microvascular ischemic change. Plan; Patient is off sedation as per ICU. She continues to be unresponsive; continue to monitor mental status. She is on rifaximin and lactulose for hepatic encephalopathy. Continue hemodynamic support as needed; Patient is status post 4 unit prbc and 1 unit FFP transfusion. H&H and repletion per ICU team. Continue mechanical ventilatory support. Patient on Rocephin 04/03. E. coli sensitive to Rocephin. patient requiring Burke-Synephrine and vasopressin. s/p EGD on 04/03 with no signs of active variceal bleed, octreotide stopped. on iv protonix. Urine output improving with creatinine slightly downtrending to 3.74. Patient in ICU care, per rag willow operator. GI evaluated. DVT prophylaxis: Teds/SCDs, no chemical prophylaxis in the setting of acute GI bleed. On iv PPI. Disposition: ICU, prognosis guarded. Admission and Anticipated Discharge Date Admission Date: April 02, 2022 Subjective Patient seen and examined at bedside. She is mechanical ventilated; was taken off sedation in the morning. She continues to be unresponsive. She is on phenylephrine and vasopressin for hemodynamic support. Urine output 1 L over 24 hours. Review of Systems Review of Systems: Unobtainable due to reduced consciousness Physical Exam Physical Exam: GENERAL: Intubated/sedated/mechanical ventilation. HEENT: + pallor, + icterus. NECK: No JVD, no neck masses. HEART: S1 and S2 heard. Regular rate and rhythm. No murmur, no gallop. RESPIRATORY SYSTEM: Normal AP diameter. No accessory muscle use. No wheezing, coarse bibasal crackles. ABDOMEN: Soft, bowel sounds present, no distention. CENTRAL NERVOUS SYSTEM: No facial droop. Sedated and intubated. EXTREMITIES: 2+ edema, no erythema seen. Urinary catheter with yellow urine collection noted in the bag. Results & Data Results & Data ([facility]) Vital Signs (Past 12 Hours) Vital Signs Temp Pulse Resp BP Pulse Ox FiO2 04/05/22 12:00 63 12 95 04/05/22 12:00 128/61 04/05/22 11:30 58 L 10 L 94 04/05/22 11:30 109/51 L 04/05/22 11:00 59 L 10 L 95 04/05/22 11:00 103/46 L 04/05/22 10:30 59 L 10 L 94 04/05/22 10:30 104/52 L 04/05/22 10:00 58 L 11 L 94 04/05/22 10:00 113/56 L 04/05/22 09:30 58 L 12 95 04/05/22 09:30 106/61 04/05/22 09:00 58 L 12 04/05/22 09:00 97/53 L 04/05/22 08:30 58 L 12 04/05/22 08:30 104/52 L 04/05/22 08:00 60 12 04/05/22 08:00 108/54 L 04/05/22 07:30 60 12 91 04/05/22 07:30 108/55 L 04/05/22 07:00 59 L 12 04/05/22 07:00 95/53 L 04/05/22 06:30 59 L 12 89 L 04/05/22 06:30 109/52 L 04/05/22 10:00 36.6 C 04/05/22 08:00 35.8 C L 04/05/22 08:10 59 L 12 93 30 04/05/22 06:00 59 L 12 91 04/05/22 06:00 36.7 C 102/56 L 04/05/22 05:51 102/53 L 04/05/22 05:51 60 7 L 92 04/05/22 05:30 86/50 L 04/05/22 05:30 60 12 04/05/22 05:00 60 12 04/05/22 05:00 108/53 L 04/05/22 04:30 61 12 04/05/22 04:30 104/54 L 04/05/22 04:00 37 C 59 L 12 04/05/22 04:00 100/54 L 04/05/22 03:30 102/53 L 04/05/22 03:30 62 12 04/05/22 03:00 61 12 04/05/22 03:00 104/53 L 04/05/22 02:00 61 12 04/05/22 03:36 62 19 94 30 04/05/22 01:45 90/52 L 04/05/22 01:45 62 12 88 L 04/05/22 01:30 101/50 L 04/05/22 01:30 62 12 90 04/05/22 01:15 97/53 L 04/05/22 01:15 62 12 04/05/22 01:00 63 12 92 04/05/22 01:00 105/53 L Laboratory Results Laboratory Results WBC 27.07 K/ul (4.8-10.8) H 04/05/22 05:30 RBC 2.86 M/uL (3.93-5.22) L 04/05/22 05:30 Hgb 9.4 g/dl (12.0-16.0) L 04/05/22 05:30 POC Hgb 8.8 g/dl (12.0-16.0) L 04/04/22 04:30 Hct 27.2 % (34.1-44.9) L 04/05/22 05:30 POC Hct 26 % (37-47) L 04/04/22 04:30 MCV 95.1 fL (80.0-100.0) 04/05/22 05:30 MCH 32.9 pg (25.0-34.0) 04/05/22 05:30 MCHC 34.6 g/dL (32.0-36.0) 04/05/22 05:30 RDW Std Deviation 61.4 fL (36.4-46.3) H 04/05/22 05:30 RDW Coeff of Jaylin 18.7 % (11.5-14.5) H 04/05/22 05:30 Plt Count 197 K/uL (130-400) 04/05/22 05:30 MPV 11.5 fL (9.4-12.3) 04/05/22 05:30 Immature Gran % (Auto) 0.8 % 04/02/22 13:02 Neut % (Auto) 73.5 % 04/02/22 13:02 Lymph % (Auto) 19.4 % 04/02/22 13:02 [place] % (Auto) 6.0 % 04/02/22 13:02 Eos % (Auto) 0.2 % 04/02/22 13:02 Baso % (Auto) 0.1 % 04/02/22 13:02 Neut # (Auto) 15.38 K/uL (1.4-6.5) H 04/02/22 13:02 Lymph # (Auto) 4.06 K/uL (1.2-3.4) H 04/02/22 13:02 [place] # (Auto) 1.26 K/uL (0.24-0.82) H 04/02/22 13:02 Eos # (Auto) 0.05 K/uL (0-0.50) 04/02/22 13:02 Baso # (Auto) 0.02 K/uL (0-0.2) 04/02/22 13:02 Immature Gran # (Auto) 0.17 K/uL (0.00-0.02) H 04/02/22 13:02 Absolute Nucleated RBC 0.11 K/uL (0-0) H 04/04/22 04:28 Nucleated RBC % (auto) 0.4 % 04/04/22 04:28 Macrocytosis Present 04/02/22 13:02 PT 16.1 Seconds (9.0-12.0) H 04/03/22 08:55 INR 1.5 (0.9-1.1) H 04/03/22 08:55 APTT 32.7 Seconds (21.0-31.0) H 04/05/22 05:30 PTT Ratio 1.2 04/05/22 05:30 Sample Site R Radial 04/05/22 06:07 POC pH 7.32 (7.35-7.45) L 04/05/22 06:07 POC pCO2 35 mmHg (35-46) 04/05/22 06:07 POC pO2 77 mmHg (80-95) L 04/05/22 06:07 POC HCO3 18 leroy/L (19-24) L 04/05/22 06:07 POC Total CO2 19 mmol/L (24-31) L 04/05/22 06:07 POC Base Excess -8.0 leroy/L (-9-1.8) 04/05/22 06:07 ABG pH (Temp Correct) 7.500 (7.35-7.45) H 04/04/22 04:30 ABG pCO2 (Temp Corrct 23 mmHg (35-46) L 04/04/22 04:30 POC ABG pO2 at Pt Temp 81 04/04/22 04:30 POC ABG O2 Sat 94.0 % (90-95) 04/05/22 06:07 Quang Test Pass 04/05/22 06:07 VBG pH 7.35 (7.36-7.41) L 04/03/22 05:57 VBG pCO2 35 mmHg (38-50) L 04/03/22 05:57 VBG pO2 40 mmHg 04/03/22 05:57 VBG HCO3 19 mmol/L 04/03/22 05:57 VBG O2 Saturation 62.0 % 04/03/22 05:57 VBG Base Excess -5.6 mEq/L 04/03/22 05:57 O2 Delivery Device Ventilator 04/05/22 06:07 POC O2 Rate 12 04/05/22 06:07 POC FiO2 30 % 04/05/22 06:07 Tidal Volume 380 04/05/22 06:07 PEEP 5 04/05/22 06:07 POC Sodium 131 mmol/L (135-144) L 04/04/22 04:30 Sodium 127 mmol/L (136-145) L 04/05/22 05:30 POC Potassium 3.3 mmol/L (3.3-5.0) 04/04/22 04:30 Potassium 3.0 mmol/L (3.5-5.1) L 04/05/22 05:30 POC Chloride 102 mmol/L (101-112) 04/02/22 13:10 Chloride 95 mmol/L (98-107) L 04/05/22 05:30 Carbon Dioxide 18 mmol/L (21-32) L 04/05/22 05:30 POC Total CO2 18 mmol/L (24-31) L 04/02/22 13:10 Anion Gap 14 (3-11) H 04/05/22 05:30 POC Anion Gap 24.0 mmol/L (16-25) 04/02/22 13:10 POC BUN 126 mg/dl (7-18) H* 04/02/22 13:10 BUN 124 mg/dl (6-23) H 04/05/22 05:30 Creatinine 3.74 mg/dl (0.6-1.2) H D 04/05/22 05:30 POC Creatinine 4.1 mg/dl (0.6-1.3) H 04/02/22 13:10 Est Cr Clr Drug Dosing 14.8 ml/min 04/05/22 05:30 Est GFR ( Amer) 13.9 ml/min 04/05/22 05:30 Est GFR (Non-Af Amer) 12.0 ml/min 04/05/22 05:30 BUN/Creatinine Ratio 33.2 (10-20) H 04/05/22 05:30 Glucose 135 mg/dl (70-99(Fasting)) H 04/05/22 05:30 POC Glucose 130 mg/dl (70-99) H 04/04/22 00:55 POC Glucose (other) 92 mg/dl (70-99) 04/02/22 13:10 Lactate 1.0 mmol/L (0.4-2.0) 04/05/22 09:22 Calcium 7.8 mg/dl (8.5-10.1) L 04/05/22 05:30 POC Ioniz Calcium Paty 1.02 mmol/l (1.12-1.32) L 04/02/22 13:10 Ionized Calcium 1.04 mmol/L (1.12-1.32) L 04/03/22 05:57 Phosphorus 7.5 mg/dl (2.5-4.9) H 04/05/22 05:30 Magnesium 2.5 mg/dl (1.7-2.4) H 04/05/22 05:30 Total Bilirubin 6.3 mg/dl (0.2-1.0) H 04/05/22 05:30 Direct Bilirubin 3.8 mg/dl (0-0.2) H 04/05/22 05:30 AST 75 U/L (13-39) H 04/05/22 05:30 ALT 31 U/L (7-52) 04/05/22 05:30 Alkaline Phosphatase 102 U/L (34-104) 04/05/22 05:30 Ammonia 65.0 umol/L (18-72) 04/05/22 09:22 Total Creatine Kinase Cancelled 04/03/22 06:02 Troponin I High Sens 296.1 pg/ml (0-14) H* 04/03/22 05:57 Total Protein 5.7 gm/dl (6.0-8.3) L 04/05/22 05:30 Albumin 2.5 gm/dl (3.4-5.0) L 04/05/22 05:30 Globulin 3.2 gm/dl (2.5-4.0) 04/05/22 05:30 Albumin/Globulin Ratio 0.8 (0.9-2) L 04/05/22 05:30 Lipase 115 U/L (11-82) H 04/02/22 13:02 TSH 1.256 uIu/ml (0.300-4.500) 04/02/22 17:22 TSH 1.268 uIu/ml (0.300-4.500) 04/02/22 17:22 Random Cortisol 32.47 mcg/dl 04/02/22 17:22 Urine Color Dark Yellow 04/02/22 13:15 Urine Appearance Turbid (Clear) A 04/02/22 13:15 Urine pH 5.0 (4.5-7.5) 04/02/22 13:15 Ur Specific [place] 1.018 (1.000-1.030) 04/02/22 13:15 Urine Protein 1+ (Negative) H 04/02/22 13:15 Urine Glucose (UA) Negative (Negative) 04/02/22 13:15 Urine Ketones Trace (Negative) H 04/02/22 13:15 Urine Blood Trace (Negative) H 04/02/22 13:15 Urine Nitrite Positive (Negative) A 04/02/22 13:15 Urine Bilirubin 1+ (Negative) H 04/02/22 13:15 Urine Urobilinogen Negative (Negative) 04/02/22 13:15 Ur Leukocyte Esterase 3+ (Negative) H 04/02/22 13:15 Urine WBC (Auto) >30 /hpf (0-5) H 04/02/22 13:15 Urine RBC (Auto) 0-4 /hpf (0-4) 04/02/22 13:15 U Hyaline Cast (Auto) 5-10 /lpf (0-5) H 04/02/22 13:15 U Epithel Cells (Auto) >30 /lpf (0-5) H 04/02/22 13:15 Urine Bacteria (Auto) 4+ (Negative) H 04/02/22 13:15 Urine Yeast Not Reportable 04/02/22 13:15 Nasal Screen MRSA (PCR) Negative (Negative) 04/02/22 21:01 Gastric Fluid pH 4 04/02/22 21:01 Gastric Occult Blood Positive (Negative) A 04/02/22 21:01 Random Vancomycin 15.8 mcg/ml (03-29) 04/03/22 05:57 Urine Opiates Screen Neg (Neg) 04/02/22 13:15 Ur Methadone, Qual Neg (Neg) 04/02/22 13:15 Urine Barbiturates Neg (Neg) 04/02/22 13:15 Ur Phencyclidine (PCP) Neg (Neg) 04/02/22 13:15 U Amphetamin/Meth Scrn Neg (Neg) 04/02/22 13:15 MDMA (Ecstasy) Screen Neg (Neg) 04/02/22 13:15 U Benzodiazepines Scrn Neg (Neg) 04/02/22 13:15 Ur Cocaine Metabolite Neg (Neg) 04/02/22 13:15 U Marijuana (THC) Screen Neg (Neg) 04/02/22 13:15 Ethyl Alcohol mg/dL < 10.0 mg/dl (<10.0) 04/02/22 13:02 SARS-CoV-2, RNA, NAAT NEGATIVE (NEGATIVE) 04/02/22 13:55 Blood Type AB Negative 04/02/22 13:02 Blood Type Recheck AB Negative 04/02/22 15:03 Antibody Screen NEGATIVE 04/02/22 13:02 Crossmatch See Detail 04/02/22 13:[address] 04/02/22 12:57 CT head/brain wo con CLINICAL HISTORY: 66 years-old Female with altered mental status. Acutely altered mental status TECHNIQUE: Multiple axial CT images of the head were obtained without contrast. A dose lowering technique was utilized adhering to the principles of ALARA. CT DOSE: 1782.68 mGy.cm COMPARISON: CT cervical spine of same day FINDINGS: No acute intracranial hemorrhage, midline shift, intracranial mass, hydrocephalus, territorial ischemia or abnormal extra-axial collection.. Mild involutional changes. White matter hypodensities suggestive of chronic li rovascular ischemic disease. Study is mildly motion degraded. The calvarium is intact. Trace mastoid effusions. Paranasal sinuses are clear. Prior bilateral lens repair. Unremarkable soft tissues. IMPRESSION: No acute intracranial abnormality. ACT 112: Negative or not required by law. The above report was generated using voice recognition software. It may contain grammatical, syntax or spelling errors. Electronically signed by: Olayinka Ramos M.D. 04/02/2022 2:00 PM Abdomen/Pelvis CT 04/02/22 13:17 CT OF THE ABDOMEN AND PELVIS WITHOUT CONTRAST CLINICAL HISTORY: Trauma. Altered mental status. COMPARISON STUDY: No previous studies for comparison. TECHNIQUE: Axial images of the abdomen and pelvis were obtained without IV contrast. Images were reviewed in the axial, sagittal, and coronal planes. Automated exposure control was utilized for the study. A dose lowering technique was utilized adhering to the principles of ALARA. FINDINGS: Please note that the chest CT will be reported separately. Airspace opacities within the lingula and left lower lobe are noted. No pneumatosis, free air or portal venous gas is present. The liver is heterogeneous with multiple hypodense foci, including a 2.9 cm exophytic focus arising from the lateral segment on axial image 134 of 491. Liver is suboptimally assessed on this unenhanced exam. Capsular retraction of the right hepatic lobe is noted. The liver is cirrhotic. Varices are noted. Size of the spleen is within normal limits. Moderate abdominal and pelvic ascites is present. There is anasarca. Gallstones within the gallbladder are noted. Unenhanced images of the adrenal glands, kidneys and pancreas are unremarkable. There is no hydronephrosis. There are no urinary calculi. No enlarged abdominal or pelvic lymph nodes are noted. There is no evidence for a bowel obstruction. Sigmoid diverticula cysts present without evidence for acute diverticulitis. Right colon wall thickening is present. Small fluid containing right inguinal hernia is present. Baum is coiled within the bladder. No acute traumatic findings are identified within the abdomen or pelvis on unenhanced exam. No acute fracture within the lumbar spine, pelvis or hips is identified. IMPRESSION: 1. No acute traumatic findings within the abdomen or pelvis on unenhanced exam. 2. Cirrhotic liver. Extensive hypodense foci throughout the liver with capsular retraction. Although the findings could represent hepatic steatosis, a neoplastic etiology such as metastatic disease or multifocal hepatocellular carcinoma/cholangiocarcinoma cannot be excluded. A liver protocol CT is recommended on nonemergent basis. 3. Sequela of portal hypertension including varices formation and moderate ascites. Anasarca. 4. Right colon wall thickening. This may be related to portal hypertension however a nonspecific colitis could appear similar. No bowel obstruction. 5. Cholelithiasis. 6. Lingular and left lower lobe airspace opacity which could reflect pneumonia or alveolar pulmonary edema. ACT 112: Positive. There are findings on this exam that require communication between the performing entity and the patient following Patient Test Result Information Act ([place] Act 112) guidelines. Electronically signed by: Franklyn Finney M.D. 04/02/2022 2:[address] 04/02/22 13:17 CT SCAN OF THE CERVICAL SPINE CLINICAL HISTORY: Trauma. COMPARISON STUDY: MRI of the cervical spine dated 10/03/2006. TECHNIQUE: CT scan of the cervical spine is performed from the skull base to the upper thoracic spine. Images are reviewed in the axial, sagittal, and coronal planes. IV contrast was not administered for this examination. A dose lowering technique was utilized adhering to the principles of ALARA. FINDINGS: Skeletal structures: The skeletal structures are well mineralized. There is no evidence of fracture or subluxation involving the cervical spine. Vertebral body height and alignment are maintained. There is straightening of the cervical lordosis with reversal centered at C5. Anterior osteophytes are noted in the lower cervical region. The odontoid process and lateral masses are intact. The atlantoaxial articulation is preserved noting mild productive degenerative change. The spinous processes appear intact. There is multilevel facet arthropathy. Intervertebral discs: There is moderate disc space narrowing at C6-C7. Only mild disc space narrowing is seen at the remaining cervical levels. Central canal: Grossly patent. Soft tissues: The prevertebral and paraspinous soft tissues are within normal limits. Mild soft tissue edema is seen in the upper chest wall. Calvarium: The visualized calvarium at the skull base appears intact. Brain parenchyma: Partially visualized brain parenchyma at the skull base is within normal limits. Sinuses and mastoids: The visualized paranasal sinuses are clear. There is a moderate left mastoid effusion. Only trace mastoid effusion is seen on the left. Lung apices: Airspace consolidation is seen at the right apex. IMPRESSION: 1. There is no evidence of fracture or subluxation involving the cervical spine. 2. Osteopenia and mild spondylotic changes above. 3. Airspace consolidation is seen at the right apex. 4. Nonspecific soft tissue edema is noted in the upper chest wall. ACT 112: Negative or not required by law. Electronically signed by: Omero Stanley M.D. 04/02/2022 1:[address] 04/02/22 13:17 CT chest diagnostic wo con CLINICAL HISTORY: trauma, ams TECHNIQUE: Multidetector row helical CT of the chest was performed. Coronal and sagittal reformations were obtained. Automated dose lowering techniques and/or adjustment according to patient size were utilized for this exam. Comparison: Comparison is made to chest radiograph 04/02/2022 FINDINGS: Exam is limited by patient motion. Lungs and pleura: Consolidative opacity with cysts noted most prominently in the right upper lobe. Groundglass and consolidation is also noted throughout, most prominently in the lingula and left lower lobe. Heart and pericardium: Cardiomegaly is seen with biatrial enlargement. Vessels: Mild atherosclerotic changes in the aorta and coronary arteries. The pulmonary trunk measures 32 mm in diameter. Mediastinum and lopez: Subcentimeter lymph nodes are seen. Chest wall and lower neck: Subcentimeter axillary lymph nodes noted. Abdomen: For findings below the diaphragm, please refer to CT of the abdomen dated the same. Bones: Degenerative changes of the thoracic spine. Old healed rib fractures are seen. IMPRESSION: Multifocal airspace opacities are seen which may represent pneumonia and/or as piration. Follow-up to resolution is recommended. ACT 112: Negative or not required by law. Electronically signed by: Johnathon Humphrey M.D. 04/02/2022 2:20 PM Brain MRI 04/03/22 08:46 Brain MRI WITHOUT CONTRAST HISTORY: agitation, altered mental status TECHNIQUE: Multiplanar multisequence MRI of the brain was performed without the use of contrast. COMPARISON STUDY: Head CT 04/02/2022. FINDINGS: There is no mass, hematoma, midline shift, or acute infarct. The paranasal sinuses are clear. The ventricles and sulci demonstrate mild age- related involutional changes. Scattered foci of T2 hyperintensity seen within the periventricular and subcortical white matter are nonspecific but suggestive of mild microvascular ischemic changes. The major vascular flow voids at the skull base are well-maintained. Small amount of fluid within the nasopharynx is likely related to the intubation. This is partially visualized right-sided nasogastric tube. Bilateral lens replacement is noted. Near complete opacification of the left mastoid air cells. IMPRESSION: No acute intracranial abnormality. Scattered foci of T2 hyperintensity seen within the periventricular and subcortical white matter are nonspecific but favor mild microvascular ischemic change. ACT 112: Negative or not required by law. Electronically signed by: Louie White M.D. 04/03/2022 3:09 PM Chest X-Ray 04/05/22 06:00 XR chest 1V portable HISTORY: intubation COMPARISON: Chest 04/04/2022. FINDINGS: The endotracheal tube terminates 6 mm from the kay. This should be pulled back by approximately 2 cm. Nasogastric tube terminates in the proximal stomach. Rotated study. No pneumothorax. There are low lung volumes. The heart remains enlarged. Right jugular central venous catheter terminates in the SVC. Multifocal patchy bilateral airspace opacities persist. IMPRESSION: 1. Endotracheal tube terminates 6 mm from the kay. This should be pulled back by approximately 2 cm. 2. No change in the multifocal bilateral airspace opacities. 3. This report was called/faxed to the referring physician following dictation. ACT 112: Negative or not required by law. Electronically signed by: Louie White M.D. 04/05/2022 11:56 AM
[2022-04-05] MEDS: cefTRIAXone SODIUM 2,000 MG in DEXTROSE 5% 50 ML IV SCH (15:58)
[2022-04-05 18:57] LABS: BUN Creatinine Ratio 32.3 (10-20); Creatinine Clr Calc Pharmacy 14.7 ml/min; Est GFR (African American) 13.9 ml/min; Potassium 3.7 mmol/L (3.5-5.1)
[2022-04-06] MEDS: TUBE FEEDING WATER FLUSH OG SCH ×5 (03:12→17:55)
[2022-04-06] MEDS: DEXTROSE 5% IV SCH (04:58)
[2022-04-06] MEDS: PHENYLEPHRINE HCL IV SCH (04:58)
[2022-04-06 06:41] LABS: Magnesium 2.5 mg/dl (1.7-2.4); Phosphorus 6.6 mg/dl (2.5-4.9)
[2022-04-06] MEDS ORDERED: FLUMAZENIL 0.1 MG/1 ML 10 ML VIAL IV STA ×2 (07:55→09:03)
[2022-04-06] MEDS ORDERED: fentaNYL citrate 100 MCG/2 ML VIAL IV PRN (07:57)
--- NOTE | 2022-04-06 08:05 | Critical Care Progress Note ---
Date of Service April 06, 2022 Assessment & Plan (1) Acute blood loss anemia: Plan: Reason Critically Ill: 66-year-old female admitted for MICHA, with severe symptomatic anemia and encephalopathy. Now (likely) terminally extubated and on comfort measures, awaiting transfer to medical unit. Neuro Sedation: Morphine drip, as needed Versed Analgesia: As needed fentanyl -Acute encephalopathy: Head CT, brain MRI negative for intracranial process. gets mildly elevated on admission. Repeat ammonia level normal, no x2. No response to trial of flumazenil 0.2 mg x2 this morning. * Discontinuing lactulose, rifaximin. Cardiac -Hypotension: Required pressor support with phenylephrine.Switched to Levophed this morning. * Phenylephrine, Levophed both discontinued Respiratory -Multilobar pneumonia: as seen on chest CT. Leukocytosis increased vs. admission. Now on mechanical ventilation. * Ceftriaxone x7 days. Now discontinued, per comfort measures. GI -Cirrhosis/Hepatic encephalopathy: repeat ammonia normal. AST/ALT pattern suggestive of alcoholic hepatic process * Ceftriaxone stopped * Lactulose 30 mg TID (or 3-4 bowel movements a day) stopped * PPI twice daily stopped * NPO. NG tube removed RENAL/LYTES -MICHA: Patient received Bumex 3 mg IV this morning. * Discontinuing daily labs ENDO -ICU hyperglycemia protocol stopped. HEME Likely discontinue daily labs. ID -Multilobar PNA, SBP prophylaxis * Stopping ceftriaxone LINES/IV ACCESS PIVs intact. DVT PROPHYLAXIS - chemical prophylaxis contraindicated Thank you for allowing us to be part of this patient's care. Please refer to Dr. Tello's documentation for any further recommendations. (2) Encephalopathy acute: (3) GI bleed: (4) MICHA (acute kidney injury): (5) UTI (urinary tract infection): (6) Leukocytosis: (7) Elevated troponin: (8) Cirrhosis: Admission and Anticipated Discharge Date Admission Date: April 02, 2022 Supervising Physician Co-Signing Physician Notes Dr. De La Vega was the resident-physician during care of patient. I separately evaluated patient for posey portions of the history and the exam. I was present during the critical portion of medical decision making, and I discussed the case with the resident. I generally agree with the findings and plan except for any additions/exceptions noted. Patient seen and examined at bedside. She was intubated She was breathing over the vent. Pupils were round and react to light but she was not following any commands. Patient has been off phenylephrine Constitutional: No acute distress HEENT: EOMI, PERRLA, scleral icterus Respiratory system: Decreased air entry bilaterally, no wheeze, rhonchi, positive crackles bilateral lower lobes CVS: S1-S2 positive, no murmurs or gallops Abdomen: Soft, nontender, positive bowel sounds x4, distended Extremities: +2 pulses bilaterally radialis/ dorsalis pedis, no cyanosis, 2 pitting edema bilateral upper and lower extremity, anasarca Neuro: Positive pupil, positive corneal, poor gag, breathing over the vent Psych: Unable to assess G/U: Positive Baum --Prophylaxis VTE: Heparin GI: Protonix Lines: Right IJ Diet: Trickle tube feeds Plan: In/out: +851, urine output 700 Patient was on midazolam when she presented to the hospital. We will give flumazenil to see if she responds. Creatinine function is high. Hepatorenal is a possibility. Give 3 of Bumex and follow urine lites. Will change phenylephrine to Levophed in future if need be Follow-up CMP. Patient is DNR/DNI and family is coming in for terminal extubation later today. In the light of liver cirrhosis and multiorgan failure which includes CKD, encephalopathy I think that we will be appropriate decision. I have personally spent 38 minutes of critical care time in the direct management of this patient. This is a life/limb threatening event. This includes time spent evaluating patient, direct bedside care, chart review, placing orders, interpretation of diagnostic studies, discussion with consultants, patient, and/or family members regarding treatment decisions, as well as other required patient management activities. This time is exclusive of all separately billable procedures, and teaching time and separate from and in addition to any other critical care service time. Subjective No acute events overnight. Patient remains intubated at bedside this morning. Review of Systems Review of Systems: All systems reviewed & are unremarkable except as noted in HPI & below Physical Exam Physical Exam: General: Asleep and intubated. In no acute distress. HEENT: PERRLA. NG tube present. CV: Regular rate and rhythm. Normal S1 and S2. No murmurs gallops or rubs. Respiratory: Minimal bibasilar crackles. No rhonchi or wheezes. Abdomen: Soft, nondistended abdomen. Reduced bowel sounds on auscultation. Extremities: Bilateral pedal edema Neuro: Responds to painful stimuli Results & Data Results & Data ([facility]) Vital Signs (Past 12 Hours) Vital Signs Temp Pulse Resp BP Pulse Ox FiO2 04/06/22 07:36 105 H 16 95 30 04/06/22 07:33 105 H 04/06/22 06:15 37.5 C 104 H 16 96 04/06/22 06:15 111/43 L 04/06/22 06:11 110/50 L 04/06/22 06:11 37.5 C 102 H 15 96 04/06/22 06:00 37.5 C 101 H 14 95 04/06/22 06:00 112/53 L 04/06/22 05:45 37.5 C 105 H 16 96 04/06/22 05:45 106/57 L 04/06/22 05:30 37.6 C H 105 H 14 96 04/06/22 05:30 121/52 L 04/06/22 05:15 117/54 L 04/06/22 05:15 37.6 C H 104 H 15 96 04/06/22 05:00 37.6 C H 103 H 15 96 04/06/22 05:00 126/54 L 04/06/22 04:45 37.7 C H 103 H 16 96 04/06/22 04:45 120/53 L 04/06/22 04:30 37.7 C H 102 H 16 96 04/06/22 04:30 123/52 L 04/06/22 04:15 37.7 C H 104 H 14 96 04/06/22 04:15 127/54 L 04/06/22 04:00 37.8 C H 103 H 15 96 04/06/22 04:00 124/52 L 04/06/22 03:45 37.8 C H 103 H 15 96 04/06/22 03:45 126/56 L 04/06/22 03:30 37.8 C H 102 H 14 96 04/06/22 03:30 126/53 L 04/06/22 03:15 37.9 C H 106 H 15 95 04/06/22 03:15 126/59 L 04/06/22 03:37 104 H 17 95 30 04/06/22 03:00 37.9 C H 104 H 15 95 04/06/22 03:00 120/56 L 04/06/22 02:45 37.8 C H 108 H 18 95 04/06/22 02:45 129/60 04/06/22 02:30 37.8 C H 106 H 16 95 04/06/22 02:30 122/59 L 04/06/22 02:15 132/60 04/06/22 02:15 37.7 C H 109 H 17 94 04/06/22 02:00 37.6 C H 109 H 18 95 04/06/22 02:00 137/64 04/06/22 01:45 37.5 C 107 H 15 95 04/06/22 01:45 125/62 04/06/22 01:30 37.5 C 108 H 16 94 04/06/22 01:30 141/61 H 04/06/22 01:00 37.3 C 107 H 16 93 04/06/22 01:00 143/70 H 04/06/22 00:30 37.2 C 102 H 16 94 04/06/22 00:30 139/59 L 04/06/22 00:00 37.1 C 99 H 14 94 04/06/22 00:00 139/66 04/05/22 23:30 37.0 C 96 H 13 95 04/05/22 23:30 122/58 L 04/05/22 23:00 36.7 C 89 24 04/05/22 23:00 101/62 04/05/22 22:30 36.5 C 76 13 96 04/05/22 22:30 87/50 L 04/05/22 22:22 36.5 C 75 11 L 97 04/05/22 22:22 88/41 L 04/05/22 23:00 72 18 99 30 04/05/22 22:00 36.4 C L 69 10 L 97 04/05/22 22:00 85/44 L 04/05/22 21:30 36.3 C L 68 11 L 96 04/05/22 21:30 79/49 L 04/05/22 21:00 36.2 C L 70 10 L 95 04/05/22 21:00 86/50 L 04/05/22 20:30 36.2 C L 68 11 L 95 04/05/22 20:30 78/46 L Resident Activity Tracking Resident Involvement: Resident Care Provided Care Provided: Adult Hospital Medicine
--- NOTE | 2022-04-06 08:48 | XRay Report ---
XR chest 1V portable HISTORY: intubation COMPARISON: Chest 04/05/2022. FINDINGS: Endotracheal tube is been pulled back and terminates approximately 2.8 cm from the kay. No pneumothorax. The heart remains mildly enlarged. Bilateral patchy airspace opacities have slightly improved. There are low lung volumes. Nasogastric tube terminates in the stomach. Right jugular cent ral venous catheter terminates at the SVC. IMPRESSION: 1. Satisfactory support line placement. 2. Slight improvement in the patchy bilateral airspace opacities. ACT 112: Negative or not required by law. Electronically signed by: Louie White M.D. 04/06/2022 8:46 AM
[2022-04-06 09:32] LABS: Albumin Globulin Ratio 0.7 (0.9-2); Albumin Level 2.1 gm/dl (3.4-5.0); BUN Creatinine Ratio 33.6 (10-20); Bilirubin,Total 6.2 mg/dl (0.2-1.0); Calcium 7.7 mg/dl (8.5-10.1); Creatinine Clr Calc Pharmacy 16.5 ml/min; Est GFR (African American) 15.2 ml/min; Est GFR (Non-African American) 13.1 ml/min; Globulin 2.9 gm/dl (2.5-4.0); Potassium 3.7 mmol/L (3.5-5.1)
[2022-04-06] MEDS ORDERED: NOREPINEPHRINE BIT IV SCH (10:00)
[2022-04-06] MEDS ORDERED: BUMETANIDE 3 MG in SYRINGE 0 ML IV ONE (10:00)
[2022-04-06] MEDS ORDERED: SODIUM CHLORIDE 0.9% IV SCH (10:00)
[2022-04-06] MEDS: rifAXIMin 550 MG TABLET PO SCH (10:11)
[2022-04-06] MEDS: THIAMINE HCL 100 MG in SYRINGE 9 ML IV SCH (10:11)
[2022-04-06] MEDS: LACTULOSE SYRUP 30 GM/45 ML UDP PO SCH (10:11)
[2022-04-06] MEDS ORDERED: STAT IV Infusion **Titration per Protocol STA (10:42)
[2022-04-06] MEDS ORDERED: MIDAZOLAM HCL 125 MG/250 ML BAG IV PRN (10:42)
[2022-04-06] MEDS: PANTOprazole 40 MG in SYRINGE 0 ML IV SCH (10:55)
[2022-04-06] MEDS ORDERED: MoRPHine SULF/NSS 250 MG/250 ML BTL IV SCH (11:00)
[2022-04-06] MEDS: MoRPHine BOLUS from BAG IV PRN ×4 (11:15→14:42)
[2022-04-06] MEDS: MIDAZOLAM BOLUS FROM BAG IV PRN ×2 (11:50→14:03)
--- NOTE | 2022-04-06 13:58 | Hospitalist Progress Note ---
Date of Service April 06, 2022 Assessment & Plan (1) Encephalopathy acute: (2) GI bleed: (3) Severe sepsis with septic shock: Plan 66-year-old lady with no known PMH/FH/SH presented to the ED 04/02 after she was found encephalopathic in her home by her landlord and found to be in severe sepsis with septic shock and multiorgan failure at presentation in the ED. Of note, patient was brought to the hospital by EMS after landlord called them due to not seeing the patient for about 3 days and hearing her scream from within the apartment complex, when EMS arrived on the scene she was found on the floor screaming/agitated and was combative. She is being managed for the following: Severe sepsis with septic shock POA Multiorgan failure Acute renal failure Acute hepatic Encephalopathy Multilobar pneumonia UTI Likely GI bleed/profound anemia POA Demand Ishcemia At presentation: Hb 3.5, WBC 20.94K, platelet 228K, NA 141, K4.0, creatinine 3.7, BUN 127, lactic acid 6.1, INR 1.9, NH3 115, T bili 3.0, AST 104, ALT 31, ALP 111, CK2 05, troponin 74. Lipase 115. Also at presentation, hypotensive worsening to 70s/40s, tachycardic, received blood transfusion. Was on room air with O2 sats in the 90s. She had coarse breath sounds and imaging showed pneumonia. UA suggestive of UTI. CTAP suggestive of alveolar pulmonary edema and cirrhotic liver. Toxicology screen negative. COVID-negative. Gastric occult blood positive. MRSA negative. Admitting urine culture E. coli; sensitive to ceftriaxone. Admitting blood culture 04/02, no growth so far Admitting imagings: Head CT: No acute findings. CXR: Left basilar opacity and right apical opacity suggestive of pneumonia. CTAP: Cirrhotic liver with extensive hypodense foci throughout the liver with capsular retraction, findings suggestive of hepatic asteatosis versus neoplastic etiology. A liver protocol CT is recommended on nonemergent basis. Anasarca. Right colon wall thickening suggestive of nonspecific colitis. Cholelithiasis. Lingular and left lower lobe airspace opacity which could reflect pneumonia or alveolar pulmonary edema. C-spine CT: No acute findings, osteopenia. CT chest: Multifocal pneumonia. Follow-up to resolution recommended. 04/03 brain MRI: No acute abnormality. Scattered foci of T2 hyperintensity seen within the periventricular and subcortical white matter nonspecific but favor mild microvascular ischemic change. Plan; Patient underwent palliative extubation today in the ICU after discussion between the family members and the ICU team. Patient switched to comfort care measures. On morphine and Versed drip. Transfer to medical floor to continue comfort care measures. DVT prophylaxis: Teds/SCDs, no chemical prophylaxis in the setting of acute GI bleed. On iv PPI. Disposition: ICU, prognosis guarded. Contact information- Emelia (sister)- [phone] Admission and Anticipated Discharge Date Admission Date: April 02, 2022 Subjective Patient seen and examined at bedside in the morning and in afternoon. Her family ( Sister, Father and mother) were at bedside during the afternoon. Patient underwent extubation and was changed to comfort care. Review of Systems Review of Systems: Unobtainable due to reduced consciousness Physical Exam Physical Exam: GENERAL: Comatose; comfortable. HEENT: + pallor, + icterus. NECK: No JVD, no neck masses. HEART: S1 and S2 heard. Regular rate and rhythm. No murmur, no gallop. RESPIRATORY SYSTEM: , coarse bibasal crackles present ABDOMEN: Soft, bowel sounds present, no distention. CENTRAL NERVOUS SYSTEM: No facial droop. EXTREMITIES: 2+ edema, no erythema seen. Urinary catheter with yellow urine collection noted in the bag. Results & Data Results & Data ([facility]) Vital Signs (Past 12 Hours) Vital Signs Temp Pulse Resp BP Pulse Ox FiO2 04/06/22 11:20 36.5 C 94 H 14 95 04/06/22 11:20 106/45 L 04/06/22 11:15 36.6 C 100 H 19 94 04/06/22 11:15 108/52 L 04/06/22 11:10 36.6 C 100 H 14 95 04/06/22 11:10 118/45 L 04/06/22 11:05 36.6 C 98 H 15 95 04/06/22 11:05 102/61 04/06/22 11:00 36.6 C 100 H 12 95 04/06/22 11:00 100/47 L 04/06/22 10:55 36.7 C 128 H 15 95 04/06/22 10:55 106/45 L 04/06/22 10:50 36.7 C 96 H 19 96 04/06/22 10:48 114/52 L 04/06/22 10:48 36.7 C 100 H 17 96 04/06/22 10:45 36.7 C 101 H 19 96 04/06/22 10:45 122/53 L 04/06/22 10:40 36.8 C 98 H 17 97 04/06/22 10:35 36.8 C 98 H 13 98 04/06/22 10:30 36.7 C 101 H 22 98 04/06/22 10:30 131/60 04/06/22 10:25 36.8 C 100 H 20 98 04/06/22 10:20 36.8 C 102 H 17 98 04/06/22 10:15 36.8 C 100 H 18 98 04/06/22 10:15 127/56 L 04/06/22 10:10 36.8 C 95 H 18 98 04/06/22 10:05 36.8 C 101 H 15 99 04/06/22 10:00 36.8 C 95 H 22 98 04/06/22 10:00 127/59 L 04/06/22 09:55 36.8 C 100 H 18 99 04/06/22 09:50 36.8 C 99 H 26 H 98 04/06/22 09:45 36.8 C 94 H 17 99 04/06/22 09:45 120/64 04/06/22 09:40 36.8 C 96 H 26 H 98 04/06/22 09:35 36.9 C 94 H 16 98 04/06/22 09:30 36.9 C 96 H 16 99 04/06/22 09:30 116/88 04/06/22 09:25 36.9 C 94 H 17 98 04/06/22 09:20 36.9 C 93 H 24 99 04/06/22 09:15 36.9 C 90 17 04/06/22 09:15 114/56 L 04/06/22 09:11 36.9 C 77 12 98 04/06/22 09:11 87/46 L 04/06/22 09:10 36.9 C 77 14 98 04/06/22 09:05 36.9 C 79 12 98 04/06/22 09:00 36.9 C 78 14 98 04/06/22 09:00 89/47 L 04/06/22 08:55 36.9 C 79 14 98 04/06/22 08:50 36.9 C 81 12 98 04/06/22 08:45 36.9 C 83 14 98 04/06/22 07:36 105 H 16 95 30 04/06/22 07:33 105 H 04/06/22 06:15 37.5 C 104 H 16 96 04/06/22 06:15 111/43 L 04/06/22 06:11 110/50 L 04/06/22 06:11 37.5 C 102 H 15 96 04/06/22 06:00 37.5 C 101 H 14 95 04/06/22 06:00 112/53 L 04/06/22 05:45 37.5 C 105 H 16 96 04/06/22 05:45 106/57 L 04/06/22 05:30 37.6 C H 105 H 14 96 04/06/22 05:30 121/52 L 04/06/22 05:15 117/54 L 04/06/22 05:15 37.6 C H 104 H 15 96 04/06/22 05:00 37.6 C H 103 H 15 96 04/06/22 05:00 126/54 L 04/06/22 04:45 37.7 C H 103 H 16 96 04/06/22 04:45 120/53 L 04/06/22 04:30 37.7 C H 102 H 16 96 04/06/22 04:30 123/52 L 04/06/22 04:15 37.7 C H 104 H 14 96 04/06/22 04:15 127/54 L 04/06/22 04:00 37.8 C H 103 H 15 96 04/06/22 04:00 124/52 L 04/06/22 03:45 37.8 C H 103 H 15 96 04/06/22 03:45 126/56 L 04/06/22 03:30 37.8 C H 102 H 14 96 04/06/22 03:30 126/53 L 04/06/22 03:15 37.9 C H 106 H 15 95 04/06/22 03:15 126/59 L 04/06/22 03:37 104 H 17 95 30 04/06/22 03:00 37.9 C H 104 H 15 95 04/06/22 03:00 120/56 L 04/06/22 02:45 37.8 C H 108 H 18 95 04/06/22 02:45 129/60 04/06/22 02:30 37.8 C H 106 H 16 95 04/06/22 02:30 122/59 L 04/06/22 02:15 132/60 04/06/22 02:15 37.7 C H 109 H 17 94 04/06/22 02:00 37.6 C H 109 H 18 95 04/06/22 02:00 137/64 Laboratory Results Laboratory Results WBC 27.07 K/ul (4.8-10.8) H 04/05/22 05:30 RBC 2.86 M/uL (3.93-5.22) L 04/05/22 05:30 Hgb 9.4 g/dl (12.0-16.0) L 04/05/22 05:30 POC Hgb 8.8 g/dl (12.0-16.0) L 04/04/22 04:30 Hct 27.2 % (34.1-44.9) L 04/05/22 05:30 POC Hct 26 % (37-47) L 04/04/22 04:30 MCV 95.1 fL (80.0-100.0) 04/05/22 05:30 MCH 32.9 pg (25.0-34.0) 04/05/22 05:30 MCHC 34.6 g/dL (32.0-36.0) 04/05/22 05:30 RDW Std Deviation 61.4 fL (36.4-46.3) H 04/05/22 05:30 RDW Coeff of Jaylin 18.7 % (11.5-14.5) H 04/05/22 05:30 Plt Count 197 K/uL (130-400) 04/05/22 05:30 MPV 11.5 fL (9.4-12.3) 04/05/22 05:30 Immature Gran % (Auto) 0.8 % 04/02/22 13:02 Neut % (Auto) 73.5 % 04/02/22 13:02 Lymph % (Auto) 19.4 % 04/02/22 13:02 [place] % (Auto) 6.0 % 04/02/22 13:02 Eos % (Auto) 0.2 % 04/02/22 13:02 Baso % (Auto) 0.1 % 04/02/22 13:02 Neut # (Auto) 15.38 K/uL (1.4-6.5) H 04/02/22 13:02 Lymph # (Auto) 4.06 K/uL (1.2-3.4) H 04/02/22 13:02 [place] # (Auto) 1.26 K/uL (0.24-0.82) H 04/02/22 13:02 Eos # (Auto) 0.05 K/uL (0-0.50) 04/02/22 13:02 Baso # (Auto) 0.02 K/uL (0-0.2) 04/02/22 13:02 Immature Gran # (Auto) 0.17 K/uL (0.00-0.02) H 04/02/22 13:02 Absolute Nucleated RBC 0.11 K/uL (0-0) H 04/04/22 04:28 Nucleated RBC % (auto) 0.4 % 04/04/22 04:28 Macrocytosis Present 04/02/22 13:02 PT 16.1 Seconds (9.0-12.0) H 04/03/22 08:55 INR 1.5 (0.9-1.1) H 04/03/22 08:55 APTT 32.7 Seconds (21.0-31.0) H 04/05/22 05:30 PTT Ratio 1.2 04/05/22 05:30 Sample Site R Radial 04/05/22 06:07 POC pH 7.32 (7.35-7.45) L 04/05/22 06:07 POC pCO2 35 mmHg (35-46) 04/05/22 06:07 POC pO2 77 mmHg (80-95) L 04/05/22 06:07 POC HCO3 18 leroy/L (19-24) L 04/05/22 06:07 POC Total CO2 19 mmol/L (24-31) L 04/05/22 06:07 POC Base Excess -8.0 leroy/L (-9-1.8) 04/05/22 06:07 ABG pH (Temp Correct) 7.500 (7.35-7.45) H 04/04/22 04:30 ABG pCO2 (Temp Corrct 23 mmHg (35-46) L 04/04/22 04:30 POC ABG pO2 at Pt Temp 81 04/04/22 04:30 POC ABG O2 Sat 94.0 % (90-95) 04/05/22 06:07 Quang Test Pass 04/05/22 06:07 VBG pH 7.35 (7.36-7.41) L 04/03/22 05:57 VBG pCO2 35 mmHg (38-50) L 04/03/22 05:57 VBG pO2 40 mmHg 04/03/22 05:57 VBG HCO3 19 mmol/L 04/03/22 05:57 VBG O2 Saturation 62.0 % 04/03/22 05:57 VBG Base Excess -5.6 mEq/L 04/03/22 05:57 O2 Delivery Device Ventilator 04/05/22 06:07 POC O2 Rate 12 04/05/22 06:07 POC FiO2 30 % 04/05/22 06:07 Tidal Volume 380 04/05/22 06:07 PEEP 5 04/05/22 06:07 POC Sodium 131 mmol/L (135-144) L 04/04/22 04:30 Sodium 127 mmol/L (136-145) L 04/06/22 08:13 POC Potassium 3.3 mmol/L (3.3-5.0) 04/04/22 04:30 Potassium 3.7 mmol/L (3.5-5.1) 04/06/22 08:13 POC Chloride 102 mmol/L (101-112) 04/02/22 13:10 Chloride 96 mmol/L (98-107) L 04/06/22 08:13 Carbon Dioxide 19 mmol/L (21-32) L 04/06/22 08:13 POC Total CO2 18 mmol/L (24-31) L 04/02/22 13:10 Anion Gap 12 (3-11) H 04/06/22 08:13 POC Anion Gap 24.0 mmol/L (16-25) 04/02/22 13:10 POC BUN 126 mg/dl (7-18) H* 04/02/22 13:10 BUN 117 mg/dl (6-23) H 04/06/22 08:13 Creatinine 3.48 mg/dl (0.6-1.2) H 04/06/22 08:13 POC Creatinine 4.1 mg/dl (0.6-1.3) H 04/02/22 13:10 Est Cr Clr Drug Dosing 16.5 ml/min 04/06/22 08:13 Est GFR ( Amer) 15.2 ml/min 04/06/22 08:13 Est GFR (Non-Af Amer) 13.1 ml/min 04/06/22 08:13 BUN/Creatinine Ratio 33.6 (10-20) H 04/06/22 08:13 Glucose 121 mg/dl (70-99(Fasting)) H 04/06/22 08:13 POC Glucose 125 mg/dl (70-99) H 04/05/22 16:53 POC Glucose (other) 92 mg/dl (70-99) 04/02/22 13:10 Lactate 1.0 mmol/L (0.4-2.0) 04/05/22 09:22 Calcium 7.7 mg/dl (8.5-10.1) L 04/06/22 08:13 POC Ioniz Calcium Paty 1.02 mmol/l (1.12-1.32) L 04/02/22 13:10 Ionized Calcium 1.04 mmol/L (1.12-1.32) L 04/03/22 05:57 Phosphorus 6.6 mg/dl (2.5-4.9) H 04/06/22 05:55 Magnesium 2.5 mg/dl (1.7-2.4) H 04/06/22 05:55 Total Bilirubin 6.2 mg/dl (0.2-1.0) H 04/06/22 08:13 Direct Bilirubin 3.8 mg/dl (0-0.2) H 04/05/22 05:30 AST 63 U/L (13-39) H 04/06/22 08:13 ALT 27 U/L (7-52) 04/06/22 08:13 Alkaline Phosphatase 97 U/L (34-104) 04/06/22 08:13 Ammonia 48.0 umol/L (18-72) 04/06/22 08:17 Total Creatine Kinase Cancelled 04/03/22 06:02 Troponin I High Sens 296.1 pg/ml (0-14) H* 04/03/22 05:57 Total Protein 5.0 gm/dl (6.0-8.3) L 04/06/22 08:13 Albumin 2.1 gm/dl (3.4-5.0) L 04/06/22 08:13 Globulin 2.9 gm/dl (2.5-4.0) 04/06/22 08:13 Albumin/Globulin Ratio 0.7 (0.9-2) L 04/06/22 08:13 Lipase 115 U/L (11-82) H 04/02/22 13:02 TSH 1.256 uIu/ml (0.300-4.500) 04/02/22 17:22 TSH 1.268 uIu/ml (0.300-4.500) 04/02/22 17:22 Random Cortisol 32.47 mcg/dl 04/02/22 17:22 Urine Color Dark Yellow 04/02/22 13:15 Urine Appearance Turbid (Clear) A 04/02/22 13:15 Urine pH 5.0 (4.5-7.5) 04/02/22 13:15 Ur Specific [place] 1.018 (1.000-1.030) 04/02/22 13:15 Urine Protein 1+ (Negative) H 04/02/22 13:15 Urine Glucose (UA) Negative (Negative) 04/02/22 13:15 Urine Ketones Trace (Negative) H 04/02/22 13:15 Urine Blood Trace (Negative) H 04/02/22 13:15 Urine Nitrite Positive (Negative) A 04/02/22 13:15 Urine Bilirubin 1+ (Negative) H 04/02/22 13:15 Urine Urobilinogen Negative (Negative) 04/02/22 13:15 Ur Leukocyte Esterase 3+ (Negative) H 04/02/22 13:15 Urine WBC (Auto) >30 /hpf (0-5) H 04/02/22 13:15 Urine RBC (Auto) 0-4 /hpf (0-4) 04/02/22 13:15 U Hyaline Cast (Auto) 5-10 /lpf (0-5) H 04/02/22 13:15 U Epithel Cells (Auto) >30 /lpf (0-5) H 04/02/22 13:15 Urine Bacteria (Auto) 4+ (Negative) H 04/02/22 13:15 Urine Yeast Not Reportable 04/02/22 13:15 Nasal Screen MRSA (PCR) Negative (Negative) 04/02/22 21:01 Gastric Fluid pH 4 04/02/22 21:01 Gastric Occult Blood Positive (Negative) A 04/02/22 21:01 Random Vancomycin 15.8 mcg/ml (10-20) 04/03/22 05:57 Urine Opiates Screen Neg (Neg) 04/02/22 13:15 Ur Methadone, Qual Neg (Neg) 04/02/22 13:15 Urine Barbiturates Neg (Neg) 04/02/22 13:15 Ur Phencyclidine (PCP) Neg (Neg) 04/02/22 13:15 U Amphetamin/Meth Scrn Neg (Neg) 04/02/22 13:15 MDMA (Ecstasy) Screen Neg (Neg) 04/02/22 13:15 U Benzodiazepines Scrn Neg (Neg) 04/02/22 13:15 Ur Cocaine Metabolite Neg (Neg) 04/02/22 13:15 U Marijuana (THC) Screen Neg (Neg) 04/02/22 13:15 Ethyl Alcohol mg/dL < 10.0 mg/dl (<10.0) 04/02/22 13:02 SARS-CoV-2, RNA, NAAT NEGATIVE (NEGATIVE) 04/02/22 13:55 Blood Type AB Negative 04/02/22 13:02 Blood Type Recheck AB Negative 04/02/22 15:03 Antibody Screen NEGATIVE 04/02/22 13:02 Crossmatch See Detail 04/02/22 13:[address] 04/02/22 12:57 CT head/brain wo con CLINICAL HISTORY: 66 years-old Female with altered mental status. Acutely altered mental status TECHNIQUE: Multiple axial CT images of the head were obtained without contrast. A dose lowering technique was utilized adhering to the principles of ALARA. CT DOSE: 1782.68 mGy.cm COMPARISON: CT cervical spine of same day FINDINGS: No acute intracranial hemorrhage, midline shift, intracranial mass, hydrocephalus, territorial ischemia or abnormal extra-axial collection.. Mild involutional changes. White matter hypodensities suggestive of chronic microvascular ischemic disease. Study is mildly motion degraded. The calvarium is intact. Trace mastoid effusions. Paranasal sinuses are clear. Prior bilateral lens repair. Unremarkable soft tissues. IMPRESSION: No acute intracranial abnormality. ACT 112: Negative or not required by law. The above report was generated using voice recognition software. It may contain grammatical, syntax or spelling errors. Electronically signed by: Olayinka Ramos M.D. 04/02/2022 2:00 PM Abdomen/Pelvis CT 04/02/22 13:17 CT OF THE ABDOMEN AND PELVIS WITHOUT CONTRAST CLINICAL HISTORY: Trauma. Altered mental status. COMPARISON STUDY: No previous studies for comparison. TECHNIQUE: Axial images of the abdomen and pelvis were obtained without IV contrast. Images were reviewed in the axial, sagittal, and coronal planes. Automated exposure control was utilized for the study. A dose lowering technique was utilized adhering to the principles of ALARA. FINDINGS: Please note that the chest CT will be reported separately. Airspace opacities within the lingula and left lower lobe are noted. No pneumatosis, free air or portal venous gas is present. The liver is heterogeneous with multiple hypodense foci, including a 2.9 cm exophytic focus arising from the lateral segment on axial image 134 of 491. Liver is suboptimally assessed on this unenhanced exam. Capsular retraction of the right hepatic lobe is noted. The liver is cirrhotic. Varices are noted. Size of the spleen is within normal limits. Moderate abdominal and pelvic ascites is present. There is anasarca. Gallstones within the gallbladder are noted. Unenhanced images of the adrenal glands, kidneys and pancreas are unremarkable. There is no hydronephrosis. There are no urinary calculi. No enlarged abdominal or pelvic lymph nodes are noted. There is no evidence for a bowel obstruction. Sigmoid diverticula cysts present without evidence for acute diverticulitis. Right colon wall thickening is present. Small fluid containing right inguinal hernia is present. Baum is coiled within the bladder. No acute traumatic findings are identified within the abdomen or pelvis on unenhanced exam. No acute fracture within the lumbar spine, pelvis or hips is identified. IMPRESSION: 1. No acute traumatic findings within the abdomen or pelvis on unenhanced exam. 2. Cirrhotic liver. Extensive hypodense foci throughout the liver with capsular retraction. Although the findings could represent hepatic steatosis, a neoplastic etiology such as metastatic disease or multifocal hepatocellular carcinoma/cholangiocarcinoma cannot be excluded. A liver protocol CT is recommended on nonemergent basis. 3. Sequela of portal hypertension including varices formation and moderate ascites. Anasarca. 4. Right colon wall thickening. This may be related to portal hypertension however a nonspecific colitis could appear similar. No bowel obstruction. 5. Cholelithiasis. 6. Lingular and left lower lobe airspace opacity which could reflect pneumonia or alveolar pulmonary edema. ACT 112: Positive. There are findings on this exam that require communication between the performing entity and the patient following Patient Test Result Information Act ([place] Act 112) guidelines. Electronically signed by: Franklyn Finney M.D. 04/02/2022 2:[address] 04/02/22 13:17 CT SCAN OF THE CERVICAL SPINE CLINICAL HISTORY: Trauma. COMPARISON STUDY: MRI of the cervical spine dated 10/03/2006. TECHNIQUE: CT scan of the cervical spine is performed from the skull base to the upper thoracic spine. Images are reviewed in the axial, sagittal, and coronal planes. IV contrast was not administered for this examination. A dose lowering technique was utilized adhering to the principles of ALARA. FINDINGS: Skeletal structures: The skeletal structures are well mineralized. There is no evidence of fracture or subluxation involving the cervical spine. Vertebral body height and alignment are maintained. There is straightening of the cervical lordosis with reversal centered at C5. Anterior osteophytes are noted in the lower cervical region. The odontoid process and lateral masses are intact. The atlantoaxial articulation is preserved noting mild productive degenerative change. The spinous processes appear intact. There is multilevel facet arthropathy. Intervertebral discs: There is moderate disc space narrowing at C6-C7. Only mild disc space narrowing is seen at the remaining cervical levels. Central canal: Grossly patent. Soft tissues: The prevertebral and paraspinous soft tissues are within normal limits. Mild soft tissue edema is seen in the upper chest wall. Calvarium: The visualized calvarium at the skull base appears intact. Brain parenchyma: Partially visualized brain parenchyma at the skull base is within normal limits. Sinuses and mastoids: The visualized paranasal sinuses are clear. There is a moderate left mastoid effusion. Only trace mastoid effusion is seen on the left. Lung apices: Airspace consolidation is seen at the right apex. IMPRESSION: 1. There is no evidence of fracture or subluxation involving the cervical spine. 2. Osteopenia and mild spondylotic changes above. 3. Airspace consolidation is seen at the right apex. 4. Nonspecific soft tissue edema is noted in the upper chest wall. ACT 112: Negative or not required by law. Electronically signed by: Omero Stanley M.D. 04/02/2022 1:[address] 04/02/22 13:17 CT chest diagnostic wo con CLINICAL HISTORY: trauma, ams TECHNIQUE: Multidetector row helical CT of the chest was performed. Coronal and sagittal reformations were obtained. Automated dose lowering techniques and/or adjustment according to patient size were utilized for this exam. Comparison: Comparison is made to chest radiograph 04/02/2022 FINDINGS: Exam is limited by patient motion. Lungs and pleura: Consolidative opacity with cysts noted most prominently in the right upper lobe. Groundglass and consolidation is also noted throughout, most prominently in the lingula and left lower lobe. Heart and pericardium: Cardiomegaly is seen with biatrial enlargement. Vessels: Mild atherosclerotic changes in the aorta and coronary arteries. The pulmonary trunk measures 32 mm in diameter. Mediastinum and lopez: Subcentimeter lymph nodes are seen. Chest wall and lower neck: Subcentimeter axillary lymph nodes noted. Abdomen: For findings below the diaphragm, please refer to CT of the abdomen dated the same. Bones: Degenerative changes of the thoracic spine. Old healed rib fractures are seen. IMPRESSION: Multifocal airspace opacities are seen which may represent pneumonia and/or aspiration. Follow-up to resolution is recommended. ACT 112: Negative or not required by law. Electronically signed by: Johnathon Humphrey M.D. 04/02/2022 2:20 PM Brain MRI 04/03/22 08:46 Brain MRI WITHOUT CONTRAST HISTORY: agitation, altered mental status TECHNIQUE: Multiplanar multisequence MRI of the brain was performed without the use of contrast. COMPARISON STUDY: Head CT 04/02/2022. FINDINGS: There is no mass, hematoma, midline shift, or acute infarct. The paranasal sinuses are clear. The ventricles and sulci demonstrate mild age- related involutional changes. Scattered foci of T2 hyperintensity seen within the periventricular and subcortical white matter are nonspecific but suggestive of mild microvascular ischemic changes. The major vascular flow voids at the skull base are well-maintained. Small amount of fluid within the nasopharynx is likely related to the intubation. This is partially visualized right-sided nasogastric tube. Bilateral lens replacement is noted. Near complete opacification of the left mastoid air cells. IMPRESSION: No acute intracranial abnormality. Scattered foci of T2 hyperintensity seen within the periventricular and subcortical white matter are nonspecific but favor mild microvascular ischemic change. ACT 112: Negative or not required by law. Electronically signed by: Louie White M.D. 04/03/2022 3:09 PM Chest X-Ray 04/06/22 06:00 XR chest 1V portable HISTORY: intubation COMPARISON: Chest 04/05/2022. FINDINGS: Endotracheal tube is been pulled back and terminates approximately 2.8 cm from the kay. No pneumothorax. The heart remains mildly enlarged. Bilateral patchy airspace opacities have slightly improved. There are low lung volumes. Nasogastric tube terminates in the stomach. Right jugular central venous catheter terminates at the SVC. IMPRESSION: 1. Satisfactory support line placement. 2. Slight improvement in the patchy bilateral airspace opacities. ACT 112: Negative or not required by law. Electronically signed by: Louie White M.D. 04/06/2022 8:46 AM
--- NOTE | 2022-04-06 15:11 | Billing Data ---
Date of Service April 06, 2022 Coding Level of Care Code Critical Care 1st 30-74 mins Time Spent (min) 38
[2022-04-07] MEDS ORDERED: ONDANSETRON 4 MG OD TAB SL PRN (11:05)
[2022-04-07] MEDS ORDERED: GLYCOPYRROLATE 0.2 MG/ML VIAL IV PRN (11:05)
[2022-04-07] MEDS ORDERED: HYDROmorphone INJ 0.5 MG/0.5 ML SYR IV PRN (11:05)
[2022-04-07] MEDS ORDERED: LORazepam 0.5 MG TAB PO PRN (11:05)
[2022-04-07] MEDS ORDERED: LORazepam 0.5 MG in SYRINGE 0 ML IV PRN (11:05)
[2022-04-07] MEDS ORDERED: ONDANSETRON INJ 2 MG/ML 2 ML VIAL IV PRN (11:05)
--- NOTE | 2022-04-07 11:08 | Hospitalist Progress Note ---
Date of Service April 07, 2022 Assessment & Plan (1) Encephalopathy acute: (2) GI bleed: (3) Severe sepsis with septic shock: Plan 66-year-old lady with no known PMH/FH/SH presented to the ED 04/02 after she was found encephalopathic in her home by her landlord and found to be in severe sepsis with septic shock and multiorgan failure at presentation in the ED. Of note, patient was brought to the hospital by EMS after landlord called them due to not seeing the patient for about 3 days and hearing her scream from within the apartment complex, when EMS arrived on the scene she was found on the floor screaming/agitated and was combative. She was brought to the hospital and was found to have multiorgan failure with acute renal failure, acute hepatic encephalopathy and multilobar pneumonia. She was intubated and was admitted to ICU. Patient continued to be unconscious despite being off sedatives. Decision was made by family to do terminal extubation on 04/06 and start comfort care measures. She was started on morphine and Versed drip; transfer to floor to continue comfort care measures. Severe sepsis with septic shock POA Multiorgan failure Acute renal failure Acute hepatic Encephalopathy Multilobar pneumonia UTI Likely GI bleed/profound anemia POA Demand Ishcemia Comfort Care Plan; Continue comfort care measures. Morphine and Versed drip Also on Dilaudid as needed and glycopyrrolate. DVT prophylaxis: none Disposition: Medical floor; on comfort care. Contact information- Emelia ()- [phone] Admission and Anticipated Discharge Date Admission Date: April 02, 2022 Subjective Patient seen and examined at bedside. She appears to be comfortable; not in any distress. She has on morphine and Versed drip. Review of Systems Review of Systems: Unobtainable due to reduced consciousness Physical Exam Physical Exam: GENERAL: Comatose; comfortable. HEENT: + pallor, + icterus. NECK: No JVD, no neck masses. HEART: S1 and S2 heard. Regular rate and rhythm. No murmur, no gallop. RESPIRATORY SYSTEM: , coarse bibasal crackles present ABDOMEN: Soft, bowel sounds present, no distention. CENTRAL NERVOUS SYSTEM: No facial droop. EXTREMITIES: 2+ edema, no erythema seen. Results & Data Results & Data ([facility]) Vital Signs (Past 12 Hours) Vital Signs Temp Pulse Resp BP Pulse Ox O2 Del Method 04/07/22 08:14 35.8 C L 88 4 L 77/33 L 88 L Nasal Cannula
--- NOTE | 2022-04-07 18:19 | Communication Note ---
Date of Service: April 07, 2022 Patient seen at bedside. No spontaneous breathing noted, no heart sounds on auscultation. Patient pronounced at 6:06 PM on 04/07/2022. Her sister Emelia was at her bedside. Provided support.
--- NOTE | 2022-04-07 18:19 | Discharge Summary ---
Date of Service April 07, 2022 Admission HPI Per Admitting Provider This is a 66 yo F without known past medical history, family history or surgical history who presents to the ER today due to severe septic shock and multi organ system involvement. Pt was brought to the hospital by EMS after landlord called them due to not seeing the patient for about 3 days and hearing her scream from within the apartment complex. When EMS arrived on the scene, she was found down on the floor, screaming, agitated and was combative. She was found to have fecal and urinary incontinence. Unknown how long the patient had been like this. Due to her combativeness state, she was administered Ativan 1 mg IV and has become calm and is sleeping now. Pt was not able to provider any history, ROS or had any complaints. History is obtained by nursing and ER personelle. Significant lab abnormalities are noted on initial blood work which includes: Hemoglobin of 3.5, hematocrit of 11.3, WBC 20.94 with a left shift of 15.38 , plt 228, sodium 141 and potassium 4.0 are within normal ranges. She has MICHA with BUN 127 and creatinine 3.7, lactic acid is 6.1, INR is 1.9, TBili 3.0, AST 104, ALT 31, alk phos 111, CK 205, troponin 74. BP is hypotensive at 90/60, MAP is 67 at bedside, and levophed IV has not yet been started. Tachycardia with HR in mid 90s. She is currently being transfused the first unit of PRBCs, with a second one ordered due to suspected GI bleed with obvious bloody stools and hgb 3.5. Liver cirrhosis seen on imaging could adds bleeding esophageal varicies to the differential diagnosis. Pt is not intubated, currently on RA with O2 sats at 95-97%. She has coarse breath sounds and imaging studies show LLL pneumonia. Urine is turbid, + nitrite, >30 WBC, 4+ bacteria and appears to be obviously infected, wang catheter in place with low urine outs since being in the ER. Admission Exam Per Admitting Provider General: asleep, unawakeable, no apparent distress Head: Normocephalic, atraumatic ENT:+ exophthalmus with bulging eyes, PERRL, no pharyngeal exudate, mucous membranes dry Chest: Coarse breath sounds bilaterally with rales, on room air, o2 sats 95-97% Cardiac: Tachycardic, no murmur, no JVD, normal peripheral pulses, good capillary refill Abdominal: NABS x 4 quadrants, soft, +distended but soft, no fluid wave, nontender to palpation, no rebound or guarding Extremities: Normal inspection, 2+ peripheral pitting edema up to thighs bilaterally, calfs nontender to palpation Skin: slightly jaundiced, liver spots on chest wall Psych: unable to be assessed due to cognitive status Neuro: asleep, orientation not able to be assessed, strength nor sensory able to be assessed. Principal Diagnosis Severe sepsis with septic shock POA Multiorgan failure Acute renal failure Acute hepatic Encephalopathy Multilobar pneumonia UTI Likely GI bleed/profound anemia POA Demand Ishcemia Comfort Care Discharge Exam Patient . No spontaneous breathing. No heart sounds on auscultation. Discharge Data Allergies Allergy/AdvReac Type Severity Reaction Status Date / Time Sulfa (Sulfonamide Allergy Severe EYES AND Unverified 04/02/22 17:06 Antibiotics) THROAT SWELLING Consultations 04/02/22 14:28 ED Decision to Admit Stat 04/02/22 17:13 Consult Care Management Coordinator Routine 04/02/22 20:13 Consult Gastroenterology Routine Procedures Performed Operation Date: 04/03/22 16:00 Actual Procedures p Esophagogastroduodenoscopy - Nenita Lee MD Ordered Studies 04/02/22 12:57 CT head/brain wo con Stat 04/02/22 13:17 CT abd pelvis wo con Stat CT cervical spine wo con Stat CT chest diagnostic wo con Stat 04/03/22 08:46 MRI Brain [MR brain wo con] Urgent Hospital Course (1) Encephalopathy acute: (2) GI bleed: (3) Severe sepsis with septic shock: Plan 66-year-old lady with no known PMH/FH/SH presented to the ED 04/02 after she was found encephalopathic in her home by her landlord and found to be in severe sepsis with septic shock and multiorgan failure at presentation in the ED. Of note, patient was brought to the hospital by EMS after landlord called them due to not seeing the patient for about 3 days and hearing her scream from within the apartment complex, when EMS arrived on the scene she was found on the floor screaming/agitated and was combative. She was brought to the hospital and was found to have multiorgan failure with acute renal failure, acute hepatic encephalopathy and multilobar pneumonia. She was intubated and was admitted to ICU. Patient continued to be unconscious despite being off sedatives. Decision was made by family to do terminal extubation on 04/06 and start comfort care measures. She was started on morphine and Versed drip; transfer to floor to continue comfort care measures. Patient on 04/07 at 6:06 PM. Her sister was at bedside. Total Time Total Time Spent Total Time Spent (In Minutes): 25 Total Time Includes: Examination of the Patient, Discharge Planning, Medication Reconciliation, Communication With Other Providers and Other Discharge Plan Discharge Items Patient Disposition: Other Date/Time: 04/07/22 18:09
== END 2022-04-07 20:05 | disposition expired | DRG 871 ==
LOC: ED 12:51 → 1E 14:46 → SUATTDRO 14:46 → 1E 16:36 → 3W 04-06 17:03